=== PATIENT | female | born 1950 | race Caucasian/White ===

== ENCOUNTER → 2017-12-15 10:10 | Outpatient (CLI) | payer MEDICARE, SELFPAY ==
--- NOTE | 2017-12-15 | DI.CT.S_ITS ---
PROCEDURE: CT CHEST ABD PEL WO CON INDICATIONS: NONHODGKINS LYMPHOMA SURVEILLENCE TECHNIQUE: After the administration of oral contrast, 5 mm thick sections acquired from the lung apices to the symphysis pubis. 5 mm thick coronal and sagittal reformats acquired, with additional 7 mm coronal MIP reformats through the lungs. For radiation dose reduction, the following was used: automated exposure control, adjustment of mA and/or kV according to patient size. COMPARISON: [place], [place], PET/CT SKULL BASE TO MID THIGH, 01/23/2011, 8:29. [facility], CT, NECK CHEST ABD PEL W CONTRAST, 09/02/2011, 10:24. [facility], CT, CHEST/ABD/PEL WITH CONTRAST, 08/17/2012, 8:52. [facility], CT, CHEST/ABD/PEL WITH CONTRAST, 06/06/2013, 9:36. [facility], CT, CHEST/ABD/PEL WITHOUT CONTRAST, 05/31/2014, 13:25. [facility], CT, CHEST/ABD/PEL WITH CONTRAST, 11/20/2014, 8:44. [facility], CT, CHEST/ABD/PEL WITH CONTRAST, 12/23/2015, 12:47. [facility], CT, CHEST/ABD/PEL WITHOUT CONTRAST, 11/26/2016, 9:47. FINDINGS: Image quality: Excellent. CHEST: Lungs and pleura: No acute pulmonary opacities. The 2 mm nodule in the right upper lobe, series 4/image 21, is unchanged since 2015. The 2 mm nodule in the left anterior sulcus on image 34 is unchanged since 2010. No pleural effusions or pneumothorax. Central and peripheral airways are patent are normal in caliber. Mediastinum: Heart size is normal. Trace pericardial effusion. Recurrent mediastinal adenopathy is evident, a pretracheal node on series 3/image 19 measuring 1.4 cm in short diameter. A precarinal node on image 22 measures 1.2 cm. There appears to be recurrence of the subcarinal lymph node measuring 1.3 cm on image 26. There may be hilar adenopathy, indeterminate in the absence of IV contrast. Thoracic aorta and central pulmonary arteries are normal in size. Esophagus is normal in caliber. No hiatal hernia. Chest wall: No axillary or supraclavicular adenopathy by size criteria. Thyroid gland again shows coarse calcifications in the right lobe. ABDOMEN: Solid organs: Liver is normal in size. Multiple, varying sized hepatic cysts are reidentified. Gallbladder appears clear. Pancreas is normal in contours. Spleen is normal in size. No adrenal nodules. Both kidneys are normal in size, without hydronephrosis or nephrolithiasis. Peritoneum and bowel: There is an apparent 3.6 x 7.0 cm soft tissue mass along the lesser curvature/cardia of the stomach, difficult to assess in absence of oral contrast. Small and large bowel loops are normal in caliber and wall thickness. No free fluid or air. Nodes and vessels: Considerable central mesenteric fat stranding is present. Innumerable mesenteric lymph nodes have increased in size and number. Bulky retroperitoneal adenopathy has recurred, such as a left para-aortic conglomerate just below the level of the renal hilum, image 66, measuring 2.7 x 3.6 cm. A right periaortic node, image 63, measures 1.5 cm. The adenopathy extends into the proximal iliac chains. Aorta and inferior vena cava are normal in size. Miscellaneous: No ventral hernias. PELVIS: Genitourinary: Bladder wall thickness is normal. Uterus is atrophic. Miscellaneous: No inguinal hernias or adenopathy. Bones: No suspicious bony lesions. Disc degeneration and lower thoracic spine and L5-S1. No vertebral body compression fractures. IMPRESSION: 1. Recurrent mediastinal and retroperitoneal lymphadenopathy consistent with recurrent lymphoma. 2. Mass effect along the lesser curvature aspect of the proximal stomach could represent lymphoma within the gastric wall and/or adjacent adenopathy. 3. Small bilateral pulmonary nodules remain unchanged and likely benign. No new pulmonary abnormalities. 4. Multiple hepatic hypodensities, larger lesions representing cysts, smaller lesions are indeterminate. 5. Mesenteric fat stranding associated with interval increase in size and number of multiple mesenteric lymph nodes. Dictated by: Brad Wilson M.D. on 12/15/2017 at 11:00 Approved by: Brad Wilson M.D. on 12/15/2017 at 11:32
[2017-12-15 10:55] LABS: Add Manual Diff / Slide Review NO; Basophils Percent Auto 0.8 % (0-2); Eosinophils Percent Auto 2.3 % (2-4); Hematocrit 38.8 % (36-46); Hemoglobin 13.3 g/dL (12.0-16.0); Lymphocytes Percent Auto 9.5 % (25-40); Mean Corpuscular HGB Conc 34.3 % (30-36); Mean Corpuscular Hemoglobin 29.4 PG (26-34); Mean Corpuscular Volume 85.7 fL (80-100); Neutrophils Absolute Auto 5200 /uL (3000-5900); Neutrophils Percent Auto 81.4 % (50-75); Platelet Count 201 X10^3/uL (150-400); Red Blood Cell Count 4.53 X10^6/uL (4.0-5.2); White Blood Cell Count 6.4 X10^3/uL (4.5-11.0)
[2017-12-15 11:06] LABS: Alanine Aminotransferase 24 IU/L (9-52); Albumin 4.1 g/dL (3.5-5.0); Albumin Globulin Ratio 1.7 (1.0-2.8); Alkaline Phosphatase 65 U/L (38-126); Aspartate Aminotransferase 21 IU/L (14-36); BUN Creatinine Ratio 24.4 (6-22); Bilirubin Total 0.5 mg/dL (0.2-1.3); Blood Urea Nitrogen 22 mg/dL (7-17); Calcium 9.7 mg/dL (8.4-10.2); Carbon Dioxide 28 mmol/L (22-32); Chloride 103 mmol/L (98-107); Estimated Glomerular Filt Rate > 60.0 mL/min (>60); Globulin 2.4 g/dL (1.7-4.1); Glucose 102 mg/dL (80-110); HEMOLYSIS < 15 (0-50); Potassium 4.5 mmol/L (3.4-5.1); Sodium 139 mmol/L (137-145); Total Protein 6.5 g/dL (6.3-8.2)
== END ==
PROVIDERS: Nurse Practitioner Gerontology; Family Provider Internal Medicine; PCP Internal Medicine; Visit Provider Specialist
DX: C85.90 Non-Hodgkin lymphoma, unspecified, unspecified site (principal); R91.8 Other nonspecific abnormal finding of lung field; K76.89 Other specified diseases of liver
CPT/HCPCS: 36415; 71250; 74176; 80053; 85025

== ENCOUNTER → 2017-12-15 10:18 | Outpatient (CLI) | payer MEDICARE, SELFPAY | PROVIDERS: Family Provider Internal Medicine; PCP Internal Medicine; Visit Provider Nurse Practitioner Gerontology | DX: C82.90 Follicular lymphoma, unspecified, unspecified site (principal) ==

== ENCOUNTER 2018-01-13 06:27 | Day surgery (SDC) | payer MEDICARE, SELFPAY ==
[2018-01-05 12:45] VITALS: BMI 30.4
[2018-01-13] VITALS (7 sets, daily range): BP systolic 110–158; BP diastolic 56–88; PULSE 89–100; RESP 13–21; TEMP 35.9–37; O2SAT 92–100; BMI 30.4
--- NOTE | 2018-01-13 | PATH_ITS ---
Note [facility] Accession Number: [id number] TESTS RESULT FLAG UNITS REF RANGE LAB 01 GASTROHEPATIC LIGAMENT DIAGNOSIS: 02 GASTROHEPATIC LIGAME INCONCLUSIVE. ATYPIA OF UNDETERMINED SIGNIFICANCE. SOMEWHAT MONOTONOUS LYMPHOCYTE POPULATION PRESENT. Pathologist ICD10: 02 R89.6 Antonia Flores MD, Pathologist NPI- [id number] Bob Noble, Animal Ecologist ([facility]) 01 RECEIVED: 2 ALCOHOL FIXED AND 2 DRIED SLIDES. /VDU FLAG LEGEND: L-Low Normal,H-High Normal,LL-Alert Low,HH-Alert High <-Panic Low,>-Panic High,A-Abnormal,AA-Critical Abnormal Performed at: 01 =Z [facility] [address], [place] [address] Jose Stover MD, 02 [facility] [address] [place] [id number] Santana Camacho MD, Performed at: 01 [facility] [address], [place], [place] [id number] MD Jose Stover MD Phone: [phone]
[2018-01-13] MEDS: LACTATED RINGERS 1,000 ML 42 ML IV ×2 (07:15→08:37)
--- NOTE | 2018-01-13 07:54 | PM.PREOP ---
Pre-operative Note Interval Note Pre-op Check: Yes History & Physical Reviewed by Physician and Yes Exam Performed Changes: No
[2018-01-13] MEDS: CLINDAMYCIN 900 MG/50 ML PIGGYBACK 50 MG IV (08:00)
--- NOTE | 2018-01-13 08:29 | SUR.OPER ---
Supine on padded OR bed, head on pillow, arms secured on padded arm boards at <90 degrees abduction, legs uncrossed, safety belt at thigh, tape over blanket over lower legs.
[2018-01-13] MEDS: BUPIVACAINE 0.5% (PF) VIAL 30 ML INJ (09:14)
[2018-01-13] MEDS: OXYCODONE/ACETAMINOPHEN 5/325 TABLET 1 TAB PO (09:48)
--- NOTE | 2018-01-13 09:48 | P.OP_ITS ---
Operative Date/Time/Diagnoses Date of procedure: 01/13/18 Time of procedure: 09:34 Pre-op diagnosis: Probable lymphoma Post-op diagnosis: same Procedure & Clinicians Procedure: Laparoscopic excisional biopsy of node in the gastrohepatic ligament and Jose Martin-Cut biopsy of a para-aortic node Same procedure as scheduled: Yes Indications: Diagnostic to determine if recurrence of lymphoma is same cell type as original diagnosis Surgeon: Marlo Ernst Click Yes if Unassisted: Yes Anesthesia Type: General Operative Notes Closure Type: primary Specimen(s): other (Node and Jose Martin-Cut tissue) Implants & Drains: None Estimated Blood Loss (mL): 5 Procedure in detail: The patient is placed supine on the operating room table and underwent general endotracheal anesthesia. She was prepped and draped in the usual fashion. Local anesthetic was infiltrated and a curvilinear incision made in the infraumbilical fold. This carried down to level of fascia which was opened under direct vision. Two stay sutures of 0 Polysorb were placed in the fascia. An Rodrick cannula was inserted. The abdomen a quick examination 2 additional ports were placed in the right abdomen. The liver was elevated and a node not far from the edge of the distal lesser curve was readily identified. Using Harmonic scalpel it was dissected from the surrounding structures and removed. It was placed in formalin after placing some of the tissue in preservative for flow cytometry and after making touch prep slides. I identified the very large mass seen on PET-CT. It was not actually in the gastrohepatic omentum but just posterior to it. It appeared to represent a very large para-aortic node overlying what would have been the superior edge of the pancreas. I decided that given the node that I removed already , a diagnosis would probably be easily made from that. Removal of the larger node would probably we fraught with risks of significant injury to the head/body of the pancreas as well as bleeding and lymphatic lymph leak. I attempted a Jose Martin- cut biopsy and obtained a small amount of tissue but found that technique to be somewhat wanting as the length of the needle was not quite adequate to the location of the specimen. There was no significant bleeding through the case. The ports were all removed. The stay sutures at the umbilicus were tied and an additional 2 0 Maxon was placed between the stay sutures. The skin was closed in all areas with 4 Vicryl subcuticular stitch and Steri-Strips. Dressings were applied the patient was awakened and taken to recovery room good condition. Complications: none Condition: stable Disposition: PACU Plan for aftercare: In the office
--- NOTE | 2018-01-13 10:06 | SUR.PHASEII ---
Frequent dry cough noted, pt reported this was normal for her. Wheezes noted throughout her lungs. Dr. Ernst notified and MD evaluated patient. No new orders. Report given to Jaclyn
== END 2018-01-13 10:10 | disposition home or self-care (01) ==
PROVIDERS: Family Provider Internal Medicine; PCP Internal Medicine; Visit Provider Specialist
PROC: (CPT 49320; principal; 2018-01-13 07:45)
DX: R89.6 Abnormal cytological findings in specimens from other organs, systems and tissues (principal); R19.00 Intra-abdominal and pelvic swelling, mass and lump, unspecified site; I10 Essential (primary) hypertension
CPT/HCPCS: 38570; J1100; J2250; J2405; J2704; J3010

== ENCOUNTER 2018-03-03 06:31 | Day surgery (SDC) | payer MEDICARE, SELFPAY ==
[2018-02-25 08:32] VITALS: BMI 30.4
[2018-03-03] VITALS (8 sets, daily range): BP systolic 123–152; BP diastolic 69–85; PULSE 92–107; RESP 10–16; TEMP 36.5–36.9; O2SAT 97–100; BMI 30.4
[2018-03-03] MEDS: LACTATED RINGERS 1,000 ML 42 ML IV (07:51)
--- NOTE | 2018-03-03 07:52 | SUR.OPER ---
Supine on padded OR bed, head on gel donut, rolled towel between shoulder blades, arm padded and tucked at side, legs uncrossed, safety belt at thigh, tape over blanket over lower legs .
--- NOTE | 2018-03-03 08:05 | PM.HP.1 ---
History of Present Illness Date Patient Seen: 03/03/18 Time Patient Seen: 08:00 Chief complaint: [id number] PORTACATH PLACEMENT Narrative: Patient is a woman for Portal cleft placement she has a recurrent lymphoma. She is right-hand dominant I plan to place on the left side. Patient History Medical History Anxiety (Acute) Diffuse lymphadenopathy (Acute) HTN (hypertension) (Acute) History of non-Hodgkin's lymphoma (Acute) Low back pain (Acute) Panic disorder (Acute) Rheumatoid arthritis (Acute) Surgical History H/O breast biopsy (Acute ~1985) History of appendectomy (Acute ~1966) History of thoracentesis (Acute) Family & Social History Family History: Reviewed 03/03/18 by Marlo Ernst MD Social History: household members spouse Tobacco & Substance use: Smoking Status Never smoker alcohol intake never Substance Use Type does not use Meds Home Medications Medication Instructions Recorded Confirmed Type acetaminophen 650 mg PO Q8H PRN #0 12/01/12 01/13/18 History cholecalciferol (vitamin D3) 4,000 iu PO QDAY #0 12/01/12 01/13/18 History [Vitamin D3] imipramine HCl [Tofranil] 50 mg PO Q DAY #0 12/01/12 01/13/18 History lorazepam 0.5 mg PO HSP #0 12/01/12 01/13/18 History sertraline 50 mg PO QDAY #0 12/01/12 01/13/18 History losartan 50 mg PO QDAY #0 12/03/16 01/13/18 History hydrocodone-acetaminophen [[place]] 1 tab PO Q4H PRN #10 tab 01/13/18 Rx Benadryl 1 tab PO 1-2XD PRN 02/21/18 02/21/18 History ibuprofen 2 cap Q4-6H PRN 02/21/18 02/21/18 History ondansetron HCl [Zofran] 4 mg PO Q6-8H PRN #30 tab 02/22/18 Rx Allergies Allergy/AdvReac Type Severity Reaction Status Date / Time amoxicillin Allergy Intermediate Rash Verified 02/25/18 08:29 Sulfa (Sulfonamide Allergy Intermediate Hives Verified 02/25/18 08:29 Antibiotics) Iodinated Contrast- Oral and Allergy Unknown Verified 02/25/18 08:29 IV Dye Review of Systems Review of Systems All systems reviewed & are unremarkable except as noted in HPI and below Exam Vital Signs (past 8 hours): - 03/03/18 07:23 Temperature 97.8 F Pulse Rate 107 H Respiratory Rate 16 Blood Pressure 152/85 H Pulse Oximetry 98 Oxygen Delivery Method Room Air Narrative Exam Narrative: Operative in no apparent distress. Lungs are clear to auscultation no rales or rhonchi. Heart regular rate and rhythm without murmur gallop. Abdomen is soft nontender without mass. Alert and oriented x3. Skin over chest without rash. Assessment & Plan Plan: Assessment/Plan Narrative: Patient for chemotherapy who I have request for Port-A-Cath. I have discussed the procedure and rationale. Risks of bleeding, infection, lung collapse DVT pulmonary embolism all discussed. She appears to understand and wishes to proceed
[2018-03-03] MEDS: CLINDAMYCIN 900 MG/50 ML PIGGYBACK 50 MG IV (08:10)
[2018-03-03] MEDS: HEPARIN 5,000 UNIT, SODIUM CHLORIDE 0.9% 50 ML IV (08:48)
[2018-03-03] MEDS: LIDOCAINE 1% 30 ML INJ INJ (08:48)
--- NOTE | 2018-03-03 08:53 | DI.RAD.S_ITS ---
PROCEDURE: XR CHEST 1V INDICATIONS: PORT A CATH TECHNIQUE: One view of the chest was acquired. COMPARISON: [facility], , CHEST 2 VIEW, 10/27/2010, 11:15. FINDINGS: Surgical changes and devices: Left chest port with tip projecting in the lower SVC Lungs and pleura: No pleural effusions or pneumothorax. Lung volumes are decreased. No acute consolidation. There is scattered subsegmental atelectasis and/or scarring Mediastinum: Mediastinal contours appear normal. Heart size is normal. Bones and chest wall: No suspicious bony lesions. Overlying soft tissues appear unremarkable. IMPRESSION: Low lung volumes and scattered atelectasis. Left chest port with the tip projecting in the lower SVC Dictated by: Carl Herr M.D. on 03/03/2018 at 10:17 Approved by: Carl Herr M.D. on 03/03/2018 at 10:18
--- NOTE | 2018-03-03 09:09 | PM.PREOP ---
Pre-operative Note Interval Note Pre-op Check: Yes History & Physical exam performed today by Physician Changes: No H&P completed within 30 days and has changed as indicated here:: performed prior to procedure.
--- NOTE | 2018-03-03 09:29 | PM.OP.1 ---
Operative Date/Time/Diagnoses Date of procedure: 03/03/18 Time of procedure: 09:29 Pre-op diagnosis: Lymphoma non-Hodgkin's B-cell Post-op diagnosis: same Procedure & Clinicians Procedure: Placement of left subclavian Port-A-Cath Same procedure as scheduled: Yes Indications: IV access for chemo Surgeon: Marlo Ernst Click Yes if Unassisted: Yes Anesthesia Type: General Operative Notes Findings: Tip in the distal SVC near the atrium. No evidence of pneumothorax Closure Type: primary Specimen(s): none sent Implants & Drains: Slim Port-A-Cath Estimated Blood Loss (mL): 5 Blood products transfused: none Procedure in detail: The patient is placed supine on the operating room table with a ship roll between her shoulders. She underwent general LMA anesthesia. She was prepped and draped in the usual fashion. Local anesthetic was infiltrated in field block fashion beneath the left clavicle. Transverse incision was made and carried into the subcu. Needle was inserted on 1st attempt into the subclavian vein. Guidewire was passed the needle removed. Pocket was created once fluoroscopy revealed the wire going into the correct location. The catheter was put together and tapered to appropriate length after putting it in the pocket. Dilator and introducer were passed over the guidewire under fluoroscopic visualization. The guidewire and dilator were removed leaving the introducer in place. The catheter was passed through the introducer and peeled away. This left the tip in the atrium. I backed it out in lower added on the chest wall. It was tacked into place with interrupted silk sutures. The tip appeared to be in the distal SVC. The port was aspirated and flushed with heparinized saline. The subcu was closed with interrupted 3 0 Polysorb. The skin was closed running for Polysorb subcuticular stitch and Steri-Strips. Dressing was applied the patient was awakened and taken to the recovery area in good condition. Chest x-ray was performed there. The above-mentioned findings are noted. Complications: none Condition: stable Disposition: PACU Plan for aftercare: Follow-up in the office
--- NOTE | 2018-03-03 09:35 | P.OP_ITS ---
Operative Date/Time/Diagnoses Date of procedure: 03/03/18 Time of procedure: 09:29 Pre-op diagnosis: Lymphoma non-Hodgkin's B-cell Post-op diagnosis: same Procedure & Clinicians Procedure: Placement of left subclavian Port-A-Cath Same procedure as scheduled: Yes Indications: IV access for chemo Surgeon: Marlo Ernst Click Yes if Unassisted: Yes Anesthesia Type: General Operative Notes Findings: Tip in the distal SVC near the atrium. No evidence of pneumothorax Closure Type: primary Specimen(s): none sent Implants & Drains: Slim Port-A-Cath Estimated Blood Loss (mL): 5 Blood products transfused: none Procedure in detail: The patient is placed supine on the operating room table with a ship roll between her shoulders. She underwent general LMA anesthesia. She was prepped and draped in the usual fashion. Local anesthetic was infiltrated in field block fashion beneath the left clavicle. Transverse incision was made and carried into the subcu. Needle was inserted on 1st attempt into the subclavian vein. Guidewire was passed the needle removed. Pocket was created once fluoroscopy revealed the wire going into the correct location. The catheter was put together and tapered to appropriate length after putting it in the pocket. Dilator and introducer were passed over the guidewire under fluoroscopic visualization. The guidewire and dilator were removed leaving the introducer in place. The catheter was passed through the introducer and peeled away. This left the tip in the atrium. I backed it out in lower added on the chest wall. It was tacked into place with interrupted silk sutures. The tip appeared to be in the distal SVC. The port was aspirated and flushed with heparinized saline. The subcu was closed with interrupted 3 0 Polysorb. The skin was closed running for Polysorb subcuticular stitch and Steri -Strips. Dressing was applied the patient was awakened and taken to the recovery area in good condition. Chest x-ray was performed there. The above- mentioned findings are noted. Complications: none Condition: stable Disposition: PACU Plan for aftercare: Follow-up in the office
== END 2018-03-03 10:02 | disposition home or self-care (01) ==
PROVIDERS: Family Provider Internal Medicine; PCP Internal Medicine; Visit Provider Specialist
PROC: (CPT 36561; principal; 2018-03-03 07:45)
DX: Z45.2 Encounter for adjustment and management of vascular access device (principal); F41.9 Anxiety disorder, unspecified; I10 Essential (primary) hypertension; M06.9 Rheumatoid arthritis, unspecified; M54.9 Dorsalgia, unspecified; F41.0 Panic disorder [episodic paroxysmal anxiety]
CPT/HCPCS: 36561; 71045; 76000; C1788; J0171; J1100; J1644; J2405; J2704; J3010

== ENCOUNTER 2018-06-09 17:23 | Emergency (ER) | payer MEDICARE, SELFPAY ==
[2018-06-09 17:25] VITALS: BP 181/93; PULSE 116; RESP 16; TEMP 38.6; O2SAT 99; BMI 31.2
--- NOTE | 2018-06-09 18:03 | DI.RAD.S_ITS ---
PROCEDURE: XR CHEST 1V INDICATIONS: suspected sepsis TECHNIQUE: One view of the chest was acquired. COMPARISON: [facility], [place], XR CHEST 1V, 03/03/2018, 9:14. FINDINGS: Surgical changes and devices: Left chest port with the tip projecting in the mid SVC. Lungs and pleura: No pleural effusions or pneumothorax. Patchy retrocardiac opacities which appear unchanged probably scarring/atelectasis. Mediastinum: Mediastinal contours appear normal. Heart size is normal. Bones and chest wall: No suspicious bony lesions. Overlying soft tissues appear unremarkable. IMPRESSION: No acute disease or interval change. Dictated by: Carl Herr M.D. on 06/09/2018 at 19:13 Approved by: Carl Herr M.D. on 06/09/2018 at 19:15
[2018-06-09 18:34] LABS: Hematocrit 31.2 % (36-46); Mean Corpuscular HGB Conc 35.3 % (30-36); Mean Corpuscular Hemoglobin 30.3 PG (26-34); Mean Corpuscular Volume 85.9 fL (80-100); Platelet Count 188 X10^3/uL (150-400); Red Blood Cell Count 3.63 X10^6/uL (4.0-5.2); Red Cell Distribution Width 14.9 % (11.6-14.8)
[2018-06-09 18:36] LABS: Prothrombin Time 11.9 SECONDS (10.1-12.7)
[2018-06-09 18:37] LABS: White Blood Cell Count 1.8 X10^3/uL (4.5-11.0)
[2018-06-09 18:38] LABS: Add Manual Diff / Slide Review YES
[2018-06-09 18:39] LABS: PTT Partial Thromboplastin Tim 33 SECONDS (26.4-36.2)
[2018-06-09 18:43] LABS: Alanine Aminotransferase 28 IU/L (9-52); Albumin Globulin Ratio 1.4 (1.0-2.8); Alkaline Phosphatase 83 U/L (38-126); Aspartate Aminotransferase 27 IU/L (14-36); BUN Creatinine Ratio 17.5 (6-22); Bilirubin Total 0.6 mg/dL (0.2-1.3); Blood Urea Nitrogen 14 mg/dL (7-17); Calcium 9.3 mg/dL (8.4-10.2); Carbon Dioxide 24 mmol/L (22-32); Chloride 97 mmol/L (98-107); Estimated Glomerular Filt Rate > 60.0 mL/min (>60); Globulin 2.8 g/dL (1.7-4.1); Glucose 100 mg/dL (80-110); HEMOLYSIS < 15 (0-50); Lactate (Lactic Acid) 1.2 mmol/L (0.7-2.1); Lipase 107 U/L (23-300); Potassium 4.2 mmol/L (3.4-5.1); Sodium 130 mmol/L (137-145); Total Protein 6.8 g/dL (6.3-8.2)
[2018-06-09 18:56] LABS: Procalcitonin 0.13 ng/mL (<0.5)
[2018-06-09] MEDS: SODIUM CHLORIDE 0.9% 1,000 ML 1000 ML IV (19:31)
[2018-06-09 19:32] LABS: Band Neutrophils Percent 3.3 % (3-7); Eosinophils Percent Manual 12.2 % (2-4); Lymphocytes Percent Manual 3.3 % (25-45); Neutrophils Absolute Manual 1159 /uL (3000-5900); RBC Morphology Normal Morphology; Segmented Neutrophils Percent 61.1 % (38-70); Total Cells Counted 90
[2018-06-09 19:40] VITALS: BP 161/76; PULSE 88; RESP 18; O2SAT 98
[2018-06-09 20:00] LABS: Influenza A and B by PCR Rapid Negative (Negative)
[2018-06-09 20:31] LABS: Bacteria Urine None Seen; RBC Urine None Seen (0-5/HPF); WBC Urine None Seen (0-5/HPF)
[2018-06-09 20:32] LABS: Appearance Urine UA CLEAR; Bilirubin Urine UA NEGATIVE (NEGATIVE); Color Urine UA YELLOW; Glucose Urine UA NEGATIVE (Negative); Ketones Urine UA NEGATIVE (NEGATIVE); Leukocyte Esterase Urine UA NEGATIVE (NEGATIVE); Nitrite Urine UA NEGATIVE (Negative); Occult Blood Urine UA NEGATIVE (Negative); Protein Urine UA NEGATIVE (Negative); Specific Gravity Urine UA <=1.005 (1.000-1.035); Urobilinogen Urine UA 0.2 E.U./dL (0.2)
[2018-06-09 20:38] LABS: Culture Indicated Urine Cult Not Indicated; Urine Comments Microscopic Normal
[2018-06-09 21:27] VITALS: BP 154/69; PULSE 97; RESP 16; O2SAT 100
--- NOTE | 2018-06-09 21:49 | PC.NURSE ---
discontinued port access with saline flush followed by 500u heparin, covered with bandaid.
--- NOTE | 2018-06-10 15:40 | ED.FEVER ---
HPI - Fever General Chief Complaint: Fever Stated Complaint: ONCOLOGY PATIENT HAS FEVER Time Seen by Provider: 06/09/18 18:42 Source: patient and family Mode of arrival: ambulatory Limitations: no limitations History of Present Illness HPI Narrative: Patient comes to the emergency department complaining of fever and body aches that started today. Her T-max was 101?. She denies any other symptoms. No cough, rhinorrhea, sore throat, ear pain, chest pain, shortness of breath, abdominal pain, nausea, or new diarrhea. Patient has not been exposed to anybody who has been known to be sick. She states she has been around her 8 in 10-year-old grandchildren, but they have been well, as far she knows. Patient is currently receiving chemotherapy for non-Hodgkin's lymphoma. She states her last round was on June 02. Patient has a longstanding history of this disease, which was diagnosed 20 years ago. She states she was in remission for 5 years, and then several months ago, was found to have new masses, so was started on chemo again. She has had for cycle so far and states she is getting it every 28 days. She has been seen Dr. Kearns for this. The patient states that she took Tylenol prior to coming to the emergency department, and actually is feeling quite well now. She states that her white blood cell counts have been normal throughout her courses of chemotherapy. She states that as far as she knows, the lymphoma is responding well to the chemo. Related Data Home Medications Medication Instructions Recorded Confirmed acetaminophen 650 mg PO Q8H PRN #0 12/01/12 05/30/18 cholecalciferol (vitamin D3) 4,000 iu PO QDAY #0 12/01/12 05/30/18 [Vitamin D3] imipramine HCl [Tofranil] 50 mg PO Q DAY #0 12/01/12 05/30/18 lorazepam 0.5 mg PO HSP #0 12/01/12 05/30/18 sertraline 50 mg PO QDAY #0 12/01/12 05/30/18 losartan 50 mg PO QDAY #0 12/03/16 05/30/18 Benadryl 1 tab PO 1-2XD PRN 02/21/18 05/30/18 ibuprofen 2 cap Q4-6H PRN 02/21/18 05/30/18 Previous Rx's Medication Instructions Recorded ondansetron HCl [Zofran] 4 mg PO Q6-8H PRN #30 tab 02/22/18 lorazepam 0.5 mg PO BEDTIME PRN #30 tab 05/30/18 Allergies Allergy/AdvReac Type Severity Reaction Status Date / Time amoxicillin Allergy Intermediate Rash Verified 06/09/18 17:25 Sulfa (Sulfonamide Allergy Intermediate Hives Verified 06/09/18 17:25 Antibiotics) Iodinated Contrast- Oral and Allergy Unknown Verified 06/09/18 17:25 IV Dye Review of Systems Constitutional Reports body ache(s), Denies chills, Reports fever(s), Denies lethargy and Denies weakness Eyes Denies change in vision, Denies eye discharge, Denies irritation and Denies loss of vision ENT Ears, Nose, Mouth, and Throat: Denies change in voice, Denies neck pain and Denies sore throat Cardiovascular Denies chest pain, Denies irregular heart rhythm, Denies lightheadedness, Denies palpitations, Denies dyspnea, Denies dyspnea on exertion and Denies orthopnea Respiratory Denies cough, Denies dyspnea, Denies dyspnea on exertion and Denies wheezing Gastrointestinal Gastrointestinal: Denies abdominal pain, Denies change in bowel habits, Denies diarrhea, Denies nausea and Denies vomiting Genitourinary Denies hematuria, Denies flank pain, Denies urinary incontinence and Denies urinary urgency Musculoskeletal Denies neck pain Integumentary/Breasts Denies pruritus, Denies erythema, Denies rash and Denies wounds Neurologic Denies confusion, Denies loss of vision and Denies weakness Psychiatric Denies anxiety, Denies confusion, Denies depression, Denies homicidal ideation and Denies suicidal ideation Endocrine Denies palpitations Hematologic/Lymphatic Denies easy bruising Allergic/Immunologic Denies wheezing [facility] Medical History Anxiety (Acute) Diffuse lymphadenopathy (Acute) HTN (hypertension) (Acute) History of non-Hodgkin's lymphoma (Acute) Low back pain (Acute) Panic disorder (Acute) Rheumatoid arthritis (Acute) Surgical History H/O breast biopsy (Acute ~1985) History of appendectomy (Acute ~1966) History of thoracentesis (Acute) Family History Mother Hypertension Stroke Brother Hodgkins lymphoma Grandmother Stroke Social History marital status: household members: spouse Smoking Status: Never smoker alcohol intake: never Exam Initial Vital Signs Initial Vital Signs: Vital Signs Temperature 101.4 F H 06/09/18 17:25 Pulse Rate 116 H 06/09/18 17:25 Respiratory Rate 16 06/09/18 17:25 Blood Pressure 181/93 H 06/09/18 17:25 Pulse Oximetry 99 06/09/18 17:25 Const General: cooperative and well developed Nutritional Appearance: well nourished Orientation: alert, awake, oriented x3 and not confused HENMT Head: normocephalic and atraumatic Ears: external ears normal Nose: external nose normal and No nasal discharge Face and sinus: face symmetric and No dry mucous membranes Mouth: oral mucosae normal and moist mucous membranes Teeth and gingiva: dentition normal Throat: tonsils normal and uvula midline Eyes General: appearance normal, both eyes and all related structures Eyelids: eyelids normal Conjunctivae: conjunctivae normal Sclera: sclerae normal Pupils: PERRL EOM: EOM intact bilaterally Neck Neck: normal visual inspection, trachea midline, No lymphadenopathy, No midline deformity and No JVD Lymphatic: No lymphedema Chest Chest: normal inspection of the chest Resp Effort & Inspection: normal respiratory effort, able to speak in complete sentences, no respiratory distress and no use of accessory muscles Auscultation: clear to auscultation bilaterally, no rales, no rhonchi and no wheezes Cardio Rate: regular rate Rhythm: regular rhythm Heart Sounds: no click, no gallops, no murmurs and no rubs Pulses: normal peripheral pulses GI Inspection: non-distended Palpation: soft, no hepatosplenomegaly, No guarding, No pulsatile mass and No tender Back/Spine/Pelvis Back: No CVA tenderness Cervical Spine: cervical ROM normal and No pain with cervical ROM Thoracic/Lumbar Spine: thoracic and lumbar spine normal to inspection Skin General: no rashes or lesions noted, No jaundice and No petechiae Neuro General: alert, oriented x3, gait normal and no focal motor deficits Speech: speech normal Extrem General: full ROM, no clubbing, cyanosis or edema, no pedal edema and no calf tenderness Psych Appearance: well kempt Mental Status: mental status grossly normal Attitude: cooperative Thought Content: normal and suicidality Judgment: judgment good Course Course Narrative: In follow-up for her scheduled appointment tomorrow. Patient was given a L fluid and worked up in the emergency department for her fever. Chest x-ray, urinalysis and blood cultures were all performed, as well as influenza testing. CBC and CMP were also done. Patient's white blood cell count was found to be significantly less than her previously normal levels, a 1.8. Her absolute neutrophil count was 1159. The patient was extremely well-appearing, and did not have any other complaints. I spoke with Dr. Bojorquez, who is on-call for the patient's oncology group. We reviewed the patient's labs on the symptoms, and Dr. Bojorquez felt the patient could go home, and follow up for her scheduled oncology appointment tomorrow. I discussed the plan with patient and family, who were agreeable. We have discussed the usual indications for return, as well. Orders Ordered: Discontinued Medications Sodium Chloride (Normal Saline 0.9%) 1,000 mls @ 1,000 mls/hr IV BOLUS ONE Stop: 06/09/18 19:02 Last Infusion: 06/09/18 20:40 Dose: 0 mls/hr Admin: 06/09/18 19:31 Dose: 1,000 mls/hr Sodium Chloride (Normal Saline 0.9%) 1,000 mls @ 1,000 mls/hr IV BOLUS ONE Stop: 06/09/18 19:59 Last Admin: 06/09/18 21:46 Dose: Not Given MDM - Fever Medical Records Attestation: I reviewed the patient's medical records. Lab Data Attestation: I reviewed the patient's lab results. Result diagrams: 06/09/18 18:15 06/09/18 18:15 Lab Results 06/09/18 06/09/18 06/09/18 Range/Units 18:15 18:15 18:15 WBC 1.8 L* (4.5-11.0) X10^3/uL RBC 3.63 L (4.0-5.2) X10^6/uL Hgb 11.0 L (12.0-16.0) g/dL Hct 31.2 L (36-46) % MCV 85.9 (80-100) fL MCH 30.3 (26-34) PG MCHC 35.3 (30-36) % RDW 14.9 H (11.6-14.8) % Plt Count 188 (150-400) X10^3/uL Neut % (Auto) Not Reportable Lymph % (Auto) Not Reportable [place] % (Auto) Not Reportable Eos % (Auto) Not Reportable Baso % (Auto) Not Reportable Lymph # (Auto) Not Reportable [place] # (Auto) Not Reportable Baso # (Auto) Not Reportable Total Counted 90 Seg Neutrophils % 61.1 (38-70) % Band Neutrophils % 3.3 (3-7) % Lymphocytes % (Manual) 3.3 L (25-45) % Monocytes % (Manual) 20.0 H (2-11) % Eosinophils % (Manual) 12.2 H (2-4) % Neutrophils # (Manual) 1159 L (3510-7399) /uL RBC Morphology Normal morphology PT 11.9 (10.1-12.7) SECONDS INR 1.0 (0.9-1.3) APTT 33 (26.4-36.2) SECONDS Sodium (137-145) mmol/L Potassium (3.4-5.1) mmol/L Chloride (98-107) mmol/L Carbon Dioxide (22-32) mmol/L BUN (7-17) mg/dL Creatinine (0.52-1.04) mg/dL Estimated GFR (>60) mL/min BUN/Creatinine Ratio (6-22) Glucose (80-110) mg/dL Lactate (0.7-2.1) mmol/L Calcium (8.4-10.2) mg/dL Total Bilirubin (0.2-1.3) mg/dL AST (14-36) IU/L ALT (9-52) IU/L Alkaline Phosphatase (38-126) U/L Total Protein (6.3-8.2) g/dL Albumin (3.5-5.0) g/dL Globulin (1.7-4.1) g/dL Albumin/Globulin Ratio (1.0-2.8) Lipase (23-300) U/L Procalcitonin 0.13 (<0.5) ng/mL Urine Color Urine Appearance Urine pH (4.5-8.0) Ur Specific [place] (1.000-1.035) Urine Protein (Negative) Urine Glucose (UA) (Negative) g/dL Urine Ketones (NEGATIVE) Urine Occult Blood (Negative) Urine Nitrate (Negative) Urine Bilirubin (NEGATIVE) Urine Urobilinogen (0.2) E.U./dL Ur Leukocyte Esterase (NEGATIVE) Urine RBC (0-5/HPF) Urine WBC (0-5/HPF) Urine Bacteria (None) Ur Culture Indicated? Micro UA Comment Influenza A & B (PCR) (Negative) 06/09/18 06/09/18 06/09/18 Range/Units 18:15 18:15 19:40 WBC (4.5-11.0) X10^3/uL RBC (4.0-5.2) X10^6/uL Hgb (12.0-16.0) g/dL Hct (36-46) % MCV (80-100) fL MCH (26-34) PG MCHC (30-36) % RDW (11.6-14.8) % Plt Count (150-400) X10^3/uL Neut % (Auto) Lymph % (Auto) [place] % (Auto) Eos % (Auto) Baso % (Auto) Lymph # (Auto) [place] # (Auto) Baso # (Auto) Total Counted Seg Neutrophils % (38-70) % Band Neutrophils % (3-7) % Lymphocytes % (Manual) (25-45) % Monocytes % (Manual) (2-11) % Eosinophils % (Manual) (2-4) % Neutrophils # (Manual) (7430-6065) /uL RBC Morphology PT (10.1-12.7) SECONDS INR (0.9-1.3) APTT (26.4-36.2) SECONDS Sodium 130 L (137-145) mmol/L Potassium 4.2 (3.4-5.1) mmol/L Chloride 97 L (98-107) mmol/L Carbon Dioxide 24 (22-32) mmol/L BUN 14 (7-17) mg/dL Creatinine 0.80 (0.52-1.04) mg/dL Estimated GFR > 60.0 (>60) mL/min BUN/Creatinine Ratio 17.5 (6-22) Glucose 100 (80-110) mg/dL Lactate 1.2 (0.7-2.1) mmol/L Calcium 9.3 (8.4-10.2) mg/dL Total Bilirubin 0.6 (0.2-1.3) mg/dL AST 27 (14-36) IU/L ALT 28 (9-52) IU/L Alkaline Phosphatase 83 (38-126) U/L Total Protein 6.8 (6.3-8.2) g/dL Albumin 4.0 (3.5-5.0) g/dL Globulin 2.8 (1.7-4.1) g/dL Albumin/Globulin Ratio 1.4 (1.0-2.8) Lipase 107 (23-300) U/L Procalcitonin (<0.5) ng/mL Urine Color Urine Appearance Urine pH (4.5-8.0) Ur Specific [place] (1.000-1.035) Urine Protein (Negative) Urine Glucose (UA) (Negative) g/dL Urine Ketones (NEGATIVE) Urine Occult Blood (Negative) Urine Nitrate (Negative) Urine Bilirubin (NEGATIVE) Urine Urobilinogen (0.2) E.U./dL Ur Leukocyte Esterase (NEGATIVE) Urine RBC (0-5/HPF) Urine WBC (0-5/HPF) Urine Bacteria (None) Ur Culture Indicated? Micro UA Comment Influenza A & B (PCR) Negative (Negative) 06/09/18 Range/Units 20:20 WBC (4.5-11.0) X10^3/uL RBC (4.0-5.2) X10^6/uL Hgb (12.0-16.0) g/dL Hct (36-46) % MCV (80-100) fL MCH (26-34) PG MCHC (30-36) % RDW (11.6-14.8) % Plt Count (150-400) X10^3/uL Neut % (Auto) Lymph % (Auto) [place] % (Auto) Eos % (Auto) Baso % (Auto) Lymph # (Auto) [place] # (Auto) Baso # (Auto) Total Counted Seg Neutrophils % (38-70) % Band Neutrophils % (3-7) % Lymphocytes % (Manual) (25-45) % Monocytes % (Manual) (2-11) % Eosinophils % (Manual) (2-4) % Neutrophils # (Manual) (1879-2072) /uL RBC Morphology PT (10.1-12.7) SECONDS INR (0.9-1.3) APTT (26.4-36.2) SECONDS Sodium (137-145) mmol/L Potassium (3.4-5.1) mmol/L Chloride (98-107) mmol/L Carbon Dioxide (22-32) mmol/L BUN (7-17) mg/dL Creatinine (0.52-1.04) mg/dL Estimated GFR (>60) mL/min BUN/Creatinine Ratio (6-22) Glucose (80-110) mg/dL Lactate (0.7-2.1) mmol/L Calcium (8.4-10.2) mg/dL Total Bilirubin (0.2-1.3) mg/dL AST (14-36) IU/L ALT (9-52) IU/L Alkaline Phosphatase (38-126) U/L Total Protein (6.3-8.2) g/dL Albumin (3.5-5.0) g/dL Globulin (1.7-4.1) g/dL Albumin/Globulin Ratio (1.0-2.8) Lipase (23-300) U/L Procalcitonin (<0.5) ng/mL Urine Color Yellow Urine Appearance Clear Urine pH 6.0 (4.5-8.0) Ur Specific [place] <=1.005 (1.000-1.035) Urine Protein Negative (Negative) Urine Glucose (UA) Negative (Negative) g/dL Urine Ketones Negative (NEGATIVE) Urine Occult Blood Negative (Negative) Urine Nitrate Negative (Negative) Urine Bilirubin Negative (NEGATIVE) Urine Urobilinogen 0.2 (0.2) E.U./dL Ur Leukocyte Esterase Negative (NEGATIVE) Urine RBC None seen (0-5/HPF) Urine WBC None seen (0-5/HPF) Urine Bacteria None seen (None) Ur Culture Indicated? Cult not indicated Micro UA Comment Microscopic normal Influenza A & B (PCR) (Negative) Imaging Data Chest x-ray: Attestation: I personally reviewed and interpreted this imaging study as follows: (Negative) Radiologist's impression: PROCEDURE: XR CHEST 1V INDICATIONS: suspected sepsis TECHNIQUE: One view of the chest was acquired. COMPARISON: [facility], CR, XR CHEST 1V, 03/03/2018, 9:14. FINDINGS: Surgical changes and devices: Left chest port with the tip projecting in the mid SVC. Lungs and pleura: No pleural effusions or pneumothorax. Patchy retrocardiac opacities which appear unchanged probably scarring/atelectasis. Mediastinum: Mediastinal contours appear normal. Heart size is normal. Bones and chest wall: No suspicious bony lesions. Overlying soft tissues appear unremarkable. IMPRESSION: No acute disease or interval change. Dictated by: Carl Herr M.D. on 06/09/2018 at 19:13 Approved by: Carl Herr M.D. on 06/09/2018 at 19:15 Discharge Plan Departure Patient Disposition: Home Clinical Impression: Fever of unknown origin, Non-Hodgkin lymphoma Discharge Date/Time: 06/09/18 21:54 Interventions: ED Discharge Assessment Last Done: 06/09/18 21:53 Instructions: DI for Fever (Symptom) -- Adult Activity Restrictions/Additional Instructions: Your labs all look good, other than your white blood cell count, which was low. This was the first time your white blood cell count was low. Your case has been discussed with Dr. Isaac, who feels that you can go home and follow up for your appointment tomorrow. Prescriptions: No Action imipramine HCl [Tofranil] 50 MG tablet 50 mg PO Q DAY Qty: 0 RF: 0 acetaminophen 650 mg Tablet Extended Release 650 mg PO Q8H PRN (Reason: pain) Qty: 0 RF: 0 lorazepam 0.5 MG tablet 0.5 mg PO HSP Qty: 0 RF: 0 sertraline 50 MG tablet 50 mg PO QDAY Qty: 0 RF: 0 cholecalciferol (vitamin D3) [Vitamin D3] 2,000 UNIT capsule 4,000 iu PO QDAY Qty: 0 RF: 0 losartan 50 MG tablet 50 mg PO QDAY Qty: 0 RF: 0 ibuprofen 200 mg capsule 2 cap Q4-6H PRN (Reason: Pain (Scale Score 1-3)) RF: 0 Benadryl 25 mg tablet 1 tab PO 1-2XD PRN (Reason: Congestion) RF: 0 ondansetron HCl [Zofran] 4 mg Tablet 4 mg PO Q6-8H PRN (Reason: Nausea) Qty: 30 RF: 2 lorazepam 0.5 mg Tablet 0.5 mg PO BEDTIME PRN (Reason: Sleep) Qty: 30 RF: 0 Referrals: Marlene Kearns MD [Physician] -
== END 2018-06-09 21:54 | disposition home or self-care (01) ==
PROVIDERS: Emergency Medicine; Emergency Provider Emergency Medicine; Family Provider Internal Medicine; PCP Internal Medicine
DX: R50.9 Fever, unspecified (principal); C85.90 Non-Hodgkin lymphoma, unspecified, unspecified site
CPT/HCPCS: 36415; 36591; 71045; 80053; 81001; 83605; 83690; 84145; 85025; 85610; 85730; 87040; 87400; 96360; 99283; 99284

== ENCOUNTER → 2018-06-14 10:54 | Outpatient (CLI) | payer MEDICARE, SELFPAY ==
--- NOTE | 2018-06-14 12:34 | DI.CT.S_ITS ---
PROCEDURE: CT SOFT TISSUE NECK W CON INDICATIONS: Restaging non hodgkins lymphoma TECHNIQUE: After the administration of intravenous contrast, 3.0 mm axial sections acquired from the sella to the aortic arch. Additional oblique axial 3.0 mm sections acquired through the pharynx. 3 mm thick coronal and sagittal reformats were generated. For radiation dose reduction, the following was used: automated exposure control. COMPARISON: [facility], CT, CT CHEST ABD PEL WO CON, 12/15/2017, 10:22. [facility], CT, CT CHEST ABD PEL W CON, 06/14/2018, 12:19. [facility], [place], PET NECK TO MID THIGH, 12/24/2017, 13:31. FINDINGS: Image quality: Excellent. Lymph nodes: No enlarged lymph nodes seen throughout the neck. There is a 5 mm superiorly within the lymph node in the right high paratracheal region, which measured 1.9 cm on 12/24/2017. Vessels: Visualized vasculature appears patent. Neck spaces: The oropharynx, nasopharynx, and pharynx demonstrate no mucosal lesions. The vocal cords, false vocal cords, pyriform sinuses, epiglottis, vallecula, and tongue base all appear normal. Extramucosal spaces appear unremarkable. Glands: The parotid and submandibular glands appear normal. Thyroid gland is enlarged and contains multiple nodules. Miscellaneous: Visualized brain and orbits appear normal. Lung apices appear clear. There is mild/moderate emphysema. Superficial soft tissues appear normal. Bones: No suspicious bony lesions. Visualized sinuses and mastoids appear unremarkable. IMPRESSION: 1. No cervical lymphadenopathy by size criteria. 2. Decreased in size of superior mediastinum lymph nodes. 3. Enlarged thyroid gland with multiple nodules. Recommend thyroid ultrasound followup. Dictated by: Maurice Deleon M.D. on 06/14/2018 at 16:54 Approved by: Maurice Deleon M.D. on 06/15/2018 at 8:06
--- NOTE | 2018-06-14 12:34 | DI.CT.S_ITS ---
PROCEDURE: CT CHEST ABD PEL W CON INDICATIONS: Restaging non hodgkins lymphoma TECHNIQUE: After the administration of oral and intravenous contrast, 5 mm thick sections acquired from the lung apices to the symphysis. 5 mm coronal and sagittal reformats were performed, with additional 7 mm coronal MIP reformats through the lungs. For radiation dose reduction, the following was used: automated exposure control, adjustment of mA and/or kV according to patient size. COMPARISON: [facility], CT, CT CHEST ABD PEL WO CON, 12/15/2017, 10:22. [facility], CT, CHEST/ABD/PEL WITHOUT CONTRAST, 11/26/2016, 9:47. [facility], CT, CHEST/ABD/PEL WITH CONTRAST, 11/20/2014, 8:44. [facility], CT, CHEST/ABD/PEL WITHOUT CONTRAST, 05/31/2014, 13:25. [facility], CT, CHEST/ABD/PEL WITH CONTRAST, 12/23/2015, 12:47. FINDINGS: Image quality: Excellent. CHEST: Lungs and pleura: No acute consolidation pleural effusion or pneumothorax. There is scattered atelectasis and scarring. 2 mm nodule in the left anterior sulcus is unchanged. No suspicious pulmonary nodule identified. Mediastinum: Heart size is mildly enlarged. No pericardial effusion. Shoddy paratracheal lymph nodes presumably treated disease. No pathologic enlargement by size criteria Thoracic aorta and central pulmonary arteries are normal in size. Scattered atherosclerotic calcifications. Esophagus is normal in caliber. No hiatal hernia. Chest wall: No axillary or supraclavicular adenopathy by size criteria. Thyroid gland demonstrates heterogeneous appearance with indeterminate nodule in the right lobe, and nonspecific calcification overall unchanged. ABDOMEN: Solid organs: Numerous hypodense lesions throughout the liver, the larger lesions compatible with cysts although some of these are technically too small to characterize. Overall, these appear stable Gallbladder negative. Biliary system is non dilated. Pancreas enhances normally. Spleen is normal in size and enhancement. No adrenal nodules. Kidneys demonstrate normal size and enhancement. There is mild prominence of the renal collecting system bilaterally in addition in the proximal ureters however findings appear grossly unchanged as the prior study. No urolithiasis seen. Peritoneum and bowel: Residual contrast material is present within the distal esophagus raising possibility of reflux or dysmotility. Bowel loops demonstrate normal wall thickness and caliber. No free fluid or air. Stomach decompressed and grossly unremarkable Nodes and vessels: Previous large retroperitoneal and mesenteric lymphadenopathy has markedly decreased/resolved. There is residual stranding seen in the retroperitoneum was presumably treated disease. Mildly enlarged lymphadenopathy in the (region on image 67 series 2 measuring 18 x 12 mm also represent treated disease or recurrence continued observation to document stable appearance or resolution. Aorta and inferior vena cava are normal in size. Miscellaneous: No ventral hernias. PELVIS: Genitourinary: Bladder grossly unremarkable Miscellaneous: No inguinal hernias or adenopathy. Bones: No suspicious bony lesions. No vertebral body compression fractures. IMPRESSION: Overall, marked interval improvement/resolution of retroperitoneal and mediastinal lymphadenopathy since 12/15/17. Residual stranding and lymphoid tissue in the retroperitoneum probably represents treated disease. There is one left para-aortic prominent lymph node measuring up to 18 mm is also probably treated disease although recommend close attention on subsequent followup examinations to ensure stability or resolution. Elsewhere, no other pathologically enlarged lymph node. Cardiomegaly. Hepatic cysts. Some of these are technically too small to characterize however demonstrate stable appearance. Dictated by: Carl Herr M.D. on 06/14/2018 at 12:57 Approved by: Carl Herr M.D. on 06/14/2018 at 13:10
== END ==
PROVIDERS: Visit Provider Internal Medicine Hematology & Oncology
DX: C85.90 Non-Hodgkin lymphoma, unspecified, unspecified site (principal); I51.7 Cardiomegaly; K76.89 Other specified diseases of liver; E04.2 Nontoxic multinodular goiter
CPT/HCPCS: 70491; 71260; 74177; Q9967

== ENCOUNTER → 2019-11-22 11:06 | Outpatient (CLI) | payer MEDICARE, OTHER, SELFPAY ==
[2019-11-22 12:47] LABS: Add Manual Diff / Slide Review NO; Basophils Absolute Auto 0 /uL (0-100); Basophils Percent Auto 0.2 % (0-2); Eosinophils Absolute Auto 100 /uL (0-450); Eosinophils Percent Auto 2.6 % (2-4); Hematocrit 36.2 % (36-46); Hemoglobin 12.6 g/dL (12.0-16.0); Lymphocytes Absolute Auto 300 /uL (1100-4500); Lymphocytes Percent Auto 6.2 % (25-40); Mean Corpuscular HGB Conc 34.9 % (30-36); Mean Corpuscular Hemoglobin 31.2 PG (26-34); Mean Corpuscular Volume 89.4 fL (80-100); Monocytes Absolute Auto 400 /uL (0-900); Monocytes Percent Auto 8.6 % (3-14); Neutrophils Absolute Auto 3900 /uL (1500-7000); Neutrophils Percent Auto 82.4 % (50-75); Platelet Count 214 X10^3/uL (150-400); Red Blood Cell Count 4.05 X10^6/uL (4.0-5.2); Red Cell Distribution Width 14.2 % (11.6-14.8); White Blood Cell Count 4.8 X10^3/uL (4.5-11.0)
[2019-11-22 13:02] LABS: Alanine Aminotransferase 27 IU/L (<35); Albumin 4.3 g/dL (3.5-5.0); Albumin Globulin Ratio 1.9 (1.0-2.8); Alkaline Phosphatase 75 U/L (38-126); Aspartate Aminotransferase 30 IU/L (14-36); BUN Creatinine Ratio 22.9 (6-22); Bilirubin Total 0.6 mg/dL (0.2-1.3); Blood Urea Nitrogen 24 mg/dL (7-17); Calcium 9.9 mg/dL (8.4-10.2); Carbon Dioxide 31 mmol/L (22-32); Chloride 104 mmol/L (98-107); Cholesterol 287 mg/dL (140-199); Estimated Glomerular Filt Rate 51.8 mL/min (>60); Globulin 2.3 g/dL (1.7-4.1); Glucose 111 mg/dL (80-110); HDL Cholesterol 29 mg/dL (40-60); HEMOLYSIS < 15 (0-50); LDL Cholesterol Calculated 195 mg/dL (<100); Magnesium 2.4 mg/dL (1.6-2.3); Potassium 4.4 mmol/L (3.4-5.1); Sodium 138 mmol/L (137-145); Total Protein 6.6 g/dL (6.3-8.2); Triglycerides 315 mg/dL (35-150)
[2019-11-22 13:08] LABS: Hemoglobin A1C% w Est Avg Glu 5.3 % (4.0-6.0)
[2019-11-22 13:35] LABS: TSH w/ Reflex to FT4 1.64 uIU/mL (0.47-4.68)
[2019-11-22 13:51] LABS: Vitamin B12 944 pg/mL (239-931)
[2019-11-22 18:10] LABS: Vitamin D 25 Hydroxy (D3) 52.3 ng/mL (30.0-100.0)
[2019-11-23 08:43] LABS: Parathyroid Hormone Int 51 pg/mL (15-65)
[2019-11-26 12:36] LABS: Metanephrine,Plasma 24.4 pg/mL (0.0-88.0)
== END ==
PROVIDERS: Family Provider Internal Medicine; PCP Physician Assistant; Referring Provider Physician Assistant; Visit Provider Physician Assistant
DX: F32.9 Major depressive disorder, single episode, unspecified (principal); I10 Essential (primary) hypertension; C85.90 Non-Hodgkin lymphoma, unspecified, unspecified site; E04.1 Nontoxic single thyroid nodule; E78.2 Mixed hyperlipidemia; E55.9 Vitamin D deficiency, unspecified; M89.9 Disorder of bone, unspecified; E53.8 Deficiency of other specified B group vitamins; R25.2 Cramp and spasm; G60.9 Hereditary and idiopathic neuropathy, unspecified; R61 Generalized hyperhidrosis
CPT/HCPCS: 36415; 80053; 80061; 82306; 82607; 83036; 83735; 83835; 83970; 84443; 85025

== ENCOUNTER → 2020-09-17 09:26 | Outpatient (CLI) | payer MEDICARE, OTHER, SELFPAY ==
[2020-09-17 10:28] LABS: COVID19 -Nasal RAPID Negative (Negative)
== END ==
PROVIDERS: Family Provider Internal Medicine; PCP Physician Assistant; Visit Provider Specialist
DX: Z20.822 Contact with and (suspected) exposure to COVID-19 (principal)
CPT/HCPCS: 87635; C9803

== ENCOUNTER 2020-09-18 08:35 | Day surgery (SDC) | payer MEDICARE, OTHER, SELFPAY ==
[2020-09-17 08:30] VITALS: BMI 33.2
[2020-09-18 08:56] VITALS: BP 173/80; PULSE 105; RESP 16; TEMP 36.8; O2SAT 98; BMI 32.1
[2020-09-18] MEDS: LACTATED RINGERS 1,000 ML 42 ML IV (09:09)
--- NOTE | 2020-09-18 09:17 | PM.HP.1 ---
History of Present Illness History of Present Illness Date Patient Seen: 09/18/20 Time Patient Seen: 09:17 Chief complaint: PORT REMOVAL Narrative: Patient is a woman who has completed chemotherapy and is here for removal of her Port-A-Cath. Patient History Medical History Anxiety Arthritis Diffuse lymphadenopathy Headache, migraine History of non-Hodgkin's lymphoma HLD (hyperlipidemia) HTN (hypertension) Low back pain Neuropathy Panic disorder Rheumatoid arthritis Surgical History H/O breast biopsy (~1985) History of appendectomy (~1966) History of surgery (03/03/18) History of thoracentesis Hx of lymph node biopsy (2017) Family & Social History Family History Mother Hypertension Stroke Brother Hodgkins lymphoma Grandmother Stroke Social History: household members spouse Tobacco & Substance use: Smoking Status Never smoker alcohol intake former Substance Use Type does not use Meds Home Medications and Allergies Home Medications Medication Instructions Recorded Confirmed Type acetaminophen 650 mg PO Q8H PRN #0 12/01/12 09/18/20 History cholecalciferol (vitamin D3) 2,000 iu PO BID #0 12/01/12 09/18/20 History [Vitamin D3] imipramine HCl [Tofranil] 50 mg PO Q DAY #0 12/01/12 09/17/20 History sertraline 100 mg PO QDAY #0 12/01/12 09/18/20 History losartan 50 mg PO BID #0 12/03/16 09/18/20 History lorazepam 0.5 mg PO BEDTIME PRN 09/17/20 09/17/20 History imipramine HCl 50 mg PO QPM 09/18/20 09/18/20 History Allergies Allergy/AdvReac Type Severity Reaction Status Date / Time amoxicillin Allergy Intermediate Rash Verified 06/09/18 17:25 Sulfa (Sulfonamide Allergy Intermediate Hives Verified 06/09/18 17:25 Antibiotics) Iodinated Contrast Media Allergy Unknown Verified 06/09/18 17:25 [Iodinated Contrast- Oral and IV Dye] Review of Systems Review of Systems Narrative: Denies any breathing issues. No heart problems. She does suffer from hypertension. No seizures or blackouts. She does have panic attacks and takes medication for it. Exam Vital Signs (past 8 hours): - 09/18/20 08:56 Temperature 98.3 F Pulse Rate 105 H Respiratory Rate 16 Blood Pressure 173/80 H Pulse Oximetry 98 Oxygen Delivery Method Room Air Narrative Exam Narrative: Lungs are clear to auscultation. No rales or rhonchi. Heart regular rate and rhythm no murmur gallop. No nodes in the neck or supraclavicular areas. Her port is on the left. No rashes of the skin. She is alert and oriented. Assessment & Plan Assessment & Plan narrative: Patient post chemotherapy for removal of port. I have discussed the procedure and rationale. Risks of bleeding and infection discussed. She may have a divot where remove the port. All questions were answered.
[2020-09-18] MEDS: CEFAZOLIN 2 GM/100 ML FROZ.PIGGY IV (09:35)
--- NOTE | 2020-09-18 09:45 | PM.PREOP ---
Pre-operative Note COVID-19 COVID-19 status: Negative Result date/Date tested (Pos, Neg/Pending): 09/17/20 Interval Note History & Physical reviewed/Exam performed by Physician: Yes Changes to H&P: No
--- NOTE | 2020-09-18 09:46 | SUR.OPER ---
Supine on padded OR bed, head on pillow, arms secured on padded arm boards at <90 degrees abduction, legs uncrossed, safety belt at thigh, tape over blanket over lower legs.
--- NOTE | 2020-09-18 10:00 | PM.OP.1 ---
Operative Date/Time/Diagnoses Date of procedure: 09/18/20 Time of procedure: 09:30 Pre-op diagnosis: Completed chemotherapy Post-op diagnosis: same Procedure & Clinicians Procedure: Removal of left infraclavicular Port-A-Cath Same procedure as scheduled: Yes Indications: No longer in need of Port-A-Cath Surgeon: Marlo Ernst Click Yes if Unassisted: Yes Anesthesia Type: General Operative Notes Findings: Port removed intact Closure Type: primary Estimated Blood Loss (mL): 5 Blood products transfused: none Procedure in detail: Patient was placed supine underwent general LMA anesthesia. She was prepped and draped in the usual fashion. Incision was made through the old scar and carried down to the level of the port. The port was excised in its entirety. A pursestring had been placed around the catheter had entrance into the subQ. Once the catheter was removed this was cinched down to prevent any back bleeding. The subQ was closed with interrupted 3-0 Vicryl and skin was closed with 4-0 Vicryl subcuticular stitches. Dressing was applied the patient was awakened extubated and taken the recovery area in good condition. Complications: none Post-operative Condition: stable Disposition: PACU
[2020-09-18] MEDS: BUPIVACAINE 0.5% (PF) VIAL 30 ML INJ (10:09)
[2020-09-18 10:36] VITALS: BP 158/80; PULSE 92; RESP 18; TEMP 36.2; O2SAT 99
[2020-09-18 10:41] VITALS: BP 144/62; PULSE 91; RESP 14; O2SAT 98
[2020-09-18 10:46] VITALS: BP 109/86; PULSE 88; RESP 12; O2SAT 98
[2020-09-18 10:51] VITALS: BP 126/92; PULSE 87; RESP 12; TEMP 36.4; O2SAT 99
[2020-09-18 10:54] VITALS: BP 157/83; PULSE 92; RESP 16; TEMP 36.3; O2SAT 98
--- NOTE | 2020-09-18 15:29 | SUR.PHASEII ---
Late entry: 1114: pt ready to go, dressing c/d/i, po fluids tolerated. Left when ready and in stable condition.
== END 2020-09-18 11:14 | disposition home or self-care (01) ==
PROVIDERS: Family Provider Internal Medicine; PCP Physician Assistant; Referring Provider Specialist; Visit Provider Specialist
PROC: (CPT 36590; principal; 2020-09-18 09:45)
DX: Z45.2 Encounter for adjustment and management of vascular access device (principal); C82.90 Follicular lymphoma, unspecified, unspecified site; I10 Essential (primary) hypertension; E78.5 Hyperlipidemia, unspecified; F41.0 Panic disorder [episodic paroxysmal anxiety]
CPT/HCPCS: 36590; 82962; J0690; J2250; J2704; J3010

== ENCOUNTER → 2021-01-29 15:05 | Outpatient (CLI) | payer MEDICARE, OTHER, SELFPAY ==
--- NOTE | 2021-01-29 | DI.MG.S_ITS ---
BILATERAL DIGITAL SCREENING MAMMOGRAM 3D/2D WITH CAD: 01/29/2021 CLINICAL: Routine screening. Comparison is made to exams dated: 07/12/2017 mammogram, 07/13/2007 mammogram, and 12/22/2005 mammogram - [facility]. There are scattered fibroglandular elements in both breasts. Current study was also evaluated with a Computer Aided Detection (CAD) system. There is a 1.4 cm round asymmetry in the left breast at 6 o'clock anterior depth. This is increased in size. No other significant masses, calcifications, or other findings are seen in either breast. IMPRESSION: INCOMPLETE: NEEDS ADDITIONAL IMAGING EVALUATION The 1.4 cm round asymmetry in the left breast is larger compared to the prior mammogram in 2018 and resembles a cyst but is indeterminate. Additional views with ultrasound are recommended. Follow-up with ACR/ACS guidelines. This exam was interpreted at Station ID: [id number]. NOTE: For mammograms, a report in lay terms will be sent to the patient. Approximately 15% of breast malignancies will not be visualized mammographically. In the management of a palpable breast mass, a negative mammogram must not discourage biopsy of a clinically suspicious lesion. Electronically Signed By: Renaldo Wolf acr/:01/29/2021 16:43:37 letter sent: Additional Imaging Needed ACR BI-RADS Category 0: Incomplete 3340F
--- NOTE | 2021-01-29 | DI.RAD.S_ITS ---
PROCEDURE: XR DEXA AXIAL SKELETON INDICATIONS: ROUTINE SCREENING COMPARISON: None. FINDINGS: This blank DEXA report has been sent in error by the PACS system. The correct and complete report will be forthcoming in 1-2 days. Thank you for your patience and understanding. Dictated by: Jesusita Dominique MD, PhD on 01/30/2021 at 8:37 Approved by: Jesusita Dominique MD, PhD on 01/30/2021 at 8:37
== END ==
PROVIDERS: Family Provider Internal Medicine; PCP Physician Assistant; Referring Provider Physician Assistant; Visit Provider Physician Assistant
DX: Z13.820 Encounter for screening for osteoporosis (principal); Z12.31 Encounter for screening mammogram for malignant neoplasm of breast; Z78.0 Asymptomatic menopausal state; M06.09 Rheumatoid arthritis without rheumatoid factor, multiple sites
CPT/HCPCS: 77063; 77067; 77080

== ENCOUNTER → 2021-02-21 12:17 | Outpatient (CLI) | payer MEDICARE, OTHER, SELFPAY ==
--- NOTE | 2021-02-21 | DI.US.S_ITS ---
ULTRASOUND OF LEFT BREAST: 02/21/2021 CLINICAL: Patient returns today to evaluate a focal asymmetry in the left breast. Comparison is made to exams dated: 02/21/2021 mammogram, 07/12/2017 mammogram, 01/29/2021 mammogram, 07/13/2007 mammogram, and 12/22/2005 mammogram - [facility]. Color flow and real-time ultrasound of the left breast were performed. Alamo scale images of the real-time examination were reviewed. There is a 1.3 cm x 0.9 cm x 1.3 cm oval complicated cyst with thin smooth internal rivera in the left breast at 4 o'clock anterior depth 3 cm from the nipple. This oval complicated cyst is hypoechoic with a well-defined boundary, internal echoes, and posterior acoustic enhancement. This correlates with mammography findings. Color flow imaging demonstrates that there is no vascularity present. A smaller complicated cyst with internal echoes and no vascularity is noted immediately adjacent to this cyst measuring 0.4 x 0.3 x 0.4 cm at the 4 o'clock 3cm from the nipple. IMPRESSION: PROBABLY BENIGN The 1.3 cm x 0.9 cm x 1.3 cm oval complicated cyst in the left breast most likely is a complicated cyst and is probably benign. A follow-up left ultrasound in 6 months is recommended to demonstrate stability. Findings and recommendations were conveyed to the patient during today's evaluation. This exam was interpreted at Station ID: [id number]. Electronically Signed By: Gabe Baeza M.D. aty/:02/21/2021 15:10:22 letter sent: Followup Recommended Ultrasound BI-RADS: 3 Probably benign
--- NOTE | 2021-02-21 | DI.MG.S_ITS ---
UNILATERAL LEFT DIGITAL DIAGNOSTIC MAMMOGRAM 3D/2D WITH ADDITIONAL VIEWS: 02/21/2021 CLINICAL: Additional evaluation requested from prior study. Comparison is made to exams dated: 01/29/2021 mammogram and 07/12/2017 mammogram - [facility]. There are scattered fibroglandular elements in left breast. There is a 1.3 cm oval equal density mass in the left breast at 5 o'clock anterior depth. This is confirmed in today's additional views. No other significant masses or calcifications are seen in the breast. IMPRESSION: INCOMPLETE: NEEDS ADDITIONAL IMAGING EVALUATION The 1.3 cm oval equal density mass in the left breast resembles a cyst and is indeterminate. An ultrasound is recommended for further evaluation and is scheduled to immediately follow this examination. This exam was interpreted at Station ID: [id number]. NOTE: For mammograms, a report in lay terms will be sent to the patient. Approximately 15% of breast malignancies will not be visualized mammographically. In the management of a palpable breast mass, a negative mammogram must not discourage biopsy of a clinically suspicious lesion. Electronically Signed By: Gabe Baeza M.D. aty/:02/21/2021 13:28:37 ACR BI-RADS Category 0: Incomplete 3340F
== END ==
PROVIDERS: Family Provider Internal Medicine; PCP Physician Assistant; Referring Provider Physician Assistant; Visit Provider Physician Assistant
DX: R92.8 Other abnormal and inconclusive findings on diagnostic imaging of breast (principal); N60.02 Solitary cyst of left breast
CPT/HCPCS: 76642; 77065; G0279

== ENCOUNTER → 2021-04-01 09:53 | Outpatient (CLI) | payer MEDICARE, OTHER, SELFPAY ==
--- NOTE | 2021-04-01 09:54 | DI.CT.S_ITS ---
PROCEDURE: CT CHEST ABD PEL WO CON INDICATIONS: follicular lymphoma TECHNIQUE: After the administration of oral contrast, 5 mm thick sections acquired from the lung apices to the symphysis pubis. 5 mm thick coronal and sagittal reformats acquired, with additional 7 mm coronal MIP reformats through the lungs. For radiation dose reduction, the following was used: automated exposure control, adjustment of mA and/or kV according to patient size. COMPARISON: [facility], CT, CT SOFT TISSUE NECK WO CON, 04/01/2021, 10:56. [facility], [place], PET NECK TO MID THIGH, 08/17/2018, 14:05. CT, CT SOFT TISSUE NECK W CON, 06/14/2018, 12:19. CT, CT CHEST ABD PEL W CON, 06/14/2018, 12:19. [facility], CT, CT CHEST ABD PEL WO CON, 12/15/2017, 10:22. FINDINGS: Image quality: Excellent. CHEST: Lungs and pleura: No acute pulmonary opacities. No pleural effusions or pneumothorax. Central and peripheral airways are patent are normal in caliber. 2 mm nodule in the left anterior upper lobe series 3, image 194 is unchanged. Mediastinum: Heart size is normal. No pericardial effusion. No mediastinal adenopathy by CT size criteria. Thoracic aorta and central pulmonary arteries are normal in size. Esophagus is normal in caliber. No hiatal hernia. Chest wall: No axillary or supraclavicular adenopathy by size criteria. Thyroid gland demonstrates areas of low attenuation calcification, unchanged. ABDOMEN: Solid organs: Liver is enlarged with steatosis. Numerous hepatic hypointensities are unchanged in size and number. Gallbladder is unremarkable. Pancreas is normal in contours. Spleen is normal in size. No adrenal nodules. Both kidneys are normal in size, without hydronephrosis or nephrolithiasis. Peritoneum and bowel: Small and large bowel loops are normal in caliber and wall thickness. No free fluid or air. Nodes and vessels: Previously identified left periaortic lymph node on series 2, image 71 measures 2.8 x 2.8 cm, increased from PET scan on 08/17/2018 at which time it measured 2.0 x 2.1 cm. Inferior to this focus are strandy areas of nodular soft tissue density, ill-defined and somewhat less prominent when compared to 2019. No new areas of adenopathy are identified. Aorta and inferior vena cava are normal in size. Miscellaneous: No ventral hernias. PELVIS: Genitourinary: Bladder wall thickness is normal. Miscellaneous: No inguinal hernias or adenopathy. Bones: No suspicious bony lesions. No vertebral body compression fractures. IMPRESSION: 1. Left periaortic lymph node has increased in size compared to 2019, which is the most recent prior exam. This is concerning for disease progression. No new areas of adenopathy are identified. 2. Strandy area of nodularity inferior to the enlarged periaortic lymph node as above is slightly less prominent when compared to 2019. 3. Unchanged 2 mm left upper lobe nodule. Dictated by: Leticia Gastelum M.D. on 04/01/2021 at 14:28 Approved by: Leticia Gastelum M.D. on 04/01/2021 at 15:34
--- NOTE | 2021-04-01 10:37 | DI.CT.S_ITS ---
PROCEDURE: CT SOFT TISSUE NECK WO CON INDICATIONS: Follicular lymphoma TECHNIQUE: Non-contrast 3.0 mm axial sections acquired from the sella to the aortic arch. Additional oblique axial 3.0 mm sections acquired through the pharynx. 3 mm thick coronal and sagittal reformats were generated. For radiation dose reduction, the following was used: automated exposure control. COMPARISON: [facility], [place], PET NECK TO MID THIGH, 08/17/2018, 14:05. [facility], CT, CT CHEST ABD PEL WO CON, 04/01/2021, 10:56. [facility], CT, CT SOFT TISSUE NECK W CON, 06/14/2018, 12:19. FINDINGS: Image quality: Excellent. Lymph nodes: No enlarged lymph nodes seen throughout the neck. Neck spaces: The oropharynx, nasopharynx, and pharynx demonstrate no mucosal lesions. The vocal cords, false vocal cords, pyriform sinuses, epiglottis, vallecula, and tongue base all appear normal. Extramucosal spaces appear unremarkable. Glands: No unenhanced evidence of parotid or submandibular gland mass. Thyroid gland is enlarged and multinodular as seen on the prior study. IMPRESSION: No evidence of lymphadenopathy. Dictated by: Moises Elder M.D. on 04/01/2021 at 15:09 Approved by: Moises Elder M.D. on 04/01/2021 at 15:15
== END ==
PROVIDERS: Family Provider Internal Medicine; PCP Physician Assistant; Referring Provider Internal Medicine Hematology & Oncology; Visit Provider Internal Medicine Hematology & Oncology
DX: C85.90 Non-Hodgkin lymphoma, unspecified, unspecified site (principal); R59.0 Localized enlarged lymph nodes
CPT/HCPCS: 70490; 71250; 74176

== ENCOUNTER → 2021-05-31 10:01 | Outpatient (CLI) | payer MEDICARE, OTHER, SELFPAY ==
[2021-05-31 11:41] LABS: Appearance Urine UA CLEAR; Bilirubin Urine UA NEGATIVE (NEGATIVE); Color Urine UA YELLOW; Glucose Urine UA NEGATIVE (Negative); Ketones Urine UA NEGATIVE (NEGATIVE); Leukocyte Esterase Urine UA NEGATIVE (NEGATIVE); Nitrite Urine UA NEGATIVE (Negative); Occult Blood Urine UA NEGATIVE (Negative); Protein Urine UA NEGATIVE (Negative); Specific Gravity Urine UA <=1.005 (1.000-1.035); Urobilinogen Urine UA 0.2 E.U./dL (0.2)
[2021-05-31 11:42] LABS: Hematocrit 34.2 % (36-46); Hemoglobin 11.7 g/dL (12.0-16.0)
[2021-05-31 11:51] LABS: Bacteria Urine Occasional (0-1); Culture Indicated Urine Cult Not Indicated; RBC Urine 0-1/HPF (0-5/HPF); Squamous Epithelial Cell Urine 0-1 /HPF (0-5/HPF); Transitional Epi Cells Urine 1-5/HPF (0-5/HPF); WBC Urine 1-5/HPF (0-5/HPF)
[2021-05-31 12:04] LABS: BUN Creatinine Ratio 17.5 (6-22); Blood Urea Nitrogen 21 mg/dL (7-17); Calcium 9.9 mg/dL (8.4-10.2); Carbon Dioxide 32 mmol/L (22-32); Chloride 102 mmol/L (98-107); Estimated Glomerular Filt Rate 44.2 mL/min (>60); Glucose 91 mg/dL (80-110); HEMOLYSIS < 15 (0-50); Magnesium 2.4 mg/dL (1.6-2.3); Phosphorous 3.1 mg/dL (2.8-4.1); Potassium 5.1 mmol/L (3.4-5.1); Sodium 137 mmol/L (137-145)
[2021-05-31 12:05] LABS: Creatinine Urine Random 17.7 mg/dL; Protein (Total) Urine Random 12 mg/dL (0-12); Protein Creatinine Ratio Urine 0.67 GRAM/24H
[2021-05-31 12:18] LABS: Vitamin D 25 Hydroxy (D3) 53.3 ng/mL (30.0-100.0)
[2021-06-01 10:00] LABS: Parathyroid Hormone Int 70 pg/mL (15-65)
[2021-06-03 13:59] LABS: Albumin 3.9 g/dL (2.9-4.4); Alpha-1-Globulin 0.2 g/dL (0.0-0.4); Alpha-2-Globulin 0.7 g/dL (0.4-1.0); Gamma Globulin 0.4 g/dL (0.4-1.8); Globulin Total 2.2 g/dL (2.2-3.9); M-Spike % Not Observed % (Not Observed); Protein, Total 6.1 g/dL (6.0-8.5)
== END ==
PROVIDERS: Family Provider Internal Medicine; PCP Physician Assistant; Referring Provider Student in an Organized Health Care Education/Training Program; Visit Provider Student in an Organized Health Care Education/Training Program
DX: N25.81 Secondary hyperparathyroidism of renal origin (principal); N05.9 Unspecified nephritic syndrome with unspecified morphologic changes; D64.9 Anemia, unspecified; E83.40 Disorders of magnesium metabolism, unspecified; E83.30 Disorder of phosphorus metabolism, unspecified; D47.2 Monoclonal gammopathy; N30.00 Acute cystitis without hematuria; R80.9 Proteinuria, unspecified
CPT/HCPCS: 36415; 80048; 81001; 82306; 82570; 83735; 83970; 84100; 84155; 84156; 84165; 84166; 85014; 85018

== ENCOUNTER → 2021-10-22 10:17 | Outpatient (CLI) | payer MEDICARE, OTHER, SELFPAY ==
[2021-10-22 12:34] LABS: Hematocrit 34.5 % (36-46); Hemoglobin 12.1 g/dL (12.0-16.0)
[2021-10-22 12:55] LABS: Blood Urea Nitrogen 37 mg/dL (7-17); Calcium 9.9 mg/dL (8.4-10.2); Carbon Dioxide 29 mmol/L (22-32); Chloride 102 mmol/L (98-107); Estimated Glomerular Filt Rate 25 mL/min (>60); Glucose 81 mg/dL (80-110); HEMOLYSIS < 15 (0-50); Potassium 4.8 mmol/L (3.4-5.1); Sodium 138 mmol/L (137-145)
[2021-10-22 16:54] LABS: Creatinine Urine Random 48.9 mg/dL; Protein (Total) Urine Random 8 mg/dL (0-12); Protein Creatinine Ratio Urine 0.16 GRAM/24H
[2021-10-23 06:18] LABS: Parathyroid Hormone Int 63 pg/mL (15-65)
== END ==
PROVIDERS: Family Provider Internal Medicine; PCP Physician Assistant; Referring Provider Student in an Organized Health Care Education/Training Program; Visit Provider Student in an Organized Health Care Education/Training Program
DX: N05.9 Unspecified nephritic syndrome with unspecified morphologic changes (principal); D64.9 Anemia, unspecified; N25.81 Secondary hyperparathyroidism of renal origin; R80.9 Proteinuria, unspecified
CPT/HCPCS: 36415; 80048; 82570; 83970; 84156; 85014; 85018

== ENCOUNTER → 2021-10-28 12:28 | Outpatient (CLI) | payer MEDICARE, OTHER, SELFPAY ==
[2021-10-28 14:36] LABS: BUN Creatinine Ratio 17.6 (6-22); Blood Urea Nitrogen 35 mg/dL (7-17); Calcium 9.5 mg/dL (8.4-10.2); Carbon Dioxide 27 mmol/L (22-32); Chloride 103 mmol/L (98-107); Estimated Glomerular Filt Rate 26 mL/min (>60); Glucose 92 mg/dL (80-110); HEMOLYSIS < 15 (0-50); Potassium 4.2 mmol/L (3.4-5.1); Sodium 139 mmol/L (137-145)
== END ==
PROVIDERS: Family Provider Internal Medicine; PCP Physician Assistant; Referring Provider Student in an Organized Health Care Education/Training Program; Visit Provider Student in an Organized Health Care Education/Training Program
DX: N05.9 Unspecified nephritic syndrome with unspecified morphologic changes (principal)
CPT/HCPCS: 36415; 80048

== ENCOUNTER → 2021-10-30 07:59 | Outpatient (CLI) | payer MEDICARE, OTHER, SELFPAY ==
[2021-10-30 09:05] LABS: Appearance Urine UA CLEAR; Bilirubin Urine UA NEGATIVE (NEGATIVE); Color Urine UA YELLOW; Glucose Urine UA NEGATIVE (Negative); Ketones Urine UA NEGATIVE (NEGATIVE); Leukocyte Esterase Urine UA NEGATIVE (NEGATIVE); Nitrite Urine UA NEGATIVE (Negative); Occult Blood Urine UA NEGATIVE (Negative); Protein Urine UA NEGATIVE (Negative); Urobilinogen Urine UA 0.2 E.U./dL (0.2)
[2021-10-30 09:21] LABS: Amorphous Sediment Urine 1+; Bacteria Urine None Seen; Culture Indicated Urine Cult Not Indicated; RBC Urine None Seen (0-5/HPF); WBC Urine None Seen (0-5/HPF)
[2021-10-30 15:47] LABS: Hepatitis B Surface Antigen NEGATIVE s/c (NEGATIVE)
[2021-10-30 15:57] LABS: Hep C Virus Ab w/Reflex Quant NEGATIVE s/c (NEGATIVE)
[2021-10-30 23:49] LABS: Hepatitis B Core Antibody Negative (Negative)
[2021-10-31 05:22] LABS: Complement C3 128 mg/dL (82-167)
[2021-10-31 08:28] LABS: Hepatitis B Surf Ab Qualitativ Non Reactive (.)
[2021-10-31 13:04] LABS: Free Kappa Lt Chains, Serum 13.7 mg/L (3.3-19.4); Free Lambda Lt Chains,Serum 8.2 mg/L (5.7-26.3)
[2021-10-31 16:03] LABS: DNA (DS) Antibody <1 IU/mL (0-9)
[2021-10-31 16:07] LABS: Albumin 3.8 g/dL (2.9-4.4); Alpha-1-Globulin 0.2 g/dL (0.0-0.4); Alpha-2-Globulin 0.8 g/dL (0.4-1.0); Gamma Globulin 0.3 g/dL (0.4-1.8); Globulin Total 2.2 g/dL (2.2-3.9)
[2021-11-01 17:54] LABS: ANA Screen, IFA Negative (.)
[2021-11-04 13:09] LABS: Cytoplasmic C-ANCA <1:20 titer (Neg:<1:20); Perinuclear P-ANCA <1:20 titer (Neg:<1:20)
[2021-11-07 11:10] LABS: Alpha-1 Globulin, Ur 8.3 % (.); Beta Globulin, Ur 28.4 % (.); Gamma Globulin, Ur 17.4 % (.); M-Spike % Not Observed % (Not Observed); Urine Total Protein 7.2 mg/dL (Not Estab.)
== END ==
PROVIDERS: Family Provider Internal Medicine; PCP Physician Assistant; Referring Provider Student in an Organized Health Care Education/Training Program; Visit Provider Student in an Organized Health Care Education/Training Program
DX: L93.2 Other local lupus erythematosus (principal); M31.30 Wegener's granulomatosis without renal involvement; M32.10 Systemic lupus erythematosus, organ or system involvement unspecified; N00.9 Acute nephritic syndrome with unspecified morphologic changes; D89.89 Other specified disorders involving the immune mechanism, not elsewhere classified; B19.10 Unspecified viral hepatitis B without hepatic coma; B17.10 Acute hepatitis C without hepatic coma; R80.9 Proteinuria, unspecified; D47.2 Monoclonal gammopathy; N30.00 Acute cystitis without hematuria
CPT/HCPCS: 36415; 81001; 83516; 83883; 84155; 84156; 84165; 84166; 86038; 86160; 86225; 86256; 86335; 86704; 86706; 86803; 87340

== ENCOUNTER → 2021-11-10 10:37 | Outpatient (CLI) | payer MEDICARE, OTHER, SELFPAY ==
[2021-11-10 11:59] LABS: Creatinine Urine Random 75.2 mg/dL; Protein (Total) Urine Random 9 mg/dL (0-12); Protein Creatinine Ratio Urine 0.11 GRAM/24H
[2021-11-10 12:31] LABS: Hematocrit 31.4 % (36-46)
[2021-11-10 12:43] LABS: BUN Creatinine Ratio 21.6 (6-22); Blood Urea Nitrogen 43 mg/dL (7-17); Calcium 9.8 mg/dL (8.4-10.2); Carbon Dioxide 26 mmol/L (22-32); Chloride 96 mmol/L (98-107); Estimated Glomerular Filt Rate 26 mL/min (>60); Glucose 86 mg/dL (80-110); HEMOLYSIS < 15 (0-50); Potassium 5.1 mmol/L (3.4-5.1); Sodium 132 mmol/L (137-145)
[2021-11-11 07:38] LABS: Parathyroid Hormone Int 47 pg/mL (15-65)
== END ==
PROVIDERS: Family Provider Internal Medicine; PCP Physician Assistant; Referring Provider Student in an Organized Health Care Education/Training Program; Visit Provider Student in an Organized Health Care Education/Training Program
DX: N05.9 Unspecified nephritic syndrome with unspecified morphologic changes (principal); R80.9 Proteinuria, unspecified; D64.9 Anemia, unspecified; N25.81 Secondary hyperparathyroidism of renal origin
CPT/HCPCS: 36415; 80048; 82570; 83970; 84156; 85014; 85018

== ENCOUNTER → 2021-11-20 17:04 | Outpatient (CLI) | payer MEDICARE, OTHER, SELFPAY ==
--- NOTE | 2021-11-20 17:08 | DI.MRI.S_ITS ---
PROCEDURE: MR ABDOMEN WO/W CON INDICATIONS: Renal Mass TECHNIQUE: Coronal HASTE through abdomen and pelvis; axial 2D FLASH in- and [id number] (with and without fat saturation), and breath-hold T2 FSE from the hepatic dome to the bottom of the kidneys. Coronal HASTE MR urogram of kidneys and bladder. Dynamic coronal VIBE during IV gadolinium administration; postgadolinium axial VIBE or 2D FLASH with fat saturation from the hepatic dome through the kidneys. COMPARISON: [facility] Ul[facility]ound, US, US RENAL COMPLETE, 11/03/2021, 15:09. [facility], CT, CT CHEST ABD PEL WO CON, 04/01/2021, 10:56. FINDINGS: Image quality: Excellent. Genitourinary system: Severe left hydronephrosis similar to possibly worse compared to the prior ultrasound. Proximal ureter is nondilated, but compressed by retroperitoneal mass. There is a delayed left nephrogram. No suspicious enhancing renal masses. Other solid organs: The liver contains several cysts as seen on prior CT, but also demonstrates new minimally increased signal masses on T2 imaging in both lobes of the liver. Largest is in segment II anteriorly measuring 6.1 cm. The largest in the right hepatic lobe is exophytic along the inferior margin and measures 4.7 cm. Other masses are located in segment IV B adjacent to the gallbladder, and in segment VII near the liver dome. Gallbladder, biliary tree, and pancreas appear normal. The spleen is normal size. There is a hypoenhancing 5 mm cystic structure centrally. There are two new left adrenal masses, one in the body measuring 1.9 cm, and one in the lateral limb measuring 1.9 cm. The right adrenal gland is normal. Nodes and vessels: There has been significant progression of bulky retroperitoneal adenopathy since the prior CT scan in March 2021. There is a lymph node at the GE junction, and confluent adenopathy in the periaortic region anteriorly displacing and compressing the inferior vena cava. More caudally, the mass compresses the left ureter. The abdominal aorta remains normal caliber. The left renal vein is quite attenuated, not definitely seen in its entirety. The splenic vein appears probably patent. Several mildly enlarged mesenteric lymph nodes. Bowel and peritoneum: The visible portions of stomach and bowel appear within normal limits. There is trace fluid in both pericolic gutters. Lung bases: No basal effusions. No hiatal hernia. Heart size is normal. Incidental note of small cyst in the lower left breast. Bones and soft tissues: Normal marrow signal. No suspicious enhancement. No visible soft tissue abnormalities. IMPRESSION: 1. Bulky retroperitoneal adenopathy causing left ureteral obstruction, severe left hydronephrosis, and slight delay of left renal function. 2. Significant progression of disease compared to the prior CT scan from March 2021, now including multiple liver lesions and left adrenal masses. 3. Report alert called to the office of Dr. Galdamez. Dictated by: Alicia Campos M.D. on 11/21/2021 at 10:14 Approved by: Alicia Campos M.D. on 11/21/2021 at 10:40
== END ==
PROVIDERS: Family Provider Internal Medicine; PCP Physician Assistant; Referring Provider Specialist; Visit Provider Specialist
DX: N17.9 Acute kidney failure, unspecified (principal); N18.9 Chronic kidney disease, unspecified; N28.89 Other specified disorders of kidney and ureter; N13.1 Hydronephrosis with ureteral stricture, not elsewhere classified; E27.9 Disorder of adrenal gland, unspecified; K76.89 Other specified diseases of liver; R59.0 Localized enlarged lymph nodes; Z95.828 Presence of other vascular implants and grafts
CPT/HCPCS: 74183; A9579

== ENCOUNTER → 2021-11-25 09:10 | Outpatient (CLI) | payer MEDICARE, OTHER, SELFPAY ==
--- NOTE | 2021-11-25 09:11 | DI.NM.S_ITS ---
PROCEDURE: NM RENAL FUNCTION W LASIX RADIOPHARMACEUTICAL: 10.7 mCi Tc-99m MAG3 IV and 40 mg furosemide IV. INDICATIONS: hydronephrosis and renal mass TECHNIQUE: The patient was hydrated orally before the examination was begun. After intravenous administration of Tc-99m MAG3, posterior abdominal radionuclide angiogram and sequential (1 minute each frame) renal images were obtained. A time-activity curve for each kidney was generated and analyzed. To evaluate for obstruction, the patient was given 40 mg furosemide via slow intravenous injection after the start of the examination. Sequential images were obtained for up to an additional 20 minutes. COMPARISON: [facility], CT, CT CHEST ABD PEL WO CON, 12/15/2017, 10:22. [facility], [place], PET NECK TO MID THIGH, 08/17/2018, 14:05. [facility], CT, CT CHEST ABD PEL WO CON, 04/01/2021, 10:56. [facility]ound, US, US RENAL COMPLETE, 11/03/2021, 15:09. FINDINGS: Perfusion: There is normal vascular flow to both kidneys. Morphology: Both kidneys are normal in size and shape. There is photopenia in the left renal pelvis consistent with dilated left collecting system. No dilated right renal collecting system. The right ureter and bladder fill with tracer, and appear normal. The left ureter is not visualized. Function: Right kidney demonstrates normal cortical tracer uptake, with [id number] activity ranging from 3 to 5 minutes. Left kidney demonstrates delayed cortical uptake and creation. The right kidney contributes 73.2% of total renal function. The left kidney contributes 26.8% of total renal function. Lasix stimulation: After diuretic administration, there is normal clearance of tracer activity from the renal collecting system in right kidney. The half-time of emptying of tracer activity from the right pelvicaliceal system is 12.9 minutes. The half-time of emptying from the left pelvicaliceal system is >20 minutes. There is tracer accumulation in the left renal collecting system to assess left inner clearance from the left renal pelvis. Normal emptying half-times are less than 10 minutes; borderline ranges are from 10 to 20 minutes. IMPRESSION: 1. Obstructed left kidney with significantly decreased left renal function. Because of lack of excreted activity in the left renal pelvis, the T1/2 of left kidney cannot be calculated. 2. Normal right renal function. 3. Right kidney contributes 73.2% of total renal function. Left kidney contributes 26.8% of total renal function. Dictated by: Maurice Deleon M.D. on 11/25/2021 at 12:40 Approved by: Maurice Deleon M.D. on 11/25/2021 at 12:55
== END ==
PROVIDERS: Family Provider Internal Medicine; PCP Physician Assistant; Referring Provider Specialist; Visit Provider Specialist
DX: N17.9 Acute kidney failure, unspecified (principal); N18.30 Chronic kidney disease, stage 3 unspecified; N13.30 Unspecified hydronephrosis; N28.89 Other specified disorders of kidney and ureter
CPT/HCPCS: 78708; 81002; 99215; A9562

== ENCOUNTER 2021-11-27 15:21 | Day surgery (SDC) | payer MEDICARE, OTHER, SELFPAY ==
--- NOTE | 2021-11-27 | DI.RAD.S_ITS ---
PROCEDURE: XR ABDOMEN 1V INDICATIONS: LEFT STENT PLACEMENT TECHNIQUE: 1 fluoroscopic view of the abdomen acquired. COMPARISON: [facility], MR, MR ABDOMEN WO/W CON, 11/20/2021, 17:50. FINDINGS: Left ureteral stent projects in the region of the left renal pelvis. Contrast in the renal pelvis. IMPRESSION: Intraoperative guidance provided. Dictated by: Nicanor Hendricks M.D. on 11/27/2021 at 20:58 Approved by: Nicanor Hendricks M.D. on 11/27/2021 at 20:58
[2021-11-27 16:05] LABS: COVID19 -Nasal RAPID Negative (Negative)
[2021-11-27 17:02] VITALS: BP 180/92; PULSE 86; RESP 16; TEMP 36.4; O2SAT 96
[2021-11-27 17:05] VITALS: BP 180/92; PULSE 86; RESP 12; TEMP 36.3; O2SAT 96; BMI 30.8
[2021-11-27] MEDS: LACTATED RINGERS 1,000 ML 42 ML IV (17:19)
[2021-11-27] MEDS: CIPROFLOXACIN 400 MG/200 ML PIGGYBACK 200 MG IV (18:00)
--- NOTE | 2021-11-27 18:03 | PM.PREOP ---
Pre-operative Note COVID-19 Criteria for continued procedure: Expected advancement of disease process, Possibility delay results in more complex future surgery or treatment, Increased loss of function, Continuing or worsening of significant or severe pain, Deterioration of the patient's condition or overall health, Delay expected to result in less-positive ultimate med/surg outcome and Non-surgical alternatives not available or appropriate per current SOC Interval Note History & Physical reviewed/Exam performed by Physician: Yes Changes to H&P: Yes H&P completed within 30 days and has changed as indicated here:: Interval MAG 3 lasix renogram demonstrating high grade left renal obstruction. Interval consult to Medical oncology for opinion and treatment of probable recurrent lymphoma.
--- NOTE | 2021-11-27 18:34 | SUR.OPER ---
Lithotomy on padded OR bed, head on pillow, arms secured on padded arm boards at <90 degrees abduction. Legs secured in padded yellow fins stirrups.
[2021-11-27] MEDS: BELLADONNA/OPIUM SUPPOSITORIES 1 EACH PR (18:40)
[2021-11-27] MEDS: IOPAMIDOL 50 ML VIAL INJ (18:40)
--- NOTE | 2021-11-27 18:43 | P.OP_ITS ---
Operative Date/Time/Diagnoses Date of procedure: 11/27/21 Time of procedure: 18:43 Pre-op diagnosis: Left ureteral obstruction Post-op diagnosis: same Procedure & Clinicians Procedure: 1. Cystoscopy/left retrograde pyelogram. 2. Cystoscopy/placement left ureteral stent (8 [place] Islander by 22-32 cm multi-length). Same procedure as scheduled: Yes Indications: 1. High-grade, extrinsic left ureteral obstruction. 2. Acute kidney injury. 3. CKD. Surgeon: Moira Galdamez Click Yes if Unassisted: Yes Anesthesia Type: General Operative Notes Findings: 1. Urethral-moderate size caruncle without thrombosis or active bleeding. Urethral meatus otherwise has normal caliber and course. 2. Bladder-normal urothelium throughout. Normal ureteral orifices bilaterally. Clear efflux seen from the right. 3. Left collecting system-moderately severe dilation of the left renal pelvis. Once the length of the ureter was transit ended with the Conrad catheter, and then subsequently the [place] Islander ureteral catheter a brisk, clear obstructive diuresis was observed. Closure Type: not applicable Specimen(s): none sent Applied: other (Eight [place] Islander by 22-32 cm multi-length stent) Estimated Blood Loss (mL): 0 Blood products transfused: none Procedure in detail: Patient was positioned supine was administered general anesthesia. She was then repositioned semi lithotomy and the lower abdomen, genitalia, and groin were then prepped and draped in sterile fashion. The 22 [place]er panendoscope was then passed the lower urinary tract with the findings as described above. A 5 [place]er pollock catheter was then passed through the working channel of the panendoscope. Now, through the Conrad catheter was then advanced under direct and fluoroscopic guidance into the left collecting system. The Conrad catheter was then advanced over the hybrid guidewire under fluoroscopic guidance the level of the renal collecting system. The hybrid guidewire was temporarily backloaded off the Conrad catheter. A retrograde pyelogram was then performed with the findings as described above. The hybrid guidewire was then advanced again through the lumen of the Conrad catheter advanced proximally under fluoroscopic guidance. Conrad catheter was then backloaded off the hybrid guidewire. Now an 8 [place]er by 22-32 cm multi- length stent was selected and this was advanced over hybrid guidewire under direct and fluoroscopic guidance. It was positioned satisfactorily in the left collecting system with the findings as described above. NO RETRIEVAL LINE WAS LEFT ATTACHED. The bladder is then drained completely and all instrumentation was removed. The patient was then repositioned in supine, was awakened, [facility] then transported to PACU in stable condition. Complications: none Post-operative Condition: stable Disposition: PACU Plan for aftercare: Discharge home.
[2021-11-27 18:49] VITALS: BP 171/77; PULSE 889; RESP 14; TEMP 37.4; O2SAT 99
[2021-11-27 18:54] VITALS: BP 155/68; PULSE 85; RESP 10; O2SAT 98
[2021-11-27 18:59] VITALS: BP 175/79; PULSE 84; RESP 26; TEMP 36.5; O2SAT 97
== END 2021-11-27 19:08 | disposition home or self-care (01) ==
PROVIDERS: Family Provider Internal Medicine; PCP Physician Assistant; Referring Provider Specialist; Visit Provider Specialist
PROC: (CPT 52332; principal; 2021-11-27 17:00)
DX: N13.5 Crossing vessel and stricture of ureter without hydronephrosis (principal); C85.90 Non-Hodgkin lymphoma, unspecified, unspecified site; N17.9 Acute kidney failure, unspecified; N18.30 Chronic kidney disease, stage 3 unspecified; I12.9 Hypertensive chronic kidney disease with stage 1 through stage 4 chronic kidney disease, or unspecified chronic kidney disease
CPT/HCPCS: 52332; 74018; 76000; 82962; 87635; 99215; C9803; J0744; J1100; J1885; J2250; J2405; J2704; J3010

== ENCOUNTER 2022-01-06 10:07 | Emergency (ER) | payer MEDICARE, OTHER, SELFPAY ==
[2022-01-06] VITALS (36 sets, daily range): BP systolic 119–165; BP diastolic 55–80; PULSE 69–86; RESP 11–21; TEMP 37.3; O2SAT 94–99; BMI 32.2
--- NOTE | 2022-01-06 10:32 | DI.CT.S_ITS ---
PROCEDURE: CT HEAD/BRAIN WO CON INDICATIONS: confusion. TECHNIQUE: Noncontrast 4.5 mm thick angled axial sections acquired from the foramen magnum to the vertex, with coronal and sagittal reformats. For radiation dose reduction, the following was used: automated exposure control, adjustment of mA and/or kV according to patient size. COMPARISON: None. FINDINGS: Image quality: Excellent. CSF spaces: Basal cisterns are patent. No extra-axial fluid collections. The ventricles are symmetric in size and shape. Brain: No intracranial bleeds or masses. There is cerebral volume loss for age, with resultant ventricular and sulcal prominence. There are periventricular and deep white matter chronic small vessel ischemic changes. There is intracranial internal carotid artery atherosclerosis. Skull and face: Calvarium and visualized facial bones appear intact, without suspicious lesions. Sinuses: Visualized sinuses and mastoids are clear. IMPRESSION: 1. No CT evidence of acute intracranial abnormality. 2. Age-appropriate atrophy and moderate white matter chronic small vessel ischemic changes. Dictated by: Gerson Terry M.D. on 01/06/2022 at 11:18 Approved by: Gerson Terry M.D. on 01/06/2022 at 11:19
--- NOTE | 2022-01-06 10:32 | DI.RAD.S_ITS ---
PROCEDURE: XR CHEST 1V INDICATIONS: suspected sepsis TECHNIQUE: One view of the chest was acquired. COMPARISON: [facility], [place], XR CHEST 1V, 06/09/2018, 18:10. FINDINGS: Surgical changes and devices: None. Lungs and pleura: Atelectasis at right lower lung field is seen. No pleural effusions or pneumothorax. Mediastinum: Mediastinal contours appear normal. Heart size is enlarged. Bones and chest wall: No suspicious bony lesions. Overlying soft tissues appear unremarkable. IMPRESSION: Right basilar atelectasis. No definite focal infiltrate. No pleural effusion or pneumothorax. Dictated by: Gerson Terry M.D. on 01/06/2022 at 11:18 Approved by: Gerson Terry M.D. on 01/06/2022 at 11:18
[2022-01-06 10:49] LABS: Add Manual Diff / Slide Review NO; Basophils Absolute Auto 100 /uL (0-100); Basophils Percent Auto 0.4 % (0-2); Eosinophils Absolute Auto 100 /uL (0-450); Eosinophils Percent Auto 0.9 % (2-4); Hemoglobin 8.3 g/dL (12.0-16.0); Lymphocytes Absolute Auto 100 /uL (1100-4500); Mean Corpuscular HGB Conc 34.6 % (30-36); Mean Corpuscular Hemoglobin 28.8 PG (26-34); Mean Corpuscular Volume 83.2 fL (80-100); Monocytes Absolute Auto 500 /uL (0-900); Monocytes Percent Auto 3.9 % (3-14); Neutrophils Absolute Auto 12200 /uL (1500-7000); Neutrophils Percent Auto 93.8 % (50-75); Platelet Count 343 X10^3/uL (150-400); Red Blood Cell Count 2.89 X10^6/uL (4.0-5.2); Red Cell Distribution Width 15.1 % (11.6-14.8)
[2022-01-06 10:58] LABS: COVID19 -Nasal RAPID Negative (Negative)
[2022-01-06 10:59] LABS: Alanine Aminotransferase 40 IU/L (<35); Albumin 3.3 g/dL (3.5-5.0); Albumin Globulin Ratio 1.3 (1.0-2.8); Alkaline Phosphatase 143 U/L (38-126); Aspartate Aminotransferase 54 IU/L (14-36); BUN Creatinine Ratio 15.6 (6-22); Bilirubin Total 0.6 mg/dL (0.2-1.3); Blood Urea Nitrogen 64 mg/dL (7-17); Calcium 10.8 mg/dL (8.4-10.2); Carbon Dioxide 18 mmol/L (22-32); Chloride 96 mmol/L (98-107); Estimated Glomerular Filt Rate 11 mL/min (>60); Globulin 2.6 g/dL (1.7-4.1); Glucose 93 mg/dL (80-110); HEMOLYSIS < 15 (0-50); Lactate (Lactic Acid) 1.2 mmol/L (0.7-2.1); Lipase 61 U/L (23-300); Potassium 4.3 mmol/L (3.4-5.1); Sodium 127 mmol/L (137-145); Total Protein 5.9 g/dL (6.3-8.2)
[2022-01-06] MEDS: SODIUM CHLORIDE 0.9% 1,000 ML 1000 ML IV (11:06)
--- NOTE | 2022-01-06 11:09 | DI.CT.S_ITS ---
PROCEDURE: CT CHEST ABD PEL WO CON INDICATIONS: compare hx lymphoma TECHNIQUE: After the administration of oral contrast, 5 mm thick sections acquired from the lung apices to the symphysis pubis. 5 mm thick coronal and sagittal reformats acquired, with additional 7 mm coronal MIP reformats through the lungs. For radiation dose reduction, the following was used: automated exposure control, adjustment of mA and/or kV according to patient size. COMPARISON: [facility], RG, CT PET SKULL BASE TO MID THIGH, 12/01/2021, 14:39. [facility], CT, CT CHEST ABD PEL WO CON, 04/01/2021, 10:56. FINDINGS: Image quality: Excellent. CHEST: Lungs and pleura: Compared to prior studies, there is interval development of multiple ill-defined ground-glass densities scattered in bilateral lung albarado measures up to 6 mm in size in posterior lateral right upper lobe series 13, image 123, 6.5 mm in size in right middle lobe series 13, image 135, 6 mm in size in right lower lobe series 13, image 135, 6 mm in size in lateral left upper lobe series 13, image 81 . Scattered scarring/atelectasis in periphery of bilateral lung albarado are also seen more prominent at left lung base. No pleural effusions or pneumothorax. Central and peripheral airways are patent are normal in caliber. Nodular pleural thickening in lateral right hemithorax between 7th and 8th rib is again seen now measures 2 cm in size. Series 12, image 31. Hypermetabolic activity in this area was noted on previous PET scan. Mediastinum: Heart size is mildly enlarged. No pericardial effusion. Mildly prominent mediastinal lymph nodes and bilateral hilar lymph nodes are seen measures up to 9 mm in size in left paratracheal space series 12, image 20 and 1.1 cm in size in subcarinal space series 12, image 25. Thoracic aorta and central pulmonary arteries are normal in size. Mild atherosclerotic calcifications are seen in coronary vessels and thoracic aorta. Esophagus is normal in caliber. No hiatal hernia. Chest wall: No axillary or supraclavicular adenopathy by size criteria. Thyroid gland is diffusely enlarged with area of hypodensity and coarse calcifications suggestive of nodular goiter. ABDOMEN: Solid organs: There is hepatomegaly and hepatic steatosis unchanged from prior study. Numerous well-circumscribed hypodense areas are again seen scattered in liver parenchyma. Some of these areas show increased metabolic activity suggestive of liver metastatic disease particularly in anterior periphery of left hepatic lobe. Gallbladder is within normal limits. Pancreas is normal in contours. Spleen is normal in size. No adrenal nodules. Bilateral kidneys are normal in size. Left-sided ureteral stent is seen in place. No hydronephrosis or hydroureter. Previous PET-CT finding of hypermetabolic and slightly exophytic mass involving posterior lateral cortex of upper pole left kidney is not significantly changed series 12, image 59 and measures approximately 1.4 x 1.8 cm in size. Peritoneum and bowel: There is no bowel obstruction. No abnormal bowel wall thickening or mesenteric fat stranding. No abscess collection. No free fluid or free air. Nodes and vessels: There is massive retroperitoneal lymphadenopathy centered at the level of kidney measures up to 10 x 9.9 cm in largest AP and transverse dimension compared to 8.6 cm in largest AP diameter an mora on recent PET-CT scan series 12, image 64 . The retroperitoneal lymphadenopathy now measures 13 cm in craniocaudal dimension compared to 11 cm on PET-CT scan series 14 image 30. The tumor mass is seen encasing abdominal aorta and IVC with heterogeneous density. Soft tissue densities are noted scattered in mid to right lower quadrant mesentery measures up to 1.7 x 1.3 cm in size series 12, image 67 concerning for mesenteric lymph nodes lymphadenopathy. 1.3 x 1.8 cm soft tissue density nodule is seen in right lower quadrant inferior to right hepatic lobe series 12, image 72. There is encasement of the left ureter from above-mentioned retroperitoneal mass. Abdominal aorta and IVC are normal in size. Miscellaneous: No ventral hernias. PELVIS: Genitourinary: Bladder wall thickness is normal. Miscellaneous: No inguinal hernias or adenopathy. Bones: No suspicious bony lesions. No vertebral body compression fractures. IMPRESSION: 1. Interval further increase in size of patient's known hypermetabolic retroperitoneal mass consistent with lymphoma. There is encasement of left ureter and abdominal aorta. 2. Interval development of mesenteric soft tissue density nodules suggestive of mesenteric lymphadenopathy secondary to lymphoma. 3. Hypodensities scattered in liver parenchyma mostly stable in size compared to previous studies. Hypermetabolic areas are noted in some of these lesions consistent with liver metastatic disease. 4. Mild mediastinal lymphadenopathy concerning for lymphoma involvement. 5. Interval development of extensive ground-glass opacities scattered in bilateral lung albarado concerning for infiltrates from atypical pneumonia new since recent PET-CT scan. Previously described pleural base nodule in lateral right hemithorax appears slightly more prominent in size and show hypermetabolic activity on previous PET-CT scan. No significant pleural effusion. No pneumothorax. 6. Left-sided ureteral stent in place. No hydronephrosis. Patient's known hypermetabolic lesion involving upper pole of left kidney is again seen and appears unchanged from recent PET-CT scan. Dictated by: Gerson Terry M.D. on 01/06/2022 at 11:20 Approved by: Gerson Terry M.D. on 01/06/2022 at 12:06
--- NOTE | 2022-01-06 11:09 | DI.CT.S_ITS ---
PROCEDURE: CT SOFT TISSUE NECK WO CON INDICATIONS: compare lymphoma TECHNIQUE: Non-contrast 3.0 mm axial sections acquired from the sella to the aortic arch. Additional oblique axial 3.0 mm sections acquired through the pharynx. 3 mm thick coronal and sagittal reformats were generated. For radiation dose reduction, the following was used: automated exposure control. COMPARISON: [facility], RG, CT PET SKULL BASE TO MID THIGH, 12/01/2021, 14:39. [facility], CT, CT SOFT TISSUE NECK WO CON, 04/01/2021, 10:56. [facility], CT, CT CHEST ABD PEL WO CON, 01/06/2022, 10:36. FINDINGS: Image quality: Excellent. Lymph nodes: Borderline prominent lymph nodes are seen within the neck, including a right level 2A lymph that measures 11 x 8 mm. Within the mediastinum, there are partially visualized enlarged lymph nodes can be including a prevascular lymph node that measures 16 x 10 mm. Vessels: Non-opacified vessels appear normal in caliber. Neck spaces: The oropharynx, nasopharynx, and pharynx demonstrate no mucosal lesions. The vocal cords, false vocal cords, pyriform sinuses, epiglottis, vallecula, and tongue base all appear normal. Extramucosal spaces appear unremarkable. Glands: The parotid and submandibular glands appear normal, without stones. Thyroid gland demonstrates several nodules, including a right-sided 2.8 cm nodule. Miscellaneous: Visualized brain and orbits appear normal. Poorly defined nodules can be seen at the lung apices, with the largest on the right on series 8, image 64 measuring 1 cm. Superficial soft tissues appear normal. IMPRESSION: There borderline prominent neck lymph nodes and mildly enlarged mediastinal lymph nodes. Poorly defined lung nodules are seen at the lung apices. Please see the accompanying report of the chest abdomen pelvis CT. Several thyroid nodules are seen. Dictated by: Trey Gil M.D. on 01/06/2022 at 10:39 Approved by: Trey Gil M.D. on 01/06/2022 at 10:47
--- NOTE | 2022-01-06 11:09 | ED_ITS ---
HPI - General Adult <Tisha Arroyo MD - Last Filed: 01/11/22 17:59> General Chief complaint: Weakness Stated complaint: 2 Falls, no muscle tone Time Seen by Provider: 01/06/22 10:21 Source: patient and family Mode of arrival: Family Vehicle History of Present Illness HPI narrative: 71-year-old woman with a history of progressive, recurrent follicular lymphoma, with her 3rd exacerbation currently. She has a history of renal dysfunction and has been seen by Nephrology, Dr Camacho, in October her losartan was discontinued and coreg was added. On November 20 she had an MR of the abdomen that showed bulky retroperitoneal adenopathy causing left ureteral obstruction and severe left hydronephrosis. On November 27, a left ureteral stent was placed by Dr. Galdamez. She currently is on rituximab weekly and was to have a CT of the chest abdomen pelvis in follow-up, this was scheduled for tomorrow and was performed today. She presents with increasing weakness, confusion and falling. Her reports that she fell twice yesterday. She states that her legs were simply too weak to hold her up and she slumped to the floor. Does not feel that she injured herself aside from a minor bruise to her left knee. After the 1st fall she was on the floor for about an hour until her came home and they report that it took an extended period of time to help her back up to a seated position. Her notes that she has been increasingly confused for the last 2 weeks. She has not had significant weight loss, describes no chest pain or palpitations. Has intermittent right-sided abdominal pain that is felt to be due to her lymphoma Related Data Home Medications Medication Instructions Recorded Confirmed imipramine HCl 50 mg tablet 50 mg PO Q DAY ##0 12/01/12 01/06/22 (Tofranil) carvedilol 12.5 mg tablet 12.5 mg PO BID 04/24/21 01/06/22 amlodipine 2.5 mg tablet (Norvasc) 2.5 mg PO DAILY 07/24/21 01/06/22 sertraline 100 mg tablet 100 mg PO DAILY 07/24/21 01/06/22 gabapentin 100 mg capsule 100 mg PO BEDTIME 11/21/21 01/06/22 Previous Rx's Medication Instructions Recorded lorazepam 0.5 mg tablet 0.5 mg PO BEDTIME PRN Sleep, 12/25/21 anxiety #30 tabs oxycodone 10 mg tablet 10 mg PO Q6H PRN cancer pain #60 01/01/22 tabs Allergies Allergy/AdvReac Type Severity Reaction Status Date / Time Iodinated Contrast Media Allergy Severe Hives Verified 11/27/21 16:56 [Iodinated Contrast- Oral and IV Dye] amoxicillin Allergy Intermediate Rash Verified 11/25/21 08:05 atorvastatin Allergy Intermediate Muscle Pain Verified 11/27/21 16:56 Sulfa (Sulfonamide Allergy Intermediate Hives Verified 11/25/21 08:05 Antibiotics) Review of Systems <Tisha Arroyo MD - Last Filed: 01/11/22 17:59> Review of Systems Narrative: Remainder of complete review of systems is otherwise unremarkable except for that included in the HPI. Patient History <Tisha Arroyo MD - Last Filed: 01/11/22 17:59> Medical History Acute kidney injury Anxiety Arthritis CKD (chronic kidney disease) Diffuse lymphadenopathy Headache, migraine History of depression History of non-Hodgkin's lymphoma HLD (hyperlipidemia) HTN (hypertension) Hx of thyroid nodule Hydronephrosis, left Left renal mass Low back pain Neuropathy Panic disorder Renal mass Rheumatoid arthritis Surgical History H/O breast biopsy (~1985) History of appendectomy (~1966) History of surgery (03/03/18) History of thoracentesis Hx of lymph node biopsy (2017) Family History Mother Hypertension Stroke IBS (irritable bowel syndrome) Thyroid disease Brother Hodgkins lymphoma Grandmother Stroke Social History marital status: number of children: 2 household members: spouse Smoking Status: Never smoker alcohol intake: former Type(s) of exercise: other frequency: 5-6 times per week Smoking Status: Never smoker Substance Use Type: does not use Exam <Tisha Arroyo MD - Last Filed: 01/11/22 17:59> Initial Vital Signs Initial Vital Signs: Vital Signs Pulse Rate 80 01/06/22 10:18 Pulse Oximetry 97 01/06/22 10:18 General: Healthy appearing, confused but cooperative Well-nourished well- developed HEENT: Moist mucous membranes, normal sclera with reactive pupils, Neck: No JVD, supple Respiratory: Lungs are clear to auscultation, no wheezing no rales no rhonchi. Full and symmetrical air movement Cardiac: Regular rate and rhythm no murmurs no bruits Abdomen: Soft, nontender, good bowel tones, no flank pain Skin: Warm and dry, she has minor bruises bilaterally over greater trochanters that both appear to be old Neurologic: Globally weak, Grossly neurologically intact with no obvious asymmetries or abnormalities Extremities: No trauma, well perfused Psych: Cooperative, confused with difficulty tracking and continuing sentences <Gerardo Hurtado MD - Last Filed: 01/07/22 23:55> Initial Vital Signs Initial Vital Signs: Vital Signs Pulse Rate 80 01/06/22 10:18 Pulse Oximetry 97 01/06/22 10:18 <Bettye Power DO - Last Filed: 01/07/22 18:56> Initial Vital Signs Initial Vital Signs: Vital Signs Pulse Rate 80 01/06/22 10:18 Pulse Oximetry 97 01/06/22 10:18 Course <Tisha Arroyo MD - Last Filed: 01/11/22 17:59> Orders Ordered: Discontinued Medications Carvedilol (Carvedilol 12.5 Mg Tablet) 12.5 mg PO NOW ONE Stop: 01/07/22 10:31 Last Admin: 01/07/22 10:38 Dose: 12.5 mg Documented By: MAICO Fluconazole (Fluconazole 100 Mg Tablet) 100 mg PO NOW ONE Stop: 01/07/22 10:30 Last Admin: 01/07/22 10:38 Dose: 100 mg Documented By: MAICO Gabapentin (Gabapentin 100 Mg Capsule) 100 mg PO BEDTIME [facility] Last Admin: 01/06/22 21:04 Dose: 100 mg Documented By: KULWANT Sodium Chloride (Normal Saline 0.9%) 1,000 mls @ 1,000 mls/hr IV BOLUS ONE Stop: 01/06/22 11:31 Last Infusion: 01/06/22 13:31 Dose: 0 mls/hr Documented By: Admin: 01/06/22 11:06 Dose: 1,000 mls/hr Documented By: KULWANT Ceftriaxone Sodium 2,000 mg/ (Sodium Chloride) 100 mls @ 200 mls/hr IV NOW ONE Stop: 01/07/22 07:40 Last Infusion: 01/07/22 09:32 Dose: 0 mls/hr Documented By: Admin: 01/07/22 08:57 Dose: 200 mls/hr Documented By: KF Sodium Chloride (Normal Saline 0.9%) 1,000 mls @ 150 mls/hr IV CONT [facility] Last Infusion: 01/07/22 16:17 Dose: 0 mls/hr Documented By: Admin: 01/07/22 08:57 Dose: 150 mls/hr Documented By: KF Imipramine HCl (Imipramine Hcl 25 Mg Tablet) 50 mg PO BEDTIME [facility] Last Admin: 01/06/22 21:04 Dose: 50 mg Documented By: SB Ketorolac Tromethamine (Ketorolac 30 Mg/Ml Vial) 15 mg IV NOW ONE Stop: 01/06/22 15:00 Last Admin: 01/06/22 15:33 Dose: Not Given Documented By: KULWANT Methylprednisolone (Methylprednisolone 125 Mg/2 Ml Vial) 125 mg IV NOW ONE Stop: 01/06/22 14:43 Last Admin: 01/06/22 15:27 Dose: 125 mg Documented By: KULWANT Oxycodone HCl (Oxycodone Ir 5 Mg Tablet) 10 mg PO Q6HR PRN PRN Reason: Pain, Moderate (4-6) Oxycodone/Acetaminophen (Oxycodone/Acetaminophen 5/325 Tablet) 1 tab PO NOW ONE Stop: 01/06/22 15:00 Last Admin: 01/06/22 15:33 Dose: Not Given Documented By: KULWANT Sertraline HCl (Sertraline 50 Mg Tablet) 100 mg PO DAILY [facility] Last Admin: 01/07/22 10:27 Dose: 100 mg Documented By: KF Vital Signs Vital signs: Vital Signs - 8 hr 01/07/22 16:00 01/07/22 16:01 01/07/22 16:01 Pulse Rate 80 81 Respiratory Rate 16 22 Blood Pressure 165/70 H Pulse Oximetry 95 95 <Gerardo Hurtado MD - Last Filed: 01/07/22 23:55> Course Course Narrative: 7:00 p.m.. Sign-out from Dr. Funes. Patient has follicular lymphoma on chemotherapy. Followed by Dr. Kearns with [facility] oncology. He has been contacted. Patient is on waiting list to transfer to [facility] for continuity care. Patient does have acute renal failure with no hydronephrosis does have ureteral stents. Will need home medications for tonight 7:15 p.m.. Spoke with patient and understands need for transfer. She is in no distress. Just needs her nighttime medications. I spoke with nurse and they are scheduled to be given tonight January 07, 2022 at 7:00 a.m.. Sign-out to Dr. Power, patient is on waiting list or [facility]. For continuity care with Dr. Carmen, oncology. Patient with follicular lymphoma. Has long abdominal mass with ureteral stents but no hydronephrosis. Patient with acute renal failure. Morning labs to be drawn. Will need morning medications as well Brennick Orders Ordered: Discontinued Medications Carvedilol (Carvedilol 12.5 Mg Tablet) 12.5 mg PO NOW ONE Stop: 01/07/22 10:31 Last Admin: 01/07/22 10:38 Dose: 12.5 mg Documented By: MAICO Fluconazole (Fluconazole 100 Mg Tablet) 100 mg PO NOW ONE Stop: 01/07/22 10:30 Last Admin: 01/07/22 10:38 Dose: 100 mg Documented By: MAICO Gabapentin (Gabapentin 100 Mg Capsule) 100 mg PO BEDTIME [facility] Last Admin: 01/06/22 21:04 Dose: 100 mg Documented By: KULWANT Sodium Chloride (Normal Saline 0.9%) 1,000 mls @ 1,000 mls/hr IV BOLUS ONE Stop: 01/06/22 11:31 Last Infusion: 01/06/22 13:31 Dose: 0 mls/hr Documented By: Admin: 01/06/22 11:06 Dose: 1,000 mls/hr Documented By: KULWANT Ceftriaxone Sodium 2,000 mg/ (Sodium Chloride) 100 mls @ 200 mls/hr IV NOW ONE Stop: 01/07/22 07:40 Last Infusion: 01/07/22 09:32 Dose: 0 mls/hr Documented By: Admin: 01/07/22 08:57 Dose: 200 mls/hr Documented By: MAICO Sodium Chloride (Normal Saline 0.9%) 1,000 mls @ 150 mls/hr IV CONT [facility] Last Infusion: 01/07/22 16:17 Dose: 0 mls/hr Documented By: Admin: 01/07/22 08:57 Dose: 150 mls/hr Documented By: MAICO Imipramine HCl (Imipramine Hcl 25 Mg Tablet) 50 mg PO BEDTIME [facility] Last Admin: 01/06/22 21:04 Dose: 50 mg Documented By: KULWANT Ketorolac Tromethamine (Ketorolac 30 Mg/Ml Vial) 15 mg IV NOW ONE Stop: 01/06/22 15:00 Last Admin: 01/06/22 15:33 Dose: Not Given Documented By: KULWANT Methylprednisolone (Methylprednisolone 125 Mg/2 Ml Vial) 125 mg IV NOW ONE Stop: 01/06/22 14:43 Last Admin: 01/06/22 15:27 Dose: 125 mg Documented By: KULWANT Oxycodone HCl (Oxycodone Ir 5 Mg Tablet) 10 mg PO Q6HR PRN PRN Reason: Pain, Moderate (4-6) Oxycodone/Acetaminophen (Oxycodone/Acetaminophen 5/325 Tablet) 1 tab PO NOW ONE Stop: 01/06/22 15:00 Last Admin: 01/06/22 15:33 Dose: Not Given Documented By: KULWANT Sertraline HCl (Sertraline 50 Mg Tablet) 100 mg PO DAILY [facility] Last Admin: 01/07/22 10:27 Dose: 100 mg Documented By: MAICO Vital Signs Vital signs: Vital Signs - 8 hr 01/07/22 16:00 01/07/22 16:01 01/07/22 16:01 Pulse Rate 80 81 Respiratory Rate 16 22 Blood Pressure 165/70 H Pulse Oximetry 95 95 <Bettye Power, - Last Filed: 01/07/22 18:56> Orders Ordered: Discontinued Medications Carvedilol (Carvedilol 12.5 Mg Tablet) 12.5 mg PO NOW ONE Stop: 01/07/22 10:31 Last Admin: 01/07/22 10:38 Dose: 12.5 mg Documented By: MAICO Fluconazole (Fluconazole 100 Mg Tablet) 100 mg PO NOW ONE Stop: 01/07/22 10:30 Last Admin: 01/07/22 10:38 Dose: 100 mg Documented By: MAICO Gabapentin (Gabapentin 100 Mg Capsule) 100 mg PO BEDTIME [facility] Last Admin: 01/06/22 21:04 Dose: 100 mg Documented By: KULWANT Sodium Chloride (Normal Saline 0.9%) 1,000 mls @ 1,000 mls/hr IV BOLUS ONE Stop: 01/06/22 11:31 Last Infusion: 01/06/22 13:31 Dose: 0 mls/hr Documented By: Admin: 01/06/22 11:06 Dose: 1,000 mls/hr Documented By: KULWANT Ceftriaxone Sodium 2,000 mg/ (Sodium Chloride) 100 mls @ 200 mls/hr IV NOW ONE Stop: 01/07/22 07:40 Last Infusion: 01/07/22 09:32 Dose: 0 mls/hr Documented By: Admin: 01/07/22 08:57 Dose: 200 mls/hr Documented By: MAICO Sodium Chloride (Normal Saline 0.9%) 1,000 mls @ 150 mls/hr IV CONT [facility] Last Infusion: 01/07/22 16:17 Dose: 0 mls/hr Documented By: Admin: 01/07/22 08:57 Dose: 150 mls/hr Documented By: MAICO Imipramine HCl (Imipramine Hcl 25 Mg Tablet) 50 mg PO BEDTIME [facility] Last Admin: 01/06/22 21:04 Dose: 50 mg Documented By: KULWANT Ketorolac Tromethamine (Ketorolac 30 Mg/Ml Vial) 15 mg IV NOW ONE Stop: 01/06/22 15:00 Last Admin: 01/06/22 15:33 Dose: Not Given Documented By: KULWANT Methylprednisolone (Methylprednisolone 125 Mg/2 Ml Vial) 125 mg IV NOW ONE Stop: 01/06/22 14:43 Last Admin: 01/06/22 15:27 Dose: 125 mg Documented By: KULWANT Oxycodone HCl (Oxycodone Ir 5 Mg Tablet) 10 mg PO Q6HR PRN PRN Reason: Pain, Moderate (4-6) Oxycodone/Acetaminophen (Oxycodone/Acetaminophen 5/325 Tablet) 1 tab PO NOW ONE Stop: 01/06/22 15:00 Last Admin: 01/06/22 15:33 Dose: Not Given Documented By: KULWANT Sertraline HCl (Sertraline 50 Mg Tablet) 100 mg PO DAILY [facility] Last Admin: 01/07/22 10:27 Dose: 100 mg Documented By: MAICO Vital Signs Vital signs: Vital Signs - 8 hr 01/07/22 16:00 01/07/22 16:01 01/07/22 16:01 Pulse Rate 80 81 Respiratory Rate 16 22 Blood Pressure 165/70 H Pulse Oximetry 95 95 Medical Decision Making <Tisha Arroyo MD - Last Filed: 01/11/22 17:59> Lab Data Result diagrams: 01/07/22 08:20 01/07/22 08:20 Labs: Lab Results 01/06/22 01/06/22 01/06/22 Range/Units 10:35 10:35 10:35 WBC 13.0 H (4.5-11.0) X10^3/uL RBC 2.89 L (4.0-5.2) X10^6/uL Hgb 8.3 L (12.0-16.0) g/dL Hct 24.0 L (36-46) % MCV 83.2 (80-100) fL MCH 28.8 (26-34) PG MCHC 34.6 (30-36) % RDW 15.1 H (11.6-14.8) % Plt Count 343 (150-400) X10^3/uL Neut % (Auto) 93.8 H (50-75) % Lymph % (Auto) 1.0 L (25-40) % [place] % (Auto) 3.9 (3-14) % Eos % (Auto) 0.9 L (2-4) % Baso % (Auto) 0.4 (0-2) % Neut # (Auto) 40179 H (7232-5868) /uL Lymph # (Auto) 100 L (6668-6592) /uL [place] # (Auto) 500 (0-900) /uL Eos # (Auto) 100 (0-450) /uL Baso # (Auto) 100 (0-100) /uL Sodium 127 L (137-145) mmol/L Potassium 4.3 (3.4-5.1) mmol/L Chloride 96 L (98-107) mmol/L Carbon Dioxide 18 L (22-32) mmol/L BUN 64 H (7-17) mg/dL Creatinine 4.11 H (0.52-1.04) mg/dL Estimated GFR 11 L (>60) mL/min BUN/Creatinine Ratio 15.6 (6-22) Glucose 93 (80-110) mg/dL Lactate 1.2 (0.7-2.1) mmol/L Calcium 10.8 H (8.4-10.2) mg/dL Total Bilirubin 0.6 (0.2-1.3) mg/dL AST 54 H (14-36) IU/L ALT 40 H (<35) IU/L Alkaline Phosphatase 143 H (38-126) U/L Total Creatine Kinase (30-135) U/L CK-MB (CK-2) (<2.37) ng/mL CK-MB (CK-2) Rel Index (1.5-5.0) % Troponin I (0.01-0.034) ng/mL Total Protein 5.9 L (6.3-8.2) g/dL Albumin 3.3 L (3.5-5.0) g/dL Globulin 2.6 (1.7-4.1) g/dL Albumin/Globulin Ratio 1.3 (1.0-2.8) Lipase 61 (23-300) U/L Procalcitonin 0.81 H (<0.5) ng/mL SARS-CoV-2 (PCR) (Negative) 01/06/22 01/06/22 01/07/22 Range/Units 10:41 11:29 08:20 WBC 9.1 (4.5-11.0) X10^3/uL RBC 2.92 L (4.0-5.2) X10^6/uL Hgb 8.5 L (12.0-16.0) g/dL Hct 24.6 L (36-46) % MCV 84.4 (80-100) fL MCH 29.2 (26-34) PG MCHC 34.6 (30-36) % RDW 15.3 H (11.6-14.8) % Plt Count 368 (150-400) X10^3/uL Neut % (Auto) 96.6 H (50-75) % Lymph % (Auto) 1.5 L (25-40) % [place] % (Auto) 1.8 L (3-14) % Eos % (Auto) 0.0 L (2-4) % Baso % (Auto) 0.1 (0-2) % Neut # (Auto) 8800 H (2570-8201) /uL Lymph # (Auto) 100 L (3347-0340) /uL [place] # (Auto) 200 (0-900) /uL Eos # (Auto) 0 (0-450) /uL Baso # (Auto) 0 (0-100) /uL Sodium (137-145) mmol/L Potassium (3.4-5.1) mmol/L Chloride (98-107) mmol/L Carbon Dioxide (22-32) mmol/L BUN (7-17) mg/dL Creatinine (0.52-1.04) mg/dL Estimated GFR (>60) mL/min BUN/Creatinine Ratio (6-22) Glucose (80-110) mg/dL Lactate (0.7-2.1) mmol/L Calcium (8.4-10.2) mg/dL Total Bilirubin (0.2-1.3) mg/dL AST (14-36) IU/L ALT (<35) IU/L Alkaline Phosphatase (38-126) U/L Total Creatine Kinase 241 H (30-135) U/L CK-MB (CK-2) 5.10 H (<2.37) ng/mL CK-MB (CK-2) Rel Index 2.1 (1.5-5.0) % Troponin I 0.015 (0.01-0.034) ng/mL Total Protein (6.3-8.2) g/dL Albumin (3.5-5.0) g/dL Globulin (1.7-4.1) g/dL Albumin/Globulin Ratio (1.0-2.8) Lipase (23-300) U/L Procalcitonin (<0.5) ng/mL SARS-CoV-2 (PCR) Negative (Negative) 01/07/22 01/07/22 Range/Units 08:20 08:20 WBC (4.5-11.0) X10^3/uL RBC (4.0-5.2) X10^6/uL Hgb (12.0-16.0) g/dL Hct (36-46) % MCV (80-100) fL MCH (26-34) PG MCHC (30-36) % RDW (11.6-14.8) % Plt Count (150-400) X10^3/uL Neut % (Auto) (50-75) % Lymph % (Auto) (25-40) % [place] % (Auto) (3-14) % Eos % (Auto) (2-4) % Baso % (Auto) (0-2) % Neut # (Auto) (5424-2429) /uL Lymph # (Auto) (6929-9624) /uL [place] # (Auto) (0-900) /uL Eos # (Auto) (0-450) /uL Baso # (Auto) (0-100) /uL Sodium 129 L (137-145) mmol/L Potassium 4.6 (3.4-5.1) mmol/L Chloride 98 (98-107) mmol/L Carbon Dioxide 16 L (22-32) mmol/L BUN 69 H (7-17) mg/dL Creatinine 3.45 H (0.52-1.04) mg/dL Estimated GFR 14 L (>60) mL/min BUN/Creatinine Ratio 20.0 (6-22) Glucose 143 H (80-110) mg/dL Lactate 1.0 (0.7-2.1) mmol/L Calcium 10.3 H (8.4-10.2) mg/dL Total Bilirubin 0.5 (0.2-1.3) mg/dL AST 41 H (14-36) IU/L ALT 40 H (<35) IU/L Alkaline Phosphatase 131 H (38-126) U/L Total Creatine Kinase (30-135) U/L CK-MB (CK-2) (<2.37) ng/mL CK-MB (CK-2) Rel Index (1.5-5.0) % Troponin I (0.01-0.034) ng/mL Total Protein 5.9 L (6.3-8.2) g/dL Albumin 3.3 L (3.5-5.0) g/dL Globulin 2.6 (1.7-4.1) g/dL Albumin/Globulin Ratio 1.3 (1.0-2.8) Lipase (23-300) U/L Procalcitonin 0.61 H (<0.5) ng/mL SARS-CoV-2 (PCR) (Negative) Urine Dip Bedside Urine Glucose Negative Bedside Urine Bilirubin - Negative Bedside Urine Ketone - Negative Urine Specific Mack 1.015 Bedside Urine Occult Blood +++ Bedside Urine pH 6.0 Bedside Urine Protein +/- 15 Bedside Urine Urobilinogen - Negative Bedside Urine Nitrite - Negative Bedside Urine Leukocytes - Negative Esterase Point of care testing: Urine Dip Bedside Urine Glucose Negative Bedside Urine Bilirubin - Negative Bedside Urine Ketone - Negative Urine Specific Mack 1.015 Bedside Urine Occult Blood +++ Bedside Urine pH 6.0 Bedside Urine Protein +/- 15 Bedside Urine Urobilinogen - Negative Bedside Urine Nitrite - Negative Bedside Urine Leukocytes - Negative Esterase Imaging Data Chest x-ray: Radiologist's Impression: FINDINGS:? ? Surgical changes and devices:? None.? ? Lungs and pleura:? Atelectasis at right lower lung field is seen.? No pleural effusions or pneumothorax.? ? Mediastinum:? Mediastinal contours appear normal.? Heart size is enlarged.? ? Bones and chest wall:? No suspicious bony lesions.? Overlying soft tissues appear unremarkable.? ? IMPRESSION:? Right basilar atelectasis.? No definite focal infiltrate.? No pleural effusion or pneumothorax.? ? ? Dictated by: Gerson Terry M.D. on 01/06/2022 at 11:18 ? ? CT scan - head: Radiologist's Impression: FINDINGS:? Image quality:? Excellent.? ? CSF spaces:? Basal cisterns are patent.? No extra-axial fluid collections.? The ventricles are symmetric in size and shape.? ? Brain:? No intracranial bleeds or masses.? There is cerebral volume loss for age, with resultant ventricular and sulcal prominence.? There are periventricular and deep white matter chronic small vessel ischemic changes.? There is intracranial internal carotid artery atherosclerosis.? ? Skull and face:? Calvarium and visualized facial bones appear intact, without suspicious lesions.? ? Sinuses:? Visualized sinuses and mastoids are clear.? ? IMPRESSION:? 1. No CT evidence of acute intracranial abnormality. 2.? Age-appropriate atrophy and moderate white matter chronic small vessel ischemic changes. ? ? Dictated by: Gerson Terry M.D. on 01/06/2022 at 11:18 ? ? CT chest abd and pelvis: Radiologist's Impression: INDINGS:? Image quality:? Excellent.? ? CHEST:? Lungs and pleura:? Compared to prior studies, there is interval development of multiple ill-defined ground-glass densities scattered in bilateral lung albarado measures up to 6 mm in size in posterior lateral right upper lobe series 13, image 123, 6.5 mm in size in right middle lobe series 13, image 135, 6 mm in size in right lower lobe series 13, image 135, 6 mm in size in lateral left upper lobe series 13, image 81 .? Scattered scarring/atelectasis in periphery of bilateral lung albarado are also seen more prominent at left lung base.? No pleural effusions or pneumothorax.? Central and peripheral airways are patent are normal in caliber.? Nodular pleural thickening in lateral right hemithorax between 7th and 8th rib is again seen now measures 2 cm in size.? Series 12, image 31.? Hypermetabolic activity in this area was noted on previous PET scan. ? Mediastinum:? Heart size is mildly enlarged.? No pericardial effusion.? Mildly prominent mediastinal lymph nodes and bilateral hilar lymph nodes are seen measures up to 9 mm in size in left paratracheal space series 12, image 20 and 1.1 cm in size in subcarinal space series 12, image 25.? Thoracic aorta and central pulmonary arteries are normal in size.? Mild atherosclerotic calcifications are seen in coronary vessels and thoracic aorta.? Esophagus is normal in caliber.? No hiatal hernia.? ? Chest wall:? No axillary or supraclavicular adenopathy by size criteria.? Thyroid gland is diffusely enlarged with area of hypodensity and coarse calcifications suggestive of nodular goiter. ? ? ABDOMEN:? Solid organs:? There is hepatomegaly and hepatic steatosis unchanged from prior study.? Numerous well-circumscribed hypodense areas are again seen scattered in liver parenchyma. ?Some of these areas show increased metabolic activity suggestive of liver metastatic disease particularly in anterior periphery of left hepatic lobe.? Gallbladder is within normal limits.? Pancreas is normal in contours.? Spleen is normal in size.? No adrenal nodules.? Bilateral kidneys are normal in size.? Left-sided ureteral stent is seen in place.? No hydronephrosis or hydroureter.? Previous PET-CT finding of hypermetabolic and slightly exophytic mass involving posterior lateral cortex of upper pole left kidney is not significantly changed series 12, image 59 and measures approximately 1.4 x 1.8 cm in size. ? Peritoneum and bowel:? There is no bowel obstruction.? No abnormal bowel wall thickening or mesenteric fat stranding.? No abscess collection.? No free fluid or free air. ? Nodes and vessels:? There is massive retroperitoneal lymphadenopathy centered at the level of kidney measures up to 10 x 9.9 cm in largest AP and transverse dimension compared to 8.6 cm in largest AP diameter an mora on recent PET-CT scan series 12, image 64 .? The retroperitoneal lymphadenopathy now measures 13 cm in craniocaudal dimension compared to 11 cm on PET-CT scan series 14 image 30. The tumor mass is seen encasing abdominal aorta and IVC with heterogeneous density.? Soft tissue densities are noted scattered in mid to right lower quadrant mesentery measures up to 1.7 x 1.3 cm in size series 12, image 67 concerning for mesenteric lymph nodes lymphadenopathy.? 1.3 x 1.8 cm soft tissue density nodule is seen in right lower quadrant inferior to right hepatic lobe series 12, image 72. There is encasement of the left ureter from above-mentioned retroperitoneal mass.? Abdominal aorta and IVC are normal in size. ? Miscellaneous:? No ventral hernias.? ? ? PELVIS:? Genitourinary:? Bladder wall thickness is normal.? ? Miscellaneous:? No inguinal hernias or adenopathy.? ? Bones:? No suspicious bony lesions.? No vertebral body compression fractures.? ? IMPRESSION:? 1. Interval further increase in size of patient's known hypermetabolic retroperitoneal mass consistent with lymphoma.? There is encasement of left ureter and abdominal aorta.? 2. Interval development of mesenteric soft tissue density nodules suggestive of mesenteric lymphadenopathy secondary to lymphoma. 3.? Hypodensities scattered in liver parenchyma mostly stable in size compared to previous studies.? Hypermetabolic areas are noted in some of these lesions consistent with liver metastatic disease. 4. Mild mediastinal lymphadenopathy concerning for lymphoma involvement. 5. Interval development of extensive ground-glass opacities scattered in bilateral lung albarado concerning for infiltrates from atypical pneumonia new since recent PET- CT scan.? Previously described pleural base nodule in lateral right hemithorax appears slightly more prominent in size and show hypermetabolic activity on previous PET-CT scan.? No significant pleural effusion.? No pneumothorax. 6. Left-sided ureteral stent in place.? No hydronephrosis.? Patient's known hypermetabolic lesion involving upper pole of left kidney is again seen and appears unchanged from recent PET-CT scan.? ? Dictated by: Gerson Terry M.D. on 01/06/2022 at 11:20? ECG Data Interpretation: Sinus rhythm at a rate of 81 No acute ischemic changes Incomplete right bundle branch block MDM Narrative Medical decision making narrative: 71-year-old woman with 3rd episode of recurrent lymphoma presents with increasing weakness confusion recent ureteral stent. Mild leukocytosis, worsening chronic anemia, mild hyponatremia and worsening chronic renal failure. Creatinine typically runs in the 1.5-1.7 range and today is 4.1. Procalcitonin is slightly elevated but she does not have a fever or other clinical complaints to suggest infectious etiology. CT scan of the brain does not suggest obvious metastatic disease. CT of the chest abdomen and pelvis shows significant progression of her lymphoma with progression in amount and density of lung nodules as well as increase in size of the known hypermetabolic retroperitoneal mass all in 1 month, comparison PET scan December 04. [address] Kearns. He recommends transfer to [facility]. High-dose steroids, consideration of palliative radiation and palliative chemotherapy will need urology and nephrology consultation. He will be available for inpatient consultation at [facility] as well. Findings reviewed with patient and her . She is amenable to this. They have not considered end of life issues and have never discussed hospice, they seem to be surprised with discussion regarding fairly rapid progression of her lymphoma. <Gerardo Hurtado MD - Last Filed: 01/07/22 23:55> Lab Data Labs: Lab Results 01/06/22 01/06/22 01/06/22 Range/Units 10:35 10:35 10:35 WBC 13.0 H (4.5-11.0) X10^3/uL RBC 2.89 L (4.0-5.2) X10^6/uL Hgb 8.3 L (12.0-16.0) g/dL Hct 24.0 L (36-46) % MCV 83.2 (80-100) fL MCH 28.8 (26-34) PG MCHC 34.6 (30-36) % RDW 15.1 H (11.6-14.8) % Plt Count 343 (150-400) X10^3/uL Neut % (Auto) 93.8 H (50-75) % Lymph % (Auto) 1.0 L (25-40) % [place] % (Auto) 3.9 (3-14) % Eos % (Auto) 0.9 L (2-4) % Baso % (Auto) 0.4 (0-2) % Neut # (Auto) 53949 H (9946-1682) /uL Lymph # (Auto) 100 L (5287-6255) /uL [place] # (Auto) 500 (0-900) /uL Eos # (Auto) 100 (0-450) /uL Baso # (Auto) 100 (0-100) /uL Sodium 127 L (137-145) mmol/L Potassium 4.3 (3.4-5.1) mmol/L Chloride 96 L (98-107) mmol/L Carbon Dioxide 18 L (22-32) mmol/L BUN 64 H (7-17) mg/dL Creatinine 4.11 H (0.52-1.04) mg/dL Estimated GFR 11 L (>60) mL/min BUN/Creatinine Ratio 15.6 (6-22) Glucose 93 (80-110) mg/dL Lactate 1.2 (0.7-2.1) mmol/L Calcium 10.8 H (8.4-10.2) mg/dL Total Bilirubin 0.6 (0.2-1.3) mg/dL AST 54 H (14-36) IU/L ALT 40 H (<35) IU/L Alkaline Phosphatase 143 H (38-126) U/L Total Creatine Kinase (30-135) U/L CK-MB (CK-2) (<2.37) ng/mL CK-MB (CK-2) Rel Index (1.5-5.0) % Troponin I (0.01-0.034) ng/mL Total Protein 5.9 L (6.3-8.2) g/dL Albumin 3.3 L (3.5-5.0) g/dL Globulin 2.6 (1.7-4.1) g/dL Albumin/Globulin Ratio 1.3 (1.0-2.8) Lipase 61 (23-300) U/L Procalcitonin 0.81 H (<0.5) ng/mL SARS-CoV-2 (PCR) (Negative) 01/06/22 01/06/22 01/07/22 Range/Units 10:41 11:29 08:20 WBC 9.1 (4.5-11.0) X10^3/uL RBC 2.92 L (4.0-5.2) X10^6/uL Hgb 8.5 L (12.0-16.0) g/dL Hct 24.6 L (36-46) % MCV 84.4 (80-100) fL MCH 29.2 (26-34) PG MCHC 34.6 (30-36) % RDW 15.3 H (11.6-14.8) % Plt Count 368 (150-400) X10^3/uL Neut % (Auto) 96.6 H (50-75) % Lymph % (Auto) 1.5 L (25-40) % [place] % (Auto) 1.8 L (3-14) % Eos % (Auto) 0.0 L (2-4) % Baso % (Auto) 0.1 (0-2) % Neut # (Auto) 8800 H (7973-7225) /uL Lymph # (Auto) 100 L (1861-3401) /uL [place] # (Auto) 200 (0-900) /uL Eos # (Auto) 0 (0-450) /uL Baso # (Auto) 0 (0-100) /uL Sodium (137-145) mmol/L Potassium (3.4-5.1) mmol/L Chloride (98-107) mmol/L Carbon Dioxide (22-32) mmol/L BUN (7-17) mg/dL Creatinine (0.52-1.04) mg/dL Estimated GFR (>60) mL/min BUN/Creatinine Ratio (6-22) Glucose (80-110) mg/dL Lactate (0.7-2.1) mmol/L Calcium (8.4-10.2) mg/dL Total Bilirubin (0.2-1.3) mg/dL AST (14-36) IU/L ALT (<35) IU/L Alkaline Phosphatase (38-126) U/L Total Creatine Kinase 241 H (30-135) U/L CK-MB (CK-2) 5.10 H (<2.37) ng/mL CK-MB (CK-2) Rel Index 2.1 (1.5-5.0) % Troponin I 0.015 (0.01-0.034) ng/mL Total Protein (6.3-8.2) g/dL Albumin (3.5-5.0) g/dL Globulin (1.7-4.1) g/dL Albumin/Globulin Ratio (1.0-2.8) Lipase (23-300) U/L Procalcitonin (<0.5) ng/mL SARS-CoV-2 (PCR) Negative (Negative) 01/07/22 01/07/22 Range/Units 08:20 08:20 WBC (4.5-11.0) X10^3/uL RBC (4.0-5.2) X10^6/uL Hgb (12.0-16.0) g/dL Hct (36-46) % MCV (80-100) fL MCH (26-34) PG MCHC (30-36) % RDW (11.6-14.8) % Plt Count (150-400) X10^3/uL Neut % (Auto) (50-75) % Lymph % (Auto) (25-40) % [place] % (Auto) (3-14) % Eos % (Auto) (2-4) % Baso % (Auto) (0-2) % Neut # (Auto) (5813-7241) /uL Lymph # (Auto) (5090-0628) /uL [place] # (Auto) (0-900) /uL Eos # (Auto) (0-450) /uL Baso # (Auto) (0-100) /uL Sodium 129 L (137-145) mmol/L Potassium 4.6 (3.4-5.1) mmol/L Chloride 98 (98-107) mmol/L Carbon Dioxide 16 L (22-32) mmol/L BUN 69 H (7-17) mg/dL Creatinine 3.45 H (0.52-1.04) mg/dL Estimated GFR 14 L (>60) mL/min BUN/Creatinine Ratio 20.0 (6-22) Glucose 143 H (80-110) mg/dL Lactate 1.0 (0.7-2.1) mmol/L Calcium 10.3 H (8.4-10.2) mg/dL Total Bilirubin 0.5 (0.2-1.3) mg/dL AST 41 H (14-36) IU/L ALT 40 H (<35) IU/L Alkaline Phosphatase 131 H (38-126) U/L Total Creatine Kinase (30-135) U/L CK-MB (CK-2) (<2.37) ng/mL CK-MB (CK-2) Rel Index (1.5-5.0) % Troponin I (0.01-0.034) ng/mL Total Protein 5.9 L (6.3-8.2) g/dL Albumin 3.3 L (3.5-5.0) g/dL Globulin 2.6 (1.7-4.1) g/dL Albumin/Globulin Ratio 1.3 (1.0-2.8) Lipase (23-300) U/L Procalcitonin 0.61 H (<0.5) ng/mL SARS-CoV-2 (PCR) (Negative) Urine Dip Bedside Urine Glucose Negative Bedside Urine Bilirubin - Negative Bedside Urine Ketone - Negative Urine Specific Mack 1.015 Bedside Urine Occult Blood +++ Bedside Urine pH 6.0 Bedside Urine Protein +/- 15 Bedside Urine Urobilinogen - Negative Bedside Urine Nitrite - Negative Bedside Urine Leukocytes - Negative Esterase Point of care testing: Urine Dip Bedside Urine Glucose Negative Bedside Urine Bilirubin - Negative Bedside Urine Ketone - Negative Urine Specific Mack 1.015 Bedside Urine Occult Blood +++ Bedside Urine pH 6.0 Bedside Urine Protein +/- 15 Bedside Urine Urobilinogen - Negative Bedside Urine Nitrite - Negative Bedside Urine Leukocytes - Negative Esterase <Bettye Power, DO - Last Filed: 01/07/22 18:56> Lab Data Labs: Lab Results 01/06/22 01/06/22 01/06/22 Range/Units 10:35 10:35 10:35 WBC 13.0 H (4.5-11.0) X10^3/uL RBC 2.89 L (4.0-5.2) X10^6/uL Hgb 8.3 L (12.0-16.0) g/dL Hct 24.0 L (36-46) % MCV 83.2 (80-100) fL MCH 28.8 (26-34) PG MCHC 34.6 (30-36) % RDW 15.1 H (11.6-14.8) % Plt Count 343 (150-400) X10^3/uL Neut % (Auto) 93.8 H (50-75) % Lymph % (Auto) 1.0 L (25-40) % [place] % (Auto) 3.9 (3-14) % Eos % (Auto) 0.9 L (2-4) % Baso % (Auto) 0.4 (0-2) % Neut # (Auto) 20505 H (0000-4279) /uL Lymph # (Auto) 100 L (7971-9685) /uL [place] # (Auto) 500 (0-900) /uL Eos # (Auto) 100 (0-450) /uL Baso # (Auto) 100 (0-100) /uL Sodium 127 L (137-145) mmol/L Potassium 4.3 (3.4-5.1) mmol/L Chloride 96 L (98-107) mmol/L Carbon Dioxide 18 L (22-32) mmol/L BUN 64 H (7-17) mg/dL Creatinine 4.11 H (0.52-1.04) mg/dL Estimated GFR 11 L (>60) mL/min BUN/Creatinine Ratio 15.6 (6-22) Glucose 93 (80-110) mg/dL Lactate 1.2 (0.7-2.1) mmol/L Calcium 10.8 H (8.4-10.2) mg/dL Total Bilirubin 0.6 (0.2-1.3) mg/dL AST 54 H (14-36) IU/L ALT 40 H (<35) IU/L Alkaline Phosphatase 143 H (38-126) U/L Total Creatine Kinase (30-135) U/L CK-MB (CK-2) (<2.37) ng/mL CK-MB (CK-2) Rel Index (1.5-5.0) % Troponin I (0.01-0.034) ng/mL Total Protein 5.9 L (6.3-8.2) g/dL Albumin 3.3 L (3.5-5.0) g/dL Globulin 2.6 (1.7-4.1) g/dL Albumin/Globulin Ratio 1.3 (1.0-2.8) Lipase 61 (23-300) U/L Procalcitonin 0.81 H (<0.5) ng/mL SARS-CoV-2 (PCR) (Negative) 01/06/22 01/06/22 01/07/22 Range/Units 10:41 11:29 08:20 WBC 9.1 (4.5-11.0) X10^3/uL RBC 2.92 L (4.0-5.2) X10^6/uL Hgb 8.5 L (12.0-16.0) g/dL Hct 24.6 L (36-46) % MCV 84.4 (80-100) fL MCH 29.2 (26-34) PG MCHC 34.6 (30-36) % RDW 15.3 H (11.6-14.8) % Plt Count 368 (150-400) X10^3/uL Neut % (Auto) 96.6 H (50-75) % Lymph % (Auto) 1.5 L (25-40) % [place] % (Auto) 1.8 L (3-14) % Eos % (Auto) 0.0 L (2-4) % Baso % (Auto) 0.1 (0-2) % Neut # (Auto) 8800 H (8649-9515) /uL Lymph # (Auto) 100 L (5840-8174) /uL [place] # (Auto) 200 (0-900) /uL Eos # (Auto) 0 (0-450) /uL Baso # (Auto) 0 (0-100) /uL Sodium (137-145) mmol/L Potassium (3.4-5.1) mmol/L Chloride (98-107) mmol/L Carbon Dioxide (22-32) mmol/L BUN (7-17) mg/dL Creatinine (0.52-1.04) mg/dL Estimated GFR (>60) mL/min BUN/Creatinine Ratio (6-22) Glucose (80-110) mg/dL Lactate (0.7-2.1) mmol/L Calcium (8.4-10.2) mg/dL Total Bilirubin (0.2-1.3) mg/dL AST (14-36) IU/L ALT (<35) IU/L Alkaline Phosphatase (38-126) U/L Total Creatine Kinase 241 H (30-135) U/L CK-MB (CK-2) 5.10 H (<2.37) ng/mL CK-MB (CK-2) Rel Index 2.1 (1.5-5.0) % Troponin I 0.015 (0.01-0.034) ng/mL Total Protein (6.3-8.2) g/dL Albumin (3.5-5.0) g/dL Globulin (1.7-4.1) g/dL Albumin/Globulin Ratio (1.0-2.8) Lipase (23-300) U/L Procalcitonin (<0.5) ng/mL SARS-CoV-2 (PCR) Negative (Negative) 01/07/22 01/07/22 Range/Units 08:20 08:20 WBC (4.5-11.0) X10^3/uL RBC (4.0-5.2) X10^6/uL Hgb (12.0-16.0) g/dL Hct (36-46) % MCV (80-100) fL MCH (26-34) PG MCHC (30-36) % RDW (11.6-14.8) % Plt Count (150-400) X10^3/uL Neut % (Auto) (50-75) % Lymph % (Auto) (25-40) % [place] % (Auto) (3-14) % Eos % (Auto) (2-4) % Baso % (Auto) (0-2) % Neut # (Auto) (8371-9008) /uL Lymph # (Auto) (7959-1305) /uL [place] # (Auto) (0-900) /uL Eos # (Auto) (0-450) /uL Baso # (Auto) (0-100) /uL Sodium 129 L (137-145) mmol/L Potassium 4.6 (3.4-5.1) mmol/L Chloride 98 (98-107) mmol/L Carbon Dioxide 16 L (22-32) mmol/L BUN 69 H (7-17) mg/dL Creatinine 3.45 H (0.52-1.04) mg/dL Estimated GFR 14 L (>60) mL/min BUN/Creatinine Ratio 20.0 (6-22) Glucose 143 H (80-110) mg/dL Lactate 1.0 (0.7-2.1) mmol/L Calcium 10.3 H (8.4-10.2) mg/dL Total Bilirubin 0.5 (0.2-1.3) mg/dL AST 41 H (14-36) IU/L ALT 40 H (<35) IU/L Alkaline Phosphatase 131 H (38-126) U/L Total Creatine Kinase (30-135) U/L CK-MB (CK-2) (<2.37) ng/mL CK-MB (CK-2) Rel Index (1.5-5.0) % Troponin I (0.01-0.034) ng/mL Total Protein 5.9 L (6.3-8.2) g/dL Albumin 3.3 L (3.5-5.0) g/dL Globulin 2.6 (1.7-4.1) g/dL Albumin/Globulin Ratio 1.3 (1.0-2.8) Lipase (23-300) U/L Procalcitonin 0.61 H (<0.5) ng/mL SARS-CoV-2 (PCR) (Negative) Urine Dip Bedside Urine Glucose Negative Bedside Urine Bilirubin - Negative Bedside Urine Ketone - Negative Urine Specific Mack 1.015 Bedside Urine Occult Blood +++ Bedside Urine pH 6.0 Bedside Urine Protein +/- 15 Bedside Urine Urobilinogen - Negative Bedside Urine Nitrite - Negative Bedside Urine Leukocytes - Negative Esterase Point of care testing: Urine Dip Bedside Urine Glucose Negative Bedside Urine Bilirubin - Negative Bedside Urine Ketone - Negative Urine Specific Mack 1.015 Bedside Urine Occult Blood +++ Bedside Urine pH 6.0 Bedside Urine Protein +/- 15 Bedside Urine Urobilinogen - Negative Bedside Urine Nitrite - Negative Bedside Urine Leukocytes - Negative Esterase [facility] Narrative Medical decision making narrative: 71-year-old woman with 3rd episode of recurrent lymphoma presents with increasing weakness confusion recent ureteral stent. Mild leukocytosis, worsening chronic anemia, mild hyponatremia and worsening chronic renal failure. Creatinine typically runs in the 1.5-1.7 range and today is 4.1. Procalcitonin is slightly elevated but she does not have a fever or other clinical complaints to suggest infectious etiology. CT scan of the brain does not suggest obvious metastatic disease. CT of the chest abdomen and pelvis shows significant progression of her lymphoma with progression in amount and density of lung nodules as well as increase in size of the known hypermetabolic retroperitoneal mass all in 1 month, comparison PET scan December 04. [address] Kearns. He recommends transfer to [facility]. High-dose steroids, consideration of palliative radiation and palliative chemotherapy will need urology and nephrology consultation. He will be available for inpatient consultation at [facility] as well. Findings revie wed with patient and her . She is amenable to this. They have not considered end of life issues and have never discussed hospice, they seem to be surprised with discussion regarding fairly rapid progression of her lymphoma. 01/07/22- leif Patient signed out to me of seen and evaluated patient myself. She is having increasing weakness is, she has new acute renal failure with non-Hodgkin's lymphoma. Dr. Galdamez placed left ureteral stent on 11/27/2021. Today presenting with falls and weakness. New onset renal failure creatinine today is for 5 days ago she had a creatinine of 1.7 which is her baseline. Mild elevation in procalcitonin but unsure where infection is. GENERAL: Alert 71-year-old female mildly confused but able to provide history and follow commands CARDIOVASCULAR: peripheral pulses in tact, cap refill <2 sec RESPIRATORY: No respiratory distress, speaks in full sentences without difficulty EXTREMITIES: Normal range of motion, no clubbing or edema. Neurovascularly intact NEUROLOGICAL: Cranial nerves II through XII grossly intact. Lower extremities are extremely weak and shaky both of them drift quickly down. Arms are also shaky but slightly stronger. SKIN: Warm, dry, no petechiae, no rashes or lesions. A/P 1. Non-Hodgkin's lymphoma -increased size of retroperitoneal mass with encasement of the left ureter and abdominal aorta 2. JOSEP -possibly from mass effect on left urter Dr Smyth consult in regards to kidney failure and left ureteral stent. At this time might need a percutaneous drainage which is not done at this hospital need Interventional Radiology. Recommend continuing to pursue transfer to [facility] Dr. Vernon-hospitalist at [facility] recommends talk urology and interventional radiology before he accepts Dr George, radiology has been updated patient's symptoms test results at this time there is no left hydronephrosis no need for urgent or emergent percutaneous drainage. After further review of the chart Dr. Herr the oncologist recommended transfer for high-dose steroid and consideration for palliative chemotherapy and radiation. The patient's renal function is actually improving slightly. However she room remains extremely weak legs are shaking. Unable to walk. She has an unsafe discharge. We are unable to provide any of the services for her here and therefore requires transfer to another facility. Dr. Vernon accepts patient. <Bettye Power DO - Last Filed: 01/07/22 18:56> Critical Care Time Critical Care Time: Yes Total Critical Care Time: 32 Attestation: The high probability of a clinically significant, sudden or life threatening deterioration of the [cardiovascular] system(s) required my full and direct attention, intervention and personal management. The aggregate critical care time was 32 minutes. This time is in addition to time spent performing reported procedures but includes the following: [x] Data Review and interpretation [x] Patient assessment and monitoring of vital signs [x] Documentation [x] Medication orders and management Discharge Plan Departure Patient Disposition: [facility] Clinical Impression: Acute kidney injury, Weakness Non-Hodgkin lymphoma Qualifiers: Non-Hodgkin lymphoma type: follicular Follicular lymphoma type: unspecified follicular type Prescriptions: No Action imipramine HCl [Tofranil] 50 MG tablet 50 mg PO Q DAY Qty: 0 Rx Instructions: Takes at bedtime carvedilol 12.5 mg Tablet 12.5 mg PO BID Label Comments: states she missed her evening dose last night and am dose this morning Rx Instructions: must administer with a meal/food sertraline 100 mg Tablet 100 mg PO DAILY amlodipine [Norvasc] 2.5 mg Tablet 2.5 mg PO DAILY lorazepam 0.5 mg Tablet 0.5 mg PO BEDTIME PRN (Reason: Sleep, anxiety) Qty: 30 0RF oxycodone 10 mg Tablet 10 mg PO Q6H PRN (Reason: cancer pain) Qty: 60 0RF Rx Instructions: 1 pill by mouth every 6 hours on an as-needed basis gabapentin 100 mg capsule 100 mg PO BEDTIME Referrals: Ana Marie PA-C [Primary Care Provider] - ED Sign-out <Tisha Arroyo MD - Last Filed: 01/11/22 17:59> Cosign ED Attending Cosannetteature Attestation: I was immediately available in the department for consultation throughout this patient's visit. I agree with documentation as above. Tisha Arroyo MD
--- NOTE | 2022-01-06 11:12 | DI.RAD.S_ITS ---
PROCEDURE: XR KNEE LT 3V INDICATIONS: fall TECHNIQUE: 3 views of the knee were acquired. COMPARISON: None. FINDINGS: Bones: No fractures or dislocations. No suspicious bony lesions. Soft tissues: No joint effusion. No suspicious soft tissue calcifications. IMPRESSION: Unremarkable left knee radiographs Approved by: Denny Hughes M.D. on 01/06/2022 at 11:23
[2022-01-06 11:15] LABS: Procalcitonin 0.81 ng/mL (<0.5)
[2022-01-06 11:38] LABS: Creatine Kinase 241 U/L (30-135)
[2022-01-06 11:51] LABS: Troponin I 0.015 ng/mL (0.01-0.034)
[2022-01-06 11:54] LABS: CKMB % Relative Index 2.1 % (1.5-5.0)
[2022-01-06] MEDS: methylPREDNISolone 125 MG/2 ML VIAL IV (15:27)
--- NOTE | 2022-01-06 17:02 | PC.NURSE ---
We faxed doctor notes to [facility], they are full tonight but are expecting to admit patient tomorrow for continuity of care with Dr. Kearns
[2022-01-06] MEDS: IMIPRAMINE HCL 25 MG TABLET 50 MG PO (21:04)
[2022-01-06] MEDS: GABAPENTIN 100 MG CAPSULE PO (21:04)
[2022-01-07] VITALS (40 sets, daily range): BP systolic 124–165; BP diastolic 58–80; PULSE 68–101; RESP 11–25; O2SAT 92–97
[2022-01-07 08:41] LABS: Add Manual Diff / Slide Review NO; Basophils Absolute Auto 0 /uL (0-100); Basophils Percent Auto 0.1 % (0-2); Eosinophils Absolute Auto 0 /uL (0-450); Hematocrit 24.6 % (36-46); Hemoglobin 8.5 g/dL (12.0-16.0); Lymphocytes Absolute Auto 100 /uL (1100-4500); Lymphocytes Percent Auto 1.5 % (25-40); Mean Corpuscular HGB Conc 34.6 % (30-36); Mean Corpuscular Hemoglobin 29.2 PG (26-34); Mean Corpuscular Volume 84.4 fL (80-100); Monocytes Absolute Auto 200 /uL (0-900); Monocytes Percent Auto 1.8 % (3-14); Neutrophils Absolute Auto 8800 /uL (1500-7000); Neutrophils Percent Auto 96.6 % (50-75); Platelet Count 368 X10^3/uL (150-400); Red Blood Cell Count 2.92 X10^6/uL (4.0-5.2); Red Cell Distribution Width 15.3 % (11.6-14.8); White Blood Cell Count 9.1 X10^3/uL (4.5-11.0)
[2022-01-07 08:43] LABS: Alanine Aminotransferase 40 IU/L (<35); Albumin 3.3 g/dL (3.5-5.0); Albumin Globulin Ratio 1.3 (1.0-2.8); Alkaline Phosphatase 131 U/L (38-126); Aspartate Aminotransferase 41 IU/L (14-36); Bilirubin Total 0.5 mg/dL (0.2-1.3); Blood Urea Nitrogen 69 mg/dL (7-17); Calcium 10.3 mg/dL (8.4-10.2); Carbon Dioxide 16 mmol/L (22-32); Chloride 98 mmol/L (98-107); Estimated Glomerular Filt Rate 14 mL/min (>60); Globulin 2.6 g/dL (1.7-4.1); Glucose 143 mg/dL (80-110); HEMOLYSIS < 15 (0-50); Potassium 4.6 mmol/L (3.4-5.1); Sodium 129 mmol/L (137-145); Total Protein 5.9 g/dL (6.3-8.2)
[2022-01-07] MEDS: SODIUM CHLORIDE 0.9% 1,000 ML 150 ML IV (08:57)
[2022-01-07] MEDS: cefTRIAXone 2,000 MG in SODIUM CHLORIDE 0.9% 100 ML 200 MG IV (08:57)
[2022-01-07 08:59] LABS: Procalcitonin 0.61 ng/mL (<0.5)
[2022-01-07] MEDS: SERTRALINE 50 MG TABLET 100 MG PO (10:27)
[2022-01-07] MEDS: FLUCONAZOLE 100 MG TABLET PO (10:38)
[2022-01-07] MEDS: carvediloL 12.5 MG TABLET PO (10:38)
--- NOTE | 2022-01-07 16:18 | PC.NURSE ---
Pt left with NS infusing at 150 mls/hr with transfer RN crew. Provider aware.
== END 2022-01-07 16:22 | disposition short-term general hospital (02) ==
PROVIDERS: Emergency Medicine; Emergency Provider Emergency Medicine; Family Provider Internal Medicine; PCP Physician Assistant
DX: C85.90 Non-Hodgkin lymphoma, unspecified, unspecified site (principal); N17.9 Acute kidney failure, unspecified; R53.1 Weakness; R29.6 Repeated falls; Z20.822 Contact with and (suspected) exposure to COVID-19
CPT/HCPCS: 36415; 70450; 70490; 71045; 71250; 73562; 74176; 80053; 81003; 82550; 82553; 83605; 83690; 84145; 84484; 85025; 87040; 87635; 93005; 93010; 96361; 96365; 96375; 99285; 99291; C9803; J0696; J2930

== ENCOUNTER → 2022-01-13 15:52 | Outpatient (CLI) | payer MEDICARE, OTHER, SELFPAY ==
--- NOTE | 2022-01-13 15:54 | DI.ECHO.S_ITS ---
[place] [facility]---------[facility] +---------+ : : [address] : : : : [id number] : : : : Phone: [phone] Echocardiogram Report + + :Name: BLANCA DIAZ Study Date: 01/13/2022 Height: 60 in : [facility] Weight: 154 lb : : Gender: Female BSA: 1.7 m2 : :: 1950 Age: 71 yrs BP: 180/100 mmHg: :Reason For Study: CARDIOTOXIC CHEMOTHERAPY : :Ordering Physician: SHANA, : :LORIE Performed By: Ramona Mueller : :Referring: LORIE SALDANA : + + Interpretation Summary The ejection fraction is estimated to be 60-65%. Left ventricular global longitudinal strain average is -17.4%. Diastolic function is indeterminate. The right ventricle is normal in size and function. There is mild mitral regurgitation. There is trace aortic regurgitation. Pulmonary artery pressures cannot be estimated because of the lack of a measurable TR jet velocity. Procedure: A two-dimensional transthoracic echocardiogram with color flow and Doppler was performed. The study quality was technically adequate. There is no prior echocardiogram noted for this patient. The patient was in sinus rhythm with heart rates between 89-92 bpm during the exam. Left Ventricle: The left ventricle is normal in size and wall thickness. The ejection fraction is estimated to be 60-65%. Left ventricular global longitudinal strain average is -17.4%. Diastolic function is indeterminate. Right Ventricle: The right ventricle is normal in size and function. Atria: Both atria are normal in size. There is no Doppler evidence for an interatrial shunt. Mitral Valve: The mitral valve leaflets appear mildly thickened, but open well. There is mild mitral annular calcification. There is mild mitral regurgitation. Aortic Valve: The aortic valve is trileaflet. The aortic valve opens well. There is no aortic valve stenosis. There is trace aortic regurgitation. Tricuspid Valve: The tricuspid valve is normal in structure and function. There is trace tricuspid regurgitation. Pulmonary artery pressures cannot be estimated because of the lack of a measurable TR jet velocity. Pulmonic Valve: The pulmonic valve is not well visualized. There is no pulmonic valvular regurgitation. Great Vessels: The aortic root is normal size. The dimensions of the ascending aorta are normal. The IVC is of normal diameter and collapses greater than 50% with a sniff. This suggests a low right atrial pressure of 3 mm Hg. Pericardium/ Pleura There is no pericardial effusion. There is no pleural effusion. MMode/2D Measurements & Calculations LVIDd: 4.7 cm LVOT diam: 1.9 cm LVIDs: 3.1 cm Ao root diam: 2.7 cm FS: 34.4 % asc Aorta Diam: 3.0 cm EPSS: 0.76 cm Ao Arch Diam (Prox Trans): 2.7 cm IVSd: 0.85 cm LVPWd: 0.93 cm LV connell. diameter/BSA (cm/m^2): 2.8 LV sys. diameter/BSA (cm/m^2): 1.8 LA A2 area: 16.9 cm2 RA long axis: 4.1 cm LA A4 area: 12.9 cm2 RA area: 10.2 cm2 LA length (vol): 3.8 cm RA vol: 21.9 ml LA vol: 48.4 ml RA : 13.1 ml/m2 LA vol index: 29.0 ml/m2 IVC diam: 0.44 cm TAPSE: 2.3 cm Doppler Measurements & Calculations Ao V2 max: 172.1 cm/sec LVOT Max Rad: 110.2 cm/sec Ao V2 mean: 96.0 cm/sec LV V1 max P.9 mmHg Ao max P.9 mmHg LV V1 VTI: 21.4 cm Ao mean P.6 mmHg JESSICA(I,D): 2.2 cm2 Ao V2 VTI: 27.4 cm JESSICA(V,D): 1.8 cm2 sev ratio: 0.78 JESSICA indexed to BSA (cm^2/m^2): 1.3 MV E max rad: 92.9 cm/sec TR max rad: 270.6 cm/sec MV A max rad: 105.5 cm/sec TR max P.3 mmHg MV E/A: 0.88 PA V2 max: 107.5 cm/sec Med Peak E' Rad: 4.8 cm/sec PA V2 mean: 74.5 cm/sec E/E' med: 19.2 PA mean P.5 mmHg Lat Peak E' Rad: 8.1 cm/sec PA pr(Accel): 24.2 mmHg E/E' lat: 11.4 E/e' average: 15.3 MV dec time: 0.18 sec [facility] 61.2 ml Reading Physician:05:32 PM
== END ==
PROVIDERS: Family Provider Internal Medicine; PCP Physician Assistant; Referring Provider Internal Medicine Hematology & Oncology; Visit Provider Internal Medicine Hematology & Oncology
DX: C85.90 Non-Hodgkin lymphoma, unspecified, unspecified site (principal); I34.0 Nonrheumatic mitral (valve) insufficiency; Z51.81 Encounter for therapeutic drug level monitoring; Z92.21 Personal history of antineoplastic chemotherapy
CPT/HCPCS: 93306; 93356

== ENCOUNTER → 2022-01-15 08:59 | Outpatient (CLI) | payer MEDICARE, OTHER, SELFPAY ==
--- NOTE | 2022-01-15 09:05 | DI.RAD.S_ITS ---
PROCEDURE: FL GUIDED PICC PLACEMENT INDICATIONS: Non-Hodgkin lymphoma/placement for chemo infusion COMPARISON: None. FINDINGS: PICC was placed by the intravenous therap. y team from the left side. Fluoroscopic spot film demonstrates the tip of PICC projecting to the area of mid SVC. IMPRESSION: Tip of PICC projects to the area of mid SVC Dictated by: Gabe Baeza M.D. on 01/15/2022 at 10:15 Approved by: Gabe Baeza M.D. on 01/15/2022 at 10:15
== END ==
PROVIDERS: Family Provider Internal Medicine; PCP Physician Assistant; Referring Provider Internal Medicine Hematology & Oncology; Visit Provider Internal Medicine Hematology & Oncology
DX: C85.90 Non-Hodgkin lymphoma, unspecified, unspecified site (principal); Z45.2 Encounter for adjustment and management of vascular access device
CPT/HCPCS: 36573

== ENCOUNTER → 2022-01-20 12:42 | Outpatient (CLI) | payer MEDICARE, OTHER, SELFPAY ==
--- NOTE | 2022-01-20 12:44 | DI.US.S_ITS ---
LIMITED ULTRASOUND OF LEFT BREAST: 01/20/2022 CLINICAL: Patient returns for a 6 month follow up of the left breast. Comparison is made to exams dated: 02/21/2021 ultrasound, 02/21/2021 mammogram, 01/29/2021 mammogram, 07/12/2017 mammogram, 07/13/2007 mammogram, and 12/22/2005 mammogram - [facility]. Color flow and real-time ultrasound of the left breast 4 o'clock region were performed. [place]amo scale images of the real-time examination were reviewed. There is a 1.4 cm x 1.2 cm x 1.1 cm oval cyst with debris with a smooth internal wall in the left breast at 5 o'clock anterior depth 3 cm from the nipple. This oval cyst with debris is hypoechoic with a well-defined boundary, internal echoes, and posterior acoustic enhancement. This abnormality is not significantly changed and correlates with mammography findings. Color flow imaging demonstrates that there is no vascularity present. There is a decompressed adjacent 0.3 cm complicated cyst. There also is a 0.6 cm x 0.5 cm x 0.3 cm cluster of irregular micro cysts in the left breast central to the nipple anterior depth 2 cm from the nipple. This cluster of irregular micro cysts displays posterior acoustic enhancement. Color flow imaging demonstrates that there is no vascularity present. IMPRESSION: PROBABLY BENIGN The 1.4 cm oval cyst with debris in the left breast at 5 o'clock anterior depth most likely is a complicated cyst and is probably benign. The adjacent complicated cyst has decreased in size. The 0.6 cm x 0.5 cm x 0.3 cm cluster of irregular micro cysts in the left breast central to the nipple anterior depth most likely is fibrocystic tissue, apocrine metaplasia or a complicated cyst and is probably benign. A follow-up left ultrasound in 6 months is recommended to demonstrate stability. Findings and recommendations were conveyed to the patient at time of exam. This exam was interpreted at Station ID: [id number]. Electronically Signed By: Alicia plummer/:01/20/2022 13:25:31 letter sent: Followup Recommended Ultrasound BI-RADS: 3 Probably benign
== END ==
PROVIDERS: Family Provider Internal Medicine; PCP Physician Assistant; Referring Provider Internal Medicine Hematology & Oncology; Visit Provider Internal Medicine Hematology & Oncology
DX: R92.8 Other abnormal and inconclusive findings on diagnostic imaging of breast (principal); C85.90 Non-Hodgkin lymphoma, unspecified, unspecified site; N60.02 Solitary cyst of left breast; Z98.890 Other specified postprocedural states
CPT/HCPCS: 76642

== ENCOUNTER 2022-01-21 09:17 | Emergency (ER) | payer MEDICARE, OTHER, SELFPAY ==
[2022-01-21] VITALS (31 sets, daily range): BP systolic 110–209; BP diastolic 66–110; PULSE 86–104; RESP 13–24; TEMP 36.7; O2SAT 96–100; BMI 27.3
--- NOTE | 2022-01-21 09:33 | ED.WEAKNESS ---
HPI - Weakness <Bettye Power, DO - Last Filed: 01/22/22 09:19> General Chief complaint: Weakness Stated complaint: Cancer complications Time Seen by Provider: 01/21/22 09:24 History of Present Illness HPI Narrative: Patient is a 71 year old female who has diffuse large B-cell lymphoma received her 1st cycle of R-CHOP, none 01/19/2022. Her prednisone has been decreased from 100 mg test 60 mg. She has been having symptoms of tumor lysis syndrome including nausea, loss of appetite severe anxiety. Apparently they also cut down her Ativan. She actually denies any pain. She was seen evaluated in this emergency department on 01/06/2022 at that time she was found to have worsening renal failure increasing weakness. She was sent to [facility] for palliative continuity of care. They she is mildly confused generally weak and complains of thirst and hunger. Denies any chest pain shortness of breath abdominal pain or other symptoms. Both report no fever. Related Data Home Medications Medication Instructions Recorded Confirmed imipramine HCl 50 mg tablet 50 mg PO Q DAY ##0 12/01/12 01/21/22 (Tofranil) carvedilol 12.5 mg tablet 12.5 mg PO BID 04/24/21 01/21/22 amlodipine 2.5 mg tablet (Norvasc) 2.5 mg PO DAILY 07/24/21 01/21/22 sertraline 100 mg tablet 100 mg PO DAILY 07/24/21 01/21/22 gabapentin 100 mg capsule 100 mg PO BEDTIME 11/21/21 01/21/22 Previous Rx's Medication Instructions Recorded lorazepam 0.5 mg tablet 0.5 mg PO BEDTIME PRN Sleep, 12/25/21 anxiety #30 tabs oxycodone 10 mg tablet 10 mg PO Q6H PRN cancer pain #60 01/01/22 tabs prednisone 20 mg tablet 60 mg PO DIRECTED #30 tabs 01/12/22 prednisone 20 mg tablet 60 mg PO DIRECTED #30 tabs 01/15/22 prednisone 50 mg tablet 100 mg PO DIRECTED #60 tabs 01/15/22 prednisone 20 mg tablet See Rx Instructions .Route 01/19/22 .COMPLEX DLBCL #100 tabs Allergies Allergy/AdvReac Type Severity Reaction Status Date / Time Iodinated Contrast Media Allergy Severe Hives Verified 11/27/21 16:56 [Iodinated Contrast- Oral and IV Dye] amoxicillin Allergy Intermediate Rash Verified 11/25/21 08:05 atorvastatin Allergy Intermediate Muscle Pain Verified 11/27/21 16:56 Sulfa (Sulfonamide Allergy Intermediate Hives Verified 11/25/21 08:05 Antibiotics) Review of Systems <Bettye Power DO - Last Filed: 01/22/22 09:19> Review of Systems ROS Unobtainable: All systems reviewed & are unremarkable except as noted in HPI and below Constitutional Constitutional: Reports fatigue, Denies fever(s), Denies increased appetite, Reports lethargy and Reports weakness Eyes Eyes: Denies blurry vision Cardiovascular Cardiovascular: Denies chest pain and Denies dyspnea on exertion Respiratory Respiratory: Denies dyspnea on exertion Gastrointestinal Gastrointestinal: Reports as per HPI, Denies abdominal pain, Denies cramping and Reports nausea Genitourinary Genitourinary: Denies urinary hesitancy and Denies urinary urgency Musculoskeletal Musculoskeletal: Reports muscle weakness Integumentary/Breasts Skin/Breast: Denies rash Neurologic Neurologic: Reports weakness Endocrine Endocrine: Reports fatigue Patient History <Bettye Power DO - Last Filed: 01/22/22 09:19> Medical History Acute kidney injury Anxiety Arthritis CKD (chronic kidney disease) Diffuse lymphadenopathy Headache, migraine History of depression History of non-Hodgkin's lymphoma HLD (hyperlipidemia) HTN (hypertension) Hx of thyroid nodule Hydronephrosis, left Left renal mass Low back pain Neuropathy Panic disorder Renal mass Rheumatoid arthritis Surgical History H/O breast biopsy (~1985) History of appendectomy (~1966) History of surgery (03/03/18) History of thoracentesis Hx of lymph node biopsy (2017) Family History Mother Hypertension Stroke IBS (irritable bowel syndrome) Thyroid disease Brother Hodgkins lymphoma Grandmother Stroke Social History marital status: number of children: 2 household members: spouse Smoking Status: Never smoker alcohol intake: former Type(s) of exercise: other frequency: 5-6 times per week Smoking Status: Never smoker Substance Use Type: does not use Exam <Bettye Power DO - Last Filed: 01/22/22 09:19> Initial Vital Signs Initial Vital Signs: Vital Signs Pulse Rate 98 H 01/21/22 09:29 Blood Pressure 181/80 H 01/21/22 09:29 Pulse Oximetry 96 01/21/22 09:29 GENERAL: Alert week 71-year-old female HEENT: Head atraumatic,EOMI, pupils reactive, face symmetric, mildly dry mucous membranes CARDIOVASCULAR: Regular rate and rhythm without murmurs, rubs or gallops. RESPIRATORY: Breath sounds equal bilaterally, no wheezes rales or rhonchi. ABDOMEN: Soft, nontender. No left upper quadrant pain no right upper quadrant EXTREMITIES: Normal range of motion, no clubbing or edema. Neurovascularly intact NEUROLOGICAL: Alert and oriented x3. Bilateral lower extremity weakness SKIN: Warm, dry, no laceration, no petechiae, no rashes or lesions. <Gildardo Azul DO - Last Filed: 01/23/22 03:35> Initial Vital Signs Initial Vital Signs: Vital Signs Pulse Rate 98 H 01/21/22 09:29 Blood Pressure 181/80 H 01/21/22 09:29 Pulse Oximetry 96 01/21/22 09:29 Course <DO Katelyn Washburn Last Filed: 01/22/22 09:19> Orders Ordered: Discontinued Medications Amlodipine Besylate (Amlodipine 5 Mg Tablet) 2.5 mg PO NOW ONE Stop: 01/22/22 07:16 Last Admin: 01/22/22 08:32 Dose: Not Given Documented By: MAICO Carvedilol (Carvedilol 12.5 Mg Tablet) 12.5 mg PO NOW ONE Stop: 01/22/22 07:16 Last Admin: 01/22/22 08:53 Dose: 12.5 mg Documented By: MAICO Sodium Chloride (Normal Saline 0.9%) 1,000 mls @ 150 mls/hr IV CONT MAIREL Last Admin: 01/22/22 03:04 Dose: 150 mls/hr Documented By: Infusion: 01/22/22 02:02 Dose: 150 mls/hr Documented By: Admin: 01/21/22 19:21 Dose: 150 mls/hr Documented By: Infusion: 01/21/22 10:28 Dose: 0 mls/hr Documented By: Admin: 01/21/22 09:50 Dose: 150 mls/hr Documented By: WILMAN Sodium Chloride (Normal Saline 0.9%) 1,000 mls @ 1,000 mls/hr IV BOLUS ONE Stop: 01/21/22 11:29 Last Infusion: 01/21/22 11:53 Dose: 0 mls/hr Documented By: Admin: 01/21/22 10:31 Dose: 1,000 mls/hr Documented By: MAICO Sodium Chloride (Normal Saline 0.9%) 1,000 mls @ 150 mls/hr IV CONT MARIEL Last Infusion: 01/21/22 19:21 Dose: 0 mls/hr Documented By: Admin: 01/21/22 11:53 Dose: 150 mls/hr Documented By: MAICO Rasburicase 4.5 mg/ Sodium (Chloride) 50 mls @ 100 mls/hr IV NOW ONE Stop: 01/21/22 16:17 Last Infusion: 01/21/22 17:15 Dose: 0 mls/hr Documented By: Admin: 01/21/22 16:44 Dose: 100 mls/hr Documented By: MARIANN Lorazepam (Lorazepam 2 Mg/Ml Inj) 0.5 mg IV NOW ONE Stop: 01/21/22 15:12 Last Admin: 01/21/22 15:26 Dose: 0.5 mg Documented By: UMA Methylprednisolone (Methylprednisolone 125 Mg/2 Ml Vial) 125 mg IV NOW ONE Stop: 01/21/22 10:57 Last Admin: 01/21/22 11:53 Dose: 125 mg Documented By: MAICO Potassium Chloride (Potassium Chloride 20 Meq Tab) 40 meq PO NOW ONE Stop: 01/22/22 07:16 Last Admin: 01/22/22 08:53 Dose: 40 meq Documented By: MAICO Prednisone (Prednisone 20 Mg Tablet) 60 mg PO DAILY [facility] Last Admin: 01/22/22 08:53 Dose: 60 mg Documented By: MAICO Sertraline HCl (Sertraline 50 Mg Tablet) 100 mg PO NOW ONE Stop: 01/21/22 15:21 Last Admin: 01/21/22 16:02 Dose: 100 mg Documented By: MARIANN Vital Signs Vital signs: Vital Signs - 8 hr 01/22/22 01:30 01/22/22 02:00 01/22/22 02:30 Pulse Rate 93 H 93 H 98 H Respiratory Rate 15 16 18 Blood Pressure Pulse Oximetry 100 99 98 01/22/22 03:00 01/22/22 03:30 01/22/22 03:47 Pulse Rate 91 H 90 93 H Respiratory Rate 21 18 24 Blood Pressure Pulse Oximetry 99 99 98 01/22/22 03:48 01/22/22 03:48 01/22/22 04:00 Pulse Rate 94 H Respiratory Rate 34 H Blood Pressure 203/81 H 205/80 H Pulse Oximetry 98 01/22/22 04:00 01/22/22 04:30 01/22/22 05:00 Pulse Rate 90 94 H 93 H Respiratory Rate 15 27 H 23 Blood Pressure Pulse Oximetry 98 99 98 01/22/22 05:30 01/22/22 06:00 01/22/22 06:30 Pulse Rate 88 80 84 Respiratory Rate 23 16 13 Blood Pressure Pulse Oximetry 99 97 98 01/22/22 07:00 01/22/22 07:30 01/22/22 08:00 Pulse Rate 95 H 91 H 90 Respiratory Rate 22 22 22 Blood Pressure Pulse Oximetry 98 99 99 01/22/22 08:30 Pulse Rate 96 H Respiratory Rate 22 Blood Pressure 180/89 H Pulse Oximetry 98 <Gildardo Azul DO - Last Filed: 01/23/22 03:35> Orders Ordered: Discontinued Medications Amlodipine Besylate (Amlodipine 5 Mg Tablet) 2.5 mg PO NOW ONE Stop: 01/22/22 07:16 Last Admin: 01/22/22 08:32 Dose: Not Given Documented By: MAICO Carvedilol (Carvedilol 12.5 Mg Tablet) 12.5 mg PO NOW ONE Stop: 01/22/22 07:16 Last Admin: 01/22/22 08:53 Dose: 12.5 mg Documented By: MAICO Sodium Chloride (Normal Saline 0.9%) 1,000 mls @ 150 mls/hr IV CONT MARIEL Last Admin: 01/22/22 03:04 Dose: 150 mls/hr Documented By: Infusion: 01/22/22 02:02 Dose: 150 mls/hr Documented By: Admin: 01/21/22 19:21 Dose: 150 mls/hr Documented By: Infusion: 01/21/22 10:28 Dose: 0 mls/hr Documented By: Admin: 01/21/22 09:50 Dose: 150 mls/hr Documented By: WILMAN Sodium Chloride (Normal Saline 0.9%) 1,000 mls @ 1,000 mls/hr IV BOLUS ONE Stop: 01/21/22 11:29 Last Infusion: 01/21/22 11:53 Dose: 0 mls/hr Documented By: Admin: 01/21/22 10:31 Dose: 1,000 mls/hr Documented By: MAICO Sodium Chloride (Normal Saline 0.9%) 1,000 mls @ 150 mls/hr IV CONT MARIEL Last Infusion: 01/21/22 19:21 Dose: 0 mls/hr Documented By: Admin: 01/21/22 11:53 Dose: 150 mls/hr Documented By: MAICO Rasburicase 4.5 mg/ Sodium (Chloride) 50 mls @ 100 mls/hr IV NOW ONE Stop: 01/21/22 16:17 Last Infusion: 01/21/22 17:15 Dose: 0 mls/hr Documented By: Admin: 01/21/22 16:44 Dose: 100 mls/hr Documented By: MARIANN Lorazepam (Lorazepam 2 Mg/Ml Inj) 0.5 mg IV NOW ONE Stop: 01/21/22 15:12 Last Admin: 01/21/22 15:26 Dose: 0.5 mg Documented By: UMA Methylprednisolone (Methylprednisolone 125 Mg/2 Ml Vial) 125 mg IV NOW ONE Stop: 01/21/22 10:57 Last Admin: 01/21/22 11:53 Dose: 125 mg Documented By: MAICO Potassium Chloride (Potassium Chloride 20 Meq Tab) 40 meq PO NOW ONE Stop: 01/22/22 07:16 Last Admin: 01/22/22 08:53 Dose: 40 meq Documented By: MAICO Prednisone (Prednisone 20 Mg Tablet) 60 mg PO DAILY [facility] Last Admin: 01/22/22 08:53 Dose: 60 mg Documented By: MAICO Sertraline HCl (Sertraline 50 Mg Tablet) 100 mg PO NOW ONE Stop: 01/21/22 15:21 Last Admin: 01/21/22 16:02 Dose: 100 mg Documented By: MARIANN Vital Signs Vital signs: Vital Signs - 8 hr 01/22/22 01:30 01/22/22 02:00 01/22/22 02:30 Pulse Rate 93 H 93 H 98 H Respiratory Rate 15 16 18 Blood Pressure Pulse Oximetry 100 99 98 01/22/22 03:00 01/22/22 03:30 01/22/22 03:47 Pulse Rate 91 H 90 93 H Respiratory Rate 21 18 24 Blood Pressure Pulse Oximetry 99 99 98 01/22/22 03:48 01/22/22 03:48 01/22/22 04:00 Pulse Rate 94 H Respiratory Rate 34 H Blood Pressure 203/81 H 205/80 H Pulse Oximetry 98 01/22/22 04:00 01/22/22 04:30 01/22/22 05:00 Pulse Rate 90 94 H 93 H Respiratory Rate 15 27 H 23 Blood Pressure Pulse Oximetry 98 99 98 01/22/22 05:30 01/22/22 06:00 01/22/22 06:30 Pulse Rate 88 80 84 Respiratory Rate 23 16 13 Blood Pressure Pulse Oximetry 99 97 98 01/22/22 07:00 01/22/22 07:30 01/22/22 08:00 Pulse Rate 95 H 91 H 90 Respiratory Rate 22 22 22 Blood Pressure Pulse Oximetry 98 99 99 01/22/22 08:30 Pulse Rate 96 H Respiratory Rate 22 Blood Pressure 180/89 H Pulse Oximetry 98 MDM - Weakness <Bettye Power, - Last Filed: 01/22/22 09:19> Lab Data Result diagrams: 01/22/22 06:15 01/22/22 06:15 Labs: Lab Results 01/21/22 01/21/22 01/21/22 Range/Units 09:37 09:37 09:37 WBC 46.2 H* D (4.5-11.0) X10^3/uL RBC 3.55 L (4.0-5.2) X10^6/uL Hgb 10.0 L (12.0-16.0) g/dL Hct 29.9 L (36-46) % MCV 84.0 (80-100) fL MCH 28.1 (26-34) PG MCHC 33.5 (30-36) % RDW 16.7 H (11.6-14.8) % Plt Count 211 (150-400) X10^3/uL Neut % (Auto) Not Reportable Lymph % (Auto) Not Reportable [place] % (Auto) Not Reportable Eos % (Auto) Not Reportable Baso % (Auto) Not Reportable Lymph # (Auto) Not Reportable [place] # (Auto) Not Reportable Baso # (Auto) Not Reportable Total Counted 100 Seg Neutrophils % 93.0 H (38-70) % Band Neutrophils % 4.0 (3-7) % Lymphocytes % (Manual) 2.0 L (25-45) % Monocytes % (Manual) (2-11) % Metamyelocytes % 1.0 H (-0) % Neutrophils # (Manual) 52219 H (5998-6401) /uL RBC Morphology See below Anisocytosis 1+ H Sodium 137 (137-145) mmol/L Potassium 3.2 L (3.4-5.1) mmol/L Chloride 105 (98-107) mmol/L Carbon Dioxide 22 (22-32) mmol/L BUN 49 H (7-17) mg/dL Creatinine 1.32 H (0.52-1.04) mg/dL Estimated GFR 43 L (>60) mL/min BUN/Creatinine Ratio 37.1 H (6-22) Glucose 88 (80-110) mg/dL Lactate 1.1 (0.7-2.1) mmol/L Uric Acid 11.0 H (2.5-6.2) mg/dL Calcium 8.2 L (8.4-10.2) mg/dL Phosphorus 4.7 H (2.8-4.1) mg/dL Total Bilirubin 0.9 (0.2-1.3) mg/dL AST 33 (14-36) IU/L ALT 27 (<35) IU/L Alkaline Phosphatase 109 (38-126) U/L Lactate Dehydrogenase 2520 H (313-618) U/L Total Creatine Kinase 26 L (30-135) U/L CK-MB (CK-2) TNP CK-MB (CK-2) Rel Index TNP Troponin I 0.019 (0.01-0.034) ng/mL Total Protein 5.9 L (6.3-8.2) g/dL Albumin 3.6 (3.5-5.0) g/dL Globulin 2.3 (1.7-4.1) g/dL Albumin/Globulin Ratio 1.6 (1.0-2.8) SARS-CoV-2 (PCR) (Negative) 01/21/22 01/21/22 01/21/22 Range/Units 14:05 14:45 22:36 WBC (4.5-11.0) X10^3/uL RBC (4.0-5.2) X10^6/uL Hgb (12.0-16.0) g/dL Hct (36-46) % MCV (80-100) fL MCH (26-34) PG MCHC (30-36) % RDW (11.6-14.8) % Plt Count (150-400) X10^3/uL Neut % (Auto) Lymph % (Auto) [place] % (Auto) Eos % (Auto) Baso % (Auto) Lymph # (Auto) [place] # (Auto) Baso # (Auto) Total Counted Seg Neutrophils % (38-70) % Band Neutrophils % (3-7) % Lymphocytes % (Manual) (25-45) % Monocytes % (Manual) (2-11) % Metamyelocytes % (-0) % Neutrophils # (Manual) (2230-0374) /uL RBC Morphology Anisocytosis Sodium (137-145) mmol/L Potassium (3.4-5.1) mmol/L Chloride (98-107) mmol/L Carbon Dioxide (22-32) mmol/L BUN (7-17) mg/dL Creatinine (0.52-1.04) mg/dL Estimated GFR (>60) mL/min BUN/Creatinine Ratio (6-22) Glucose (80-110) mg/dL Lactate (0.7-2.1) mmol/L Uric Acid 10.6 H 4.8 (2.5-6.2) mg/dL Calcium (8.4-10.2) mg/dL Phosphorus 3.9 4.2 H (2.8-4.1) mg/dL Total Bilirubin (0.2-1.3) mg/dL AST (14-36) IU/L ALT (<35) IU/L Alkaline Phosphatase (38-126) U/L Lactate Dehydrogenase 2330 H 2114 H (313-618) U/L Total Creatine Kinase (30-135) U/L CK-MB (CK-2) CK-MB (CK-2) Rel Index Troponin I (0.01-0.034) ng/mL Total Protein (6.3-8.2) g/dL Albumin (3.5-5.0) g/dL Globulin (1.7-4.1) g/dL Albumin/Globulin Ratio (1.0-2.8) SARS-CoV-2 (PCR) Negative (Negative) 01/22/22 01/22/22 01/22/22 Range/Units 06:15 06:15 06:15 WBC 39.6 H* (4.5-11.0) X10^3/uL RBC 3.22 L (4.0-5.2) X10^6/uL Hgb 9.0 L (12.0-16.0) g/dL Hct 27.1 L (36-46) % MCV 84.2 (80-100) fL MCH 27.9 (26-34) PG MCHC 33.2 (30-36) % RDW 16.7 H (11.6-14.8) % Plt Count 133 L (150-400) X10^3/uL Neut % (Auto) Not Reportable Lymph % (Auto) Not Reportable [place] % (Auto) Not Reportable Eos % (Auto) Not Reportable Baso % (Auto) Not Reportable Lymph # (Auto) Not Reportable [place] # (Auto) Not Reportable Baso # (Auto) Not Reportable Total Counted 100 Seg Neutrophils % 90.0 H (38-70) % Band Neutrophils % 8.0 H (3-7) % Lymphocytes % (Manual) 1.0 L (25-45) % Monocytes % (Manual) 1.0 L (2-11) % Metamyelocytes % (-0) % Neutrophils # (Manual) 10959 H (3296-6221) /uL RBC Morphology Normal morphology Anisocytosis Sodium 136 L (137-145) mmol/L Potassium 3.1 L (3.4-5.1) mmol/L Chloride 106 (98-107) mmol/L Carbon Dioxide 24 (22-32) mmol/L BUN 31 H (7-17) mg/dL Creatinine 0.89 (0.52-1.04) mg/dL Estimated GFR > 60 (>60) mL/min BUN/Creatinine Ratio 34.8 H (6-22) Glucose 96 (80-110) mg/dL Lactate (0.7-2.1) mmol/L Uric Acid 2.2 L (2.5-6.2) mg/dL Calcium 7.4 L (8.4-10.2) mg/dL Phosphorus 3.1 D (2.8-4.1) mg/dL Total Bilirubin 0.7 (0.2-1.3) mg/dL AST 25 (14-36) IU/L ALT 23 (<35) IU/L Alkaline Phosphatase 105 (38-126) U/L Lactate Dehydrogenase 2101 H (313-618) U/L Total Creatine Kinase (30-135) U/L CK-MB (CK-2) CK-MB (CK-2) Rel Index Troponin I (0.01-0.034) ng/mL Total Protein 5.1 L (6.3-8.2) g/dL Albumin 3.1 L (3.5-5.0) g/dL Globulin 2.0 (1.7-4.1) g/dL Albumin/Globulin Ratio 1.6 (1.0-2.8) SARS-CoV-2 (PCR) (Negative) Imaging Data Chest x-ray: Radiologist Impression: [address] [place] [id number] XRay Report Signed Patient: Krissy Joyner MR#: [id number] : 1950 Acct:[id number] Age/Sex: 71 / F Date of Service: 01/21/22 Loc: ED Accession Number: [id number] ?? Procedure: XR chest 1V Ordering Provider: Bettye Power D.O. PROCEDURE:? XR CHEST 1V ? INDICATIONS:? lymphoma ? TECHNIQUE:? One view of the chest was acquired.? ? COMPARISON:? [facility], CT, CT CHEST ABD PEL WO CON, 01/06/2022, 10:36.? [facility], RF, FL PICC W FLUOROGUIDE, 01/15/2022, 9:46.? [facility], CR, XR CHEST 1V, 01/06/2022, 10:35.? [facility], CR, XR CHEST 1V, 06/09/2018, 18:10. ? FINDINGS:? ? Surgical changes and devices:? Left-sided PICC with the catheter tip projecting in the region of the lower 3rd of the SVC. ? Lungs and pleura:? Lungs are clear.? No pleural effusions or pneumothorax.? ? Mediastinum:? Mediastinal contours appear unchanged.? Heart size is normal.? ? Bones and chest wall:? No suspicious bony lesions.? Overlying soft tissues appear unremarkable.? ? IMPRESSION:? Left-sided PICC with the catheter tip projecting in the region of the lower 3rd of the SVC. ? ? Dictated by: Nicanor Hendricks M.D. on 01/21/2022 at 10:28 ?? CT scan - head: Radiologist Impression: Signed Patient: Krissy Joyner MR#: [id number] : 1950 Acct:[id number] Age/Sex: 71 / F Date of Service: 01/21/22 Loc: ED Accession Number: [id number] ?? Procedure: CT head/brain wo con Ordering Provider: Bettye Power D.O. PROCEDURE:? CT HEAD/BRAIN WO CON ? INDICATIONS:? 71-year-old female with insomnia, nausea and history of lymphoma ? TECHNIQUE:? Noncontrast 5 mm thick angled axial sections acquired from the foramen magnum to the vertex, with coronal and sagittal reformats.? For radiation dose reduction, the following was used:? automated exposure control, adjustment of mA and/or kV according to patient size.? ? COMPARISON:? [facility], CT, CT HEAD/BRAIN WO CON, 01/06/2022, 10:36. ? FINDINGS:? Image quality:? Excellent.? ? CSF spaces:? Basal cisterns are patent.? No extra-axial fluid collections.? Ventricles are normal in size and shape.? ? Brain:? No midline shift.? No intracranial masses or hemorrhage.? [place]-white matter interface is normal.? Moderate cerebral and cerebellar volume loss with multifocal white matter chronic ischemic change noted.? Atherosclerotic calcification noted associated with cavernous segments of both internal carotid arteries.? Old lacunar infarct noted in the right basal ganglia ? Skull and face:? Calvarium and visualized facial bones are intact, without suspicious lesions.? ? Sinuses:? Visualized sinuses and mastoids are clear.? ? IMPRESSION:? Atrophy and ischemic change without acute hemorrhage or mass effect.? Old lacunar infarct, right basal ganglia. ? ? ? Approved by: Denny Hughes M.D. on 01/21/2022 at 9:04? MDM Narrative Medical decision making narrative: The patient is having signs symptoms concerning for tumor lysis. The blood work confirms tumor lysis with hypokalemia, elevated uric acid at 11, elevated LDH, hyperphosphatemia. Dr. Kearns, oncology recommended Rasburicase x1, pharmacy to dose. Along with IV fluids and steroids. Unfortunately we do not have this medication, Dr. Kearns, notified recommended continuing fluids and steroids is transferring as needed Patient placed on multiple transfer list unlikely to get a bed We were able to have [facility] send us the medication of 4.5 mg. The patient blood work is trending downward with IV fluids and steroids. She can remains on multiple hospitalist. Her mental status has actually improved quite a bit and is now sitting at bedside eating dinner. Briefly talk with Dr. Alvarenga, hospitalist if patient is unable to be transferred tomorrow would consider admission here. But would obviously be better off at a place with oncology. [1999] (Jorge Alberto) Patient received in sign out from [Tono]. I have reviewed the clinical course and performed an independent history and physical exam. She is resting comfortably without any specific needs at this point in time. She is aware of her diagnosis and plan and has no current questions 01/22/22 Tono Patient seen evaluated by myself this morning. Overall in good spirits blood work is reassuring. She seems back to her normal self. Blood pressure is elevated she is given her morning blood pressure medications. I spoke with Dr. Kearns morning reports that patient can follow-up as an outpatient and be discharged this morning. GENERAL: Well-appearing 69-year-old female CARDIOVASCULAR: peripheral pulses in tact, cap refill <2 sec RESPIRATORY: No respiratory distress, speaks in full sentences without difficulty EXTREMITIES: Normal range of motion, no clubbing or edema. Neurovascularly intact NEUROLOGICAL: Cranial nerves II through XII grossly intact. Normal gait and speech. SKIN: Warm, dry, no petechiae, no rashes or lesions. A/P 1. Follicular B-cell lymphoma with tumor lysis, -now resolved -continue allopurinol and prednisone -close follow-up outpatient with Dr. Kearns 2. Hypertension Patient is to discharge home with close outpatient follow-up with oncology. <Gildardo Azul DO - Last Filed: 01/23/22 03:35> Lab Data Labs: Lab Results 01/21/22 01/21/22 01/21/22 Range/Units 09:37 09:37 09:37 WBC 46.2 H* D (4.5-11.0) X10^3/uL RBC 3.55 L (4.0-5.2) X10^6/uL Hgb 10.0 L (12.0-16.0) g/dL Hct 29.9 L (36-46) % MCV 84.0 (80-100) fL MCH 28.1 (26-34) PG MCHC 33.5 (30-36) % RDW 16.7 H (11.6-14.8) % Plt Count 211 (150-400) X10^3/uL Neut % (Auto) Not Reportable Lymph % (Auto) Not Reportable [place] % (Auto) Not Reportable Eos % (Auto) Not Reportable Baso % (Auto) Not Reportable Lymph # (Auto) Not Reportable [place] # (Auto) Not Reportable Baso # (Auto) Not Reportable Total Counted 100 Seg Neutrophils % 93.0 H (38-70) % Band Neutrophils % 4.0 (3-7) % Lymphocytes % (Manual) 2.0 L (25-45) % Monocytes % (Manual) (2-11) % Metamyelocytes % 1.0 H (-0) % Neutrophils # (Manual) 58477 H (7748-4955) /uL RBC Morphology See below Anisocytosis 1+ H Sodium 137 (137-145) mmol/L Potassium 3.2 L (3.4-5.1) mmol/L Chloride 105 (98-107) mmol/L Carbon Dioxide 22 (22-32) mmol/L BUN 49 H (7-17) mg/dL Creatinine 1.32 H (0.52-1.04) mg/dL Estimated GFR 43 L (>60) mL/min BUN/Creatinine Ratio 37.1 H (6-22) Glucose 88 (80-110) mg/dL Lactate 1.1 (0.7-2.1) mmol/L Uric Acid 11.0 H (2.5-6.2) mg/dL Calcium 8.2 L (8.4-10.2) mg/dL Phosphorus 4.7 H (2.8-4.1) mg/dL Total Bilirubin 0.9 (0.2-1.3) mg/dL AST 33 (14-36) IU/L ALT 27 (<35) IU/L Alkaline Phosphatase 109 (38-126) U/L Lactate Dehydrogenase 2520 H (313-618) U/L Total Creatine Kinase 26 L (30-135) U/L CK-MB (CK-2) TNP CK-MB (CK-2) Rel Index TNP Troponin I 0.019 (0.01-0.034) ng/mL Total Protein 5.9 L (6.3-8.2) g/dL Albumin 3.6 (3.5-5.0) g/dL Globulin 2.3 (1.7-4.1) g/dL Albumin/Globulin Ratio 1.6 (1.0-2.8) SARS-CoV-2 (PCR) (Negative) 01/21/22 01/21/22 01/21/22 Range/Units 14:05 14:45 22:36 WBC (4.5-11.0) X10^3/uL RBC (4.0-5.2) X10^6/uL Hgb (12.0-16.0) g/dL Hct (36-46) % MCV (80-100) fL MCH (26-34) PG MCHC (30-36) % RDW (11.6-14.8) % Plt Count (150-400) X10^3/uL Neut % (Auto) Lymph % (Auto) [place] % (Auto) Eos % (Auto) Baso % (Auto) Lymph # (Auto) [place] # (Auto) Baso # (Auto) Total Counted Seg Neutrophils % (38-70) % Band Neutrophils % (3-7) % Lymphocytes % (Manual) (25-45) % Monocytes % (Manual) (2-11) % Metamyelocytes % (-0) % Neutrophils # (Manual) (9039-6812) /uL RBC Morphology Anisocytosis Sodium (137-145) mmol/L Potassium (3.4-5.1) mmol/L Chloride (98-107) mmol/L Carbon Dioxide (22-32) mmol/L BUN (7-17) mg/dL Creatinine (0.52-1.04) mg/dL Estimated GFR (>60) mL/min BUN/Creatinine Ratio (6-22) Glucose (80-110) mg/dL Lactate (0.7-2.1) mmol/L Uric Acid 10.6 H 4.8 (2.5-6.2) mg/dL Calcium (8.4-10.2) mg/dL Phosphorus 3.9 4.2 H (2.8-4.1) mg/dL Total Bilirubin (0.2-1.3) mg/dL AST (14-36) IU/L ALT (<35) IU/L Alkaline Phosphatase (38-126) U/L Lactate Dehydrogenase 2330 H 2114 H (313-618) U/L Total Creatine Kinase (30-135) U/L CK-MB (CK-2) CK-MB (CK-2) Rel Index Troponin I (0.01-0.034) ng/mL Total Protein (6.3-8.2) g/dL Albumin (3.5-5.0) g/dL Globulin (1.7-4.1) g/dL Albumin/Globulin Ratio (1.0-2.8) SARS-CoV-2 (PCR) Negative (Negative) 01/22/22 01/22/22 01/22/22 Range/Units 06:15 06:15 06:15 WBC 39.6 H* (4.5-11.0) X10^3/uL RBC 3.22 L (4.0-5.2) X10^6/uL Hgb 9.0 L (12.0-16.0) g/dL Hct 27.1 L (36-46) % MCV 84.2 (80-100) fL MCH 27.9 (26-34) PG MCHC 33.2 (30-36) % RDW 16.7 H (11.6-14.8) % Plt Count 133 L (150-400) X10^3/uL Neut % (Auto) Not Reportable Lymph % (Auto) Not Reportable [place] % (Auto) Not Reportable Eos % (Auto) Not Reportable Baso % (Auto) Not Reportable Lymph # (Auto) Not Reportable [place] # (Auto) Not Reportable Baso # (Auto) Not Reportable Total Counted 100 Seg Neutrophils % 90.0 H (38-70) % Band Neutrophils % 8.0 H (3-7) % Lymphocytes % (Manual) 1.0 L (25-45) % Monocytes % (Manual) 1.0 L (2-11) % Metamyelocytes % (-0) % Neutrophils # (Manual) 27936 H (7901-5693) /uL RBC Morphology Normal morphology Anisocytosis Sodium 136 L (137-145) mmol/L Potassium 3.1 L (3.4-5.1) mmol/L Chloride 106 (98-107) mmol/L Carbon Dioxide 24 (22-32) mmol/L BUN 31 H (7-17) mg/dL Creatinine 0.89 (0.52-1.04) mg/dL Estimated GFR > 60 (>60) mL/min BUN/Creatinine Ratio 34.8 H (6-22) Glucose 96 (80-110) mg/dL Lactate (0.7-2.1) mmol/L Uric Acid 2.2 L (2.5-6.2) mg/dL Calcium 7.4 L (8.4-10.2) mg/dL Phosphorus 3.1 D (2.8-4.1) mg/dL Total Bilirubin 0.7 (0.2-1.3) mg/dL AST 25 (14-36) IU/L ALT 23 (<35) IU/L Alkaline Phosphatase 105 (38-126) U/L Lactate Dehydrogenase 2101 H (313-618) U/L Total Creatine Kinase (30-135) U/L CK-MB (CK-2) CK-MB (CK-2) Rel Index Troponin I (0.01-0.034) ng/mL Total Protein 5.1 L (6.3-8.2) g/dL Albumin 3.1 L (3.5-5.0) g/dL Globulin 2.0 (1.7-4.1) g/dL Albumin/Globulin Ratio 1.6 (1.0-2.8) SARS-CoV-2 (PCR) (Negative) MDM Narrative Medical decision making narrative: The patient is having signs symptoms concerning for tumor lysis. The blood work confirms tumor lysis with hypokalemia, elevated uric acid at 11, elevated LDH, hyperphosphatemia. Dr. Kearns, oncology recommended Rasburicase x1, pharmacy to dose. Along with IV fluids and steroids. Unfortunately we do not have this medication, Dr. Kearns, notified recommended continuing fluids and steroids is transferring as needed Patient placed on multiple transfer list unlikely to get a bed We were able to have [facility] send us the medication of 4.5 mg. The patient blood work is trending downward with IV fluids and steroids. She can remains on multiple hospitalist. Her mental status has actually improved quite a bit and is now sitting at bedside eating dinner. Briefly talk with Dr. Alvarenga, hospitalist if patient is unable to be transferred tomorrow would consider admission here. But would obviously be better off at a place with oncology. [1999] (Jorge Alberto) Patient received in sign out from [Tono]. I have reviewed the clinical course and performed an independent history and physical exam. She is resting comfortably without any specific needs at this point in time. She is aware of her diagnosis and plan and has no current questions Discharge Plan Departure Patient Disposition: Home Clinical Impression: Tumor lysis syndrome Instructions: DI for Non-Hodgkin Lymphoma Activity Restrictions/Additional Instructions: *You have been diagnosed with tumor lysis syndrome *What to do: At this time continue to hydrate drink water and juice. Continue to monitor *Continue to take medications as directed-THERE ARE NO CHANGES BEFORE YOU WERE DISCHARGED YOU WERE GIVEN coreg 12.5 Potassium Chloride 40mEq Prednisone 60mg *Follow up with your primary care provider in 2-3 days or call [phone] Kearns office today to schedule follow-up appointment *Return to ER if you should have increasing confusion weakness or any new, worsening or concerning symptoms Prescriptions: No Action imipramine HCl [Tofranil] 50 MG tablet 50 mg PO Q DAY Qty: 0 Rx Instructions: Takes at bedtime carvedilol 12.5 mg Tablet 12.5 mg PO BID Label Comments: states she missed her evening dose last night and am dose this morning Rx Instructions: must administer with a meal/food sertraline 100 mg Tablet 100 mg PO DAILY amlodipine [Norvasc] 2.5 mg Tablet 2.5 mg PO DAILY lorazepam 0.5 mg Tablet 0.5 mg PO BEDTIME PRN (Reason: Sleep, anxiety) Qty: 30 0RF oxycodone 10 mg Tablet 10 mg PO Q6H PRN (Reason: cancer pain) Qty: 60 0RF Rx Instructions: 1 pill by mouth every 6 hours on an as-needed basis prednisone 20 mg Tablet 60 mg PO DIRECTED Qty: 30 0RF Rx Instructions: Take 3 tablets (60 mg) daily for 5 days on days 1-5 of each chemotherapy cycle prednisone 20 mg Tablet 60 mg PO DIRECTED Qty: 30 0RF Rx Instructions: Take 3 tablets (60 mg) daily for 5 days on days 1-5 of each chemotherapy cycle prednisone 50 mg Tablet 100 mg PO DIRECTED Qty: 60 0RF Rx Instructions: Take 100 mg daily on day 1-5 every 21 days prednisone 20 mg Tablet See Rx Instructions .ROUTE .COMPLEX Qty: 100 0RF Rx Instructions: Take 2 pills (60 mg) on days 1-5 every 21 days. gabapentin 100 mg capsule 100 mg PO BEDTIME Referrals: Ana Marie PA-C [Primary Care Provider] - Visit Report Forms: Patient Portal/API
--- NOTE | 2022-01-21 09:34 | DI.RAD.S_ITS ---
PROCEDURE: XR CHEST 1V INDICATIONS: lymphoma TECHNIQUE: One view of the chest was acquired. COMPARISON: [facility], CT, CT CHEST ABD PEL WO CON, 01/06/2022, 10:36. [facility], RF, FL PICC W FLUOROGUIDE, 01/15/2022, 9:46. [facility], CR, XR CHEST 1V, 01/06/2022, 10:35. [facility], CR, XR CHEST 1V, 06/09/2018, 18:10. FINDINGS: Surgical changes and devices: Left-sided PICC with the catheter tip projecting in the region of the lower 3rd of the SVC. Lungs and pleura: Lungs are clear. No pleural effusions or pneumothorax. Mediastinum: Mediastinal contours appear unchanged. Heart size is normal. Bones and chest wall: No suspicious bony lesions. Overlying soft tissues appear unremarkable. IMPRESSION: Left-sided PICC with the catheter tip projecting in the region of the lower 3rd of the SVC. Dictated by: Nicanor Hendricks M.D. on 01/21/2022 at 10:28 Approved by: Nicanor Hendricks M.D. on 01/21/2022 at 10:30
--- NOTE | 2022-01-21 09:48 | DI.CT.S_ITS ---
PROCEDURE: CT HEAD/BRAIN WO CON INDICATIONS: 71-year-old female with insomnia, nausea and history of lymphoma TECHNIQUE: Noncontrast 5 mm thick angled axial sections acquired from the foramen magnum to the vertex, with coronal and sagittal reformats. For radiation dose reduction, the following was used: automated exposure control, adjustment of mA and/or kV according to patient size. COMPARISON: , CT, CT HEAD/BRAIN WO CON, 01/06/2022, 10:36. FINDINGS: Image quality: Excellent. CSF spaces: Basal cisterns are patent. No extra-axial fluid collections. Ventricles are normal in size and shape. Brain: No midline shift. No intracranial masses or hemorrhage. [place]-white matter interface is normal. Moderate cerebral and cerebellar volume loss with multifocal white matter chronic ischemic change noted. Atherosclerotic calcification noted associated with cavernous segments of both internal carotid arteries. Old lacunar infarct noted in the right basal ganglia Skull and face: Calvarium and visualized facial bones are intact, without suspicious lesions. Sinuses: Visualized sinuses and mastoids are clear. IMPRESSION: Atrophy and ischemic change without acute hemorrhage or mass effect. Old lacunar infarct, right basal ganglia. Approved by: Denny Hughes M.D. on 01/21/2022 at 9:04
[2022-01-21] MEDS: SODIUM CHLORIDE 0.9% 1,000 ML 150 ML IV ×3 (09:50→19:21)
[2022-01-21 09:53] LABS: Hematocrit 29.9 % (36-46); Mean Corpuscular HGB Conc 33.5 % (30-36); Mean Corpuscular Hemoglobin 28.1 PG (26-34); Platelet Count 211 X10^3/uL (150-400); Red Blood Cell Count 3.55 X10^6/uL (4.0-5.2); Red Cell Distribution Width 16.7 % (11.6-14.8)
[2022-01-21 09:55] LABS: Add Manual Diff / Slide Review YES; White Blood Cell Count 46.2 X10^3/uL (4.5-11.0)
[2022-01-21 10:03] LABS: Lactate (Lactic Acid) 1.1 mmol/L (0.7-2.1)
[2022-01-21 10:04] LABS: Alanine Aminotransferase 27 IU/L (<35); Albumin 3.6 g/dL (3.5-5.0); Albumin Globulin Ratio 1.6 (1.0-2.8); Alkaline Phosphatase 109 U/L (38-126); Aspartate Aminotransferase 33 IU/L (14-36); BUN Creatinine Ratio 37.1 (6-22); Bilirubin Total 0.9 mg/dL (0.2-1.3); Blood Urea Nitrogen 49 mg/dL (7-17); Calcium 8.2 mg/dL (8.4-10.2); Carbon Dioxide 22 mmol/L (22-32); Chloride 105 mmol/L (98-107); Creatine Kinase 26 U/L (30-135); Estimated Glomerular Filt Rate 43 mL/min (>60); Globulin 2.3 g/dL (1.7-4.1); Glucose 88 mg/dL (80-110); HEMOLYSIS < 15 (0-50); Phosphorous 4.7 mg/dL (2.8-4.1); Potassium 3.2 mmol/L (3.4-5.1); Sodium 137 mmol/L (137-145); Total Protein 5.9 g/dL (6.3-8.2)
[2022-01-21 10:11] LABS: Lactate Dehydrogenase 2520 U/L (313-618)
[2022-01-21 10:15] LABS: Troponin I 0.019 ng/mL (0.01-0.034)
[2022-01-21 10:18] LABS: Neutrophils Absolute Manual 44814 /uL (3000-5900); Total Cells Counted 100
[2022-01-21 10:21] LABS: Anisocytosis 1+
[2022-01-21] MEDS: SODIUM CHLORIDE 0.9% 1,000 ML 1000 ML IV (10:31)
[2022-01-21] MEDS: methylPREDNISolone 125 MG/2 ML VIAL IV (11:53)
[2022-01-21 14:42] LABS: Phosphorous 3.9 mg/dL (2.8-4.1); Uric Acid 10.6 mg/dL (2.5-6.2)
[2022-01-21 14:51] LABS: Lactate Dehydrogenase 2330 U/L (313-618)
[2022-01-21] MEDS: LORazepam 2 MG/ML INJ 0.5 MG IV (15:26)
[2022-01-21 15:28] LABS: COVID19 -Nasal RAPID Negative (Negative)
[2022-01-21] MEDS: SERTRALINE 50 MG TABLET 100 MG PO (16:02)
[2022-01-21] MEDS: SODIUM CHLORIDE 0.9% IV (16:44)
[2022-01-21] MEDS: RASBURICASE IV (16:44)
[2022-01-21 22:55] LABS: Lactate Dehydrogenase 2114 U/L (313-618); Phosphorous 4.2 mg/dL (2.8-4.1); Uric Acid 4.8 mg/dL (2.5-6.2)
[2022-01-22] VITALS (20 sets, daily range): BP systolic 180–205; BP diastolic 80–89; PULSE 80–98; RESP 13–34; O2SAT 97–100
[2022-01-22] MEDS: SODIUM CHLORIDE 0.9% 1,000 ML 150 ML IV (03:04)
[2022-01-22 06:41] LABS: Hematocrit 27.1 % (36-46); Mean Corpuscular HGB Conc 33.2 % (30-36); Mean Corpuscular Hemoglobin 27.9 PG (26-34); Mean Corpuscular Volume 84.2 fL (80-100); Platelet Count 133 X10^3/uL (150-400); Red Blood Cell Count 3.22 X10^6/uL (4.0-5.2); Red Cell Distribution Width 16.7 % (11.6-14.8)
[2022-01-22 06:42] LABS: Add Manual Diff / Slide Review YES
[2022-01-22 06:44] LABS: White Blood Cell Count 39.6 X10^3/uL (4.5-11.0)
[2022-01-22 07:00] LABS: Alanine Aminotransferase 23 IU/L (<35); Albumin 3.1 g/dL (3.5-5.0); Albumin Globulin Ratio 1.6 (1.0-2.8); Alkaline Phosphatase 105 U/L (38-126); Aspartate Aminotransferase 25 IU/L (14-36); BUN Creatinine Ratio 34.8 (6-22); Bilirubin Total 0.7 mg/dL (0.2-1.3); Blood Urea Nitrogen 31 mg/dL (7-17); Calcium 7.4 mg/dL (8.4-10.2); Carbon Dioxide 24 mmol/L (22-32); Chloride 106 mmol/L (98-107); Estimated Glomerular Filt Rate > 60 mL/min (>60); Glucose 96 mg/dL (80-110); HEMOLYSIS < 15 (0-50); Phosphorous 3.1 mg/dL (2.8-4.1); Potassium 3.1 mmol/L (3.4-5.1); Sodium 136 mmol/L (137-145); Total Protein 5.1 g/dL (6.3-8.2); Uric Acid 2.2 mg/dL (2.5-6.2)
[2022-01-22 07:20] LABS: Lactate Dehydrogenase 2101 U/L (313-618)
[2022-01-22 08:16] LABS: Neutrophils Absolute Manual 38808 /uL (3000-5900); RBC Morphology Normal Morphology; Total Cells Counted 100
[2022-01-22] MEDS: POTASSIUM CHLORIDE 20 MEQ TAB 40 MEQ PO (08:53)
[2022-01-22] MEDS: predniSONE 20 MG TABLET 60 MG PO (08:53)
[2022-01-22] MEDS: carvediloL 12.5 MG TABLET PO (08:53)
--- NOTE | 2022-01-22 13:04 | ONC.MSW ---
Description: Post-ER discharge f/u Activity: Called pt/spouse to assess medical status, as well as coping/support needs. Pt continues to do very well at home this afternoon, spouse states, I finally have my back. Discussed a new time to meet and discuss/complete her advanced directives. Agreed to meet 01/27 while she is here for labs and infusion. No further needs are identified at this time.
== END 2022-01-22 08:55 | disposition home or self-care (01) ==
PROVIDERS: Emergency Provider Emergency Medicine; Family Provider Internal Medicine; PCP Physician Assistant
DX: E88.3 Tumor lysis syndrome (principal); C83.30 Diffuse large B-cell lymphoma, unspecified site; I10 Essential (primary) hypertension; G47.00 Insomnia, unspecified; E87.6 Hypokalemia; R79.89 Other specified abnormal findings of blood chemistry; Z20.822 Contact with and (suspected) exposure to COVID-19
CPT/HCPCS: 36415; 70450; 71045; 80053; 82550; 83605; 83615; 84100; 84484; 84550; 85007; 85025; 87040; 87635; 93005; 96361; 96365; 96375; 99284; C9803; J2060; J2783; J2930

== ENCOUNTER 2022-01-27 09:50 | Emergency (ER) | payer MEDICARE, OTHER, SELFPAY ==
[2022-01-27] VITALS (13 sets, daily range): BP systolic 141–194; BP diastolic 61–85; PULSE 83–105; RESP 13–32; TEMP 36.9; O2SAT 95–100
--- NOTE | 2022-01-27 10:06 | DI.RAD.S_ITS ---
PROCEDURE: XR CHEST 1V INDICATIONS: altered mental status TECHNIQUE: One view of the chest was acquired. COMPARISON: [facility], CR, XR CHEST 1V, 01/21/2022, 9:41. FINDINGS: Surgical changes and devices: Again noted is a left-sided PICC line with the tip projecting to the area of atrial caval junction. Lungs and pleura: Lungs are clear. No pleural effusions or pneumothorax. Mediastinum: Mediastinal contours appear normal. Heart size is normal. Bones and chest wall: No suspicious bony lesions. Overlying soft tissues appear unremarkable. IMPRESSION: No acute cardiopulmonary disease. Dictated by: Maurice Deleon M.D. on 01/27/2022 at 10:37 Approved by: Maurice Deleon M.D. on 01/27/2022 at 10:38
[2022-01-27 10:14] LABS: Hematocrit 27.3 % (36-46); Hemoglobin 9.4 g/dL (12.0-16.0); Mean Corpuscular HGB Conc 34.4 % (30-36); Mean Corpuscular Hemoglobin 28.4 PG (26-34); Mean Corpuscular Volume 82.6 fL (80-100); Platelet Count 63 X10^3/uL (150-400); Red Blood Cell Count 3.31 X10^6/uL (4.0-5.2); Red Cell Distribution Width 15.9 % (11.6-14.8)
[2022-01-27 10:17] LABS: Add Manual Diff / Slide Review NO; White Blood Cell Count 0.2 X10^3/uL (4.5-11.0)
[2022-01-27 10:19] LABS: Alanine Aminotransferase 20 IU/L (<35); Albumin Globulin Ratio 1.7 (1.0-2.8); Alkaline Phosphatase 111 U/L (38-126); Aspartate Aminotransferase 18 IU/L (14-36); BUN Creatinine Ratio 16.1 (6-22); Bilirubin Total 1.3 mg/dL (0.2-1.3); Blood Urea Nitrogen 18 mg/dL (7-17); Calcium 9.6 mg/dL (8.4-10.2); Carbon Dioxide 26 mmol/L (22-32); Chloride 97 mmol/L (98-107); Estimated Glomerular Filt Rate 52 mL/min (>60); Globulin 2.4 g/dL (1.7-4.1); Glucose 113 mg/dL (80-110); HEMOLYSIS < 15 (0-50); Potassium 3.4 mmol/L (3.4-5.1); Sodium 132 mmol/L (137-145); Total Protein 6.4 g/dL (6.3-8.2)
--- NOTE | 2022-01-27 10:27 | ED.AMS ---
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 She failed other interventions previously. She is been suffering from hallucinations and tumor lysis syndrome. Today she comes in because of increasing confusion and insomnia. She has an appointment at the oncology clinic this afternoon but her felt that the confusion was much worse and needed more assessment. He is concerned that she might be significantly dehydrated because of her lack of oral intake. She has not been vomiting nor has she had a fever nor diarrhea. The patient does not report any pain or any complaints currently. Related Data Home Medications Medication Instructions Recorded Confirmed imipramine HCl 50 mg tablet 50 mg PO Q DAY ##0 12/01/12 01/21/22 (Tofranil) carvedilol 12.5 mg tablet 12.5 mg PO BID 04/24/21 01/21/22 amlodipine 2.5 mg tablet (Norvasc) 2.5 mg PO DAILY 07/24/21 01/21/22 sertraline 100 mg tablet 100 mg PO DAILY 07/24/21 01/21/22 gabapentin 100 mg capsule 100 mg PO BEDTIME 11/21/21 01/21/22 Previous Rx's Medication Instructions Recorded lorazepam 0.5 mg tablet 0.5 mg PO BEDTIME PRN Sleep, 12/25/21 anxiety #30 tabs oxycodone 10 mg tablet 10 mg PO Q6H PRN cancer pain #60 01/01/22 tabs prednisone 20 mg tablet 60 mg PO DIRECTED #30 tabs 01/12/22 prednisone 20 mg tablet 60 mg PO DIRECTED #30 tabs 01/15/22 prednisone 50 mg tablet 100 mg PO DIRECTED #60 tabs 01/15/22 prednisone 20 mg tablet See Rx Instructions .Route 01/19/22 .COMPLEX DLBCL #100 tabs levofloxacin 500 mg tablet 500 mg PO DAILY 6 days #7 tabs 01/27/22 trazodone 100 mg tablet 100 mg PO BEDTIME PRN insomnia #30 01/27/22 tabs Allergies Allergy/AdvReac Type Severity Reaction Status Date / Time Iodinated Contrast Media Allergy Severe Hives Verified 11/27/21 16:56 [Iodinated Contrast- Oral and IV Dye] amoxicillin Allergy Intermediate Rash Verified 11/25/21 08:05 atorvastatin Allergy Intermediate Muscle Pain Verified 11/27/21 16:56 Sulfa (Sulfonamide Allergy Intermediate Hives Verified 11/25/21 08:05 Antibiotics) Review of Systems Review of Systems Narrative: Complete review of systems is not possible because of the patient's confusion. Patient History Medical History Acute kidney injury Anxiety Arthritis CKD (chronic kidney disease) Diffuse lymphadenopathy Headache, migraine History of depression History of non-Hodgkin's lymphoma HLD (hyperlipidemia) HTN (hypertension) Hx of thyroid nodule Hydronephrosis, left Left renal mass Low back pain Neuropathy Panic disorder Renal mass Rheumatoid arthritis Surgical History H/O breast biopsy (~1985) History of appendectomy (~1966) History of surgery (03/03/18) History of thoracentesis Hx of lymph node biopsy (2017) Family History Mother Hypertension Stroke IBS (irritable bowel syndrome) Thyroid disease Brother Hodgkins lymphoma Grandmother Stroke Social History marital status: number of children: 2 household members: spouse Smoking Status: Never smoker alcohol intake: former Type(s) of exercise: other frequency: 5-6 times per week Smoking Status: Never smoker Substance Use Type: does not use Exam Narrative Exam Narrative: GENERAL: Alert, cooperative and in no distress. HEAD: Atraumatic. Normocephalic. EYES: Sclera are clear without icterus. Extraocular movements are full. ENT: No rhinorrhea. Oropharynx is moist. Mouth exam is benign. NECK: Supple. Full range of motion. CARDIOVASCULAR: Normal rate and rhythm without murmur gallop or rub. RESPIRATORY: Clear to auscultation. Breath sounds equal bilaterally. No wheezes, rales, or rhonchi. GASTROINTESTINAL: Abdomen soft, non-tender, nondistended. EXTREMITIES: No edema, full range of motion. No obvious trauma. BACK: Normal inspection, no CVA tenderness. NEURO: Nonfocal examination, normal speech, normal gait. SKIN: No rash or erythema of visible areas PSYCH: Normally oriented. Normal range of affect. Appropriate behavior Initial Vital Signs Initial Vital Signs: Vital Signs Pulse Rate 100 H 01/27/22 09:56 Respiratory Rate 19 01/27/22 09:56 Course Orders Ordered: ED Orders 01/27/22 09:48 Prothrombin Time INR Stat 01/27/22 10:00 COVID19 -Nasal RAPID/Pre-Proc Stat 01/27/22 10:06 XR chest 1V Stat EKG-12 Lead Stat 01/27/22 10:09 Complete Blood Count AUTO DIFF Stat Comprehensive Metabolic Panel Stat 01/27/22 10:17 Ammonia (NH3) Stat Lipase Stat Magnesium Stat 01/27/22 10:33 Lactate (Lactic Acid) Stat 01/27/22 12:42 UA dip and micro [Urinalysis and Microscopic] Stat Urine Drug Screen, Rapid Stat Discontinued Medications Sodium Chloride (Normal Saline 0.9%) 1,000 mls @ 1,000 mls/hr IV BOLUS ONE Stop: 01/27/22 11:29 Last Admin: 01/27/22 11:06 Dose: 1,000 mls/hr Documented By: CTS Vital Signs Vital signs: Vital Signs - 8 hr 01/27/22 10:04 01/27/22 09:56 01/27/22 10:00 Temperature 98.4 F Pulse Rate 104 H 100 H Respiratory Rate 16 19 Blood Pressure 160/78 H 141/61 H Pulse Oximetry 99 Oxygen Delivery Method Room Air 01/27/22 10:00 01/27/22 10:30 01/27/22 10:30 Temperature Pulse Rate 105 H 101 H Respiratory Rate 13 18 Blood Pressure 178/81 H Pulse Oximetry 100 100 Oxygen Delivery Method 01/27/22 11:00 01/27/22 11:00 01/27/22 11:30 Temperature Pulse Rate 91 H Respiratory Rate 17 Blood Pressure 185/81 H 171/78 H Pulse Oximetry 100 Oxygen Delivery Method 01/27/22 11:30 01/27/22 12:00 01/27/22 12:00 Temperature Pulse Rate 86 83 Respiratory Rate 18 21 Blood Pressure 156/75 H Pulse Oximetry 100 99 Oxygen Delivery Method 01/27/22 12:30 01/27/22 12:31 01/27/22 12:31 Temperature Pulse Rate 83 84 Respiratory Rate 25 H 32 H Blood Pressure 193/84 H Pulse Oximetry 98 97 Oxygen Delivery Method MDM - Altered Mental Status Lab Data Result diagrams: 01/27/22 10:09 01/27/22 10:09 Labs: Lab Results 01/27/22 01/27/22 01/27/22 Range/Units 09:48 10:00 10:09 WBC 0.2 L* (4.5-11.0) X10^3/uL RBC 3.31 L (4.0-5.2) X10^6/uL Hgb 9.4 L (12.0-16.0) g/dL Hct 27.3 L (36-46) % MCV 82.6 (80-100) fL MCH 28.4 (26-34) PG MCHC 34.4 (30-36) % RDW 15.9 H (11.6-14.8) % Plt Count 63 L (150-400) X10^3/uL Neut % (Auto) Not Reportable Lymph % (Auto) Not Reportable [place] % (Auto) Not Reportable Eos % (Auto) Not Reportable Baso % (Auto) Not Reportable Neut # (Auto) TNP Lymph # (Auto) TNP [place] # (Auto) TNP Eos # (Auto) TNP Baso # (Auto) TNP PT 12.5 (10.1-12.7) SECONDS INR 1.1 (0.9-1.3) Sodium (137-145) mmol/L Potassium (3.4-5.1) mmol/L Chloride (98-107) mmol/L Carbon Dioxide (22-32) mmol/L BUN (7-17) mg/dL Creatinine (0.52-1.04) mg/dL Estimated GFR (>60) mL/min BUN/Creatinine Ratio (6-22) Glucose (80-110) mg/dL Lactate (0.7-2.1) mmol/L Calcium (8.4-10.2) mg/dL Magnesium (1.6-2.3) mg/dL Total Bilirubin (0.2-1.3) mg/dL AST (14-36) IU/L ALT (<35) IU/L Alkaline Phosphatase (38-126) U/L Ammonia (9-30) umol/L Total Protein (6.3-8.2) g/dL Albumin (3.5-5.0) g/dL Globulin (1.7-4.1) g/dL Albumin/Globulin Ratio (1.0-2.8) Lipase (23-300) U/L Urine Color Urine Appearance Urine pH (4.5-8.0) Ur Specific [place] (1.000-1.035) Urine Protein (Negative) Urine Glucose (UA) (Negative) g/dL Urine Ketones (NEGATIVE) Urine Occult Blood (Negative) Urine Nitrate (Negative) Urine Bilirubin (NEGATIVE) Urine Urobilinogen (0.2) E.U./dL Ur Leukocyte Esterase (NEGATIVE) Urine RBC (0-5/HPF) Urine WBC (0-5/HPF) Ur Squamous Epith Cells (0-5/HPF) Ur Transition Epith Cell (0-5/HPF) Ur Renal Epithelial Cell (0-1/HPF) Urine Bacteria (None) Ur Culture Indicated? U Opiates 300ng/mL cut (Negative) Ur Oxycodone Screen (Negative) Urine Methadone Screen (Negative) Ur Barbiturates Screen (Negative) U Tricyclic Antidepress (Negative) Ur Phencyclidine Scrn (Negative) Ur Amphetamines Screen (Negative) U Methamphetamines Scrn (Negative) Ur MDMA Scrn (Ecstasy) (Negative) U Benzodiazepines Scrn (Negative) Urine Cocaine Screen (Negative) U Marijuana (THC) Screen (Negative) SARS-CoV-2 (PCR) Negative (Negative) 01/27/22 01/27/22 01/27/22 Range/Units 10:09 10:17 10:17 WBC (4.5-11.0) X10^3/uL RBC (4.0-5.2) X10^6/uL Hgb (12.0-16.0) g/dL Hct (36-46) % MCV (80-100) fL MCH (26-34) PG MCHC (30-36) % RDW (11.6-14.8) % Plt Count (150-400) X10^3/uL Neut % (Auto) Lymph % (Auto) [place] % (Auto) Eos % (Auto) Baso % (Auto) Neut # (Auto) Lymph # (Auto) [place] # (Auto) Eos # (Auto) Baso # (Auto) PT (10.1-12.7) SECONDS INR (0.9-1.3) Sodium 132 L (137-145) mmol/L Potassium 3.4 (3.4-5.1) mmol/L Chloride 97 L (98-107) mmol/L Carbon Dioxide 26 (22-32) mmol/L BUN 18 H (7-17) mg/dL Creatinine 1.12 H (0.52-1.04) mg/dL Estimated GFR 52 L (>60) mL/min BUN/Creatinine Ratio 16.1 (6-22) Glucose 113 H (80-110) mg/dL Lactate (0.7-2.1) mmol/L Calcium 9.6 (8.4-10.2) mg/dL Magnesium 1.8 (1.6-2.3) mg/dL Total Bilirubin 1.3 (0.2-1.3) mg/dL AST 18 (14-36) IU/L ALT 20 (<35) IU/L Alkaline Phosphatase 111 (38-126) U/L Ammonia < 9 L (9-30) umol/L Total Protein 6.4 (6.3-8.2) g/dL Albumin 4.0 (3.5-5.0) g/dL Globulin 2.4 (1.7-4.1) g/dL Albumin/Globulin Ratio 1.7 (1.0-2.8) Lipase 118 (23-300) U/L Urine Color Urine Appearance Urine pH (4.5-8.0) Ur Specific [place] (1.000-1.035) Urine Protein (Negative) Urine Glucose (UA) (Negative) g/dL Urine Ketones (NEGATIVE) Urine Occult Blood (Negative) Urine Nitrate (Negative) Urine Bilirubin (NEGATIVE) Urine Urobilinogen (0.2) E.U./dL Ur Leukocyte Esterase (NEGATIVE) Urine RBC (0-5/HPF) Urine WBC (0-5/HPF) Ur Squamous Epith Cells (0-5/HPF) Ur Transition Epith Cell (0-5/HPF) Ur Renal Epithelial Cell (0-1/HPF) Urine Bacteria (None) Ur Culture Indicated? U Opiates 300ng/mL cut (Negative) Ur Oxycodone Screen (Negative) Urine Methadone Screen (Negative) Ur Barbiturates Screen (Negative) U Tricyclic Antidepress (Negative) Ur Phencyclidine Scrn (Negative) Ur Amphetamines Screen (Negative) U Methamphetamines Scrn (Negative) Ur MDMA Scrn (Ecstasy) (Negative) U Benzodiazepines Scrn (Negative) Urine Cocaine Screen (Negative) U Marijuana (THC) Screen (Negative) SARS-CoV-2 (PCR) (Negative) 01/27/22 01/27/22 01/27/22 Range/Units 10:33 12:40 12:40 WBC (4.5-11.0) X10^3/uL RBC (4.0-5.2) X10^6/uL Hgb (12.0-16.0) g/dL Hct (36-46) % MCV (80-100) fL MCH (26-34) PG MCHC (30-36) % RDW (11.6-14.8) % Plt Count (150-400) X10^3/uL Neut % (Auto) Lymph % (Auto) [place] % (Auto) Eos % (Auto) Baso % (Auto) Neut # (Auto) Lymph # (Auto) [place] # (Auto) Eos # (Auto) Baso # (Auto) PT (10.1-12.7) SECONDS INR (0.9-1.3) Sodium (137-145) mmol/L Potassium (3.4-5.1) mmol/L Chloride (98-107) mmol/L Carbon Dioxide (22-32) mmol/L BUN (7-17) mg/dL Creatinine (0.52-1.04) mg/dL Estimated GFR (>60) mL/min BUN/Creatinine Ratio (6-22) Glucose (80-110) mg/dL Lactate 1.1 (0.7-2.1) mmol/L Calcium (8.4-10.2) mg/dL Magnesium (1.6-2.3) mg/dL Total Bilirubin (0.2-1.3) mg/dL AST (14-36) IU/L ALT (<35) IU/L Alkaline Phosphatase (38-126) U/L Ammonia (9-30) umol/L Total Protein (6.3-8.2) g/dL Albumin (3.5-5.0) g/dL Globulin (1.7-4.1) g/dL Albumin/Globulin Ratio (1.0-2.8) Lipase (23-300) U/L Urine Color Yellow Urine Appearance Clear Urine pH 7.5 (4.5-8.0) Ur Specific Griffin <=1.005 (1.000-1.035) Urine Protein 1+ H (Negative) Urine Glucose (UA) Negative (Negative) g/dL Urine Ketones Negative (NEGATIVE) Urine Occult Blood 3+ H (Negative) Urine Nitrate Negative (Negative) Urine Bilirubin Negative (NEGATIVE) Urine Urobilinogen 0.2 (0.2) E.U./dL Ur Leukocyte Esterase Trace H (NEGATIVE) Urine RBC >100/hpf H (0-5/HPF) Urine WBC 0-1/hpf (0-5/HPF) Ur Squamous Epith Cells 0-1 /hpf (0-5/HPF) Ur Transition Epith Cell 0-1/hpf (0-5/HPF) Ur Renal Epithelial Cell 0-1/hpf (0-1/HPF) Urine Bacteria Occasional (0-1) (None) Ur Culture Indicated? Cult not indicated U Opiates 300ng/mL cut Negative (Negative) Ur Oxycodone Screen Negative (Negative) Urine Methadone Screen Negative (Negative) Ur Barbiturates Screen Negative (Negative) U Tricyclic Antidepress Positive H (Negative) Ur Phencyclidine Scrn Negative (Negative) Ur Amphetamines Screen Negative (Negative) U Methamphetamines Scrn Negative (Negative) Ur MDMA Scrn (Ecstasy) Negative (Negative) U Benzodiazepines Scrn Positive H (Negative) Urine Cocaine Screen Negative (Negative) U Marijuana (THC) Screen Negative (Negative) SARS-CoV-2 (PCR) (Negative) Imaging Data Chest x-ray: Radiologist's Impression: IMPRESSION:? No acute cardiopulmonary disease. ? ? Dictated by: Maurice Deleon M.D. on 01/27/2022 at 10:37 ? ? Approved by: Maurice Deleon M.D. on 01/27/2022 at 10:38 ? ECG Data Interpretation: ECG obtained at 12:33 p.m. reveals a sinus rhythm 83 beats per minute. This is a normal EKG. MDM Narrative Medical decision making narrative: I spoke to Dr. Kearns about this patient who suggested empiric Levaquin 500 mg daily for 7 days because of the leukopenia. He also wanted to make sure the uric acid level was not greater than 8 which it is not today. (4.5) is also very concerned about insomnia I will prescribe empiric trazodone for this. Discharge Plan Departure Patient Disposition: Home Clinical Impression: Non-Hodgkin lymphoma, Neutropenia, Insomnia Activity Restrictions/Additional Instructions: Continue all medications as previously prescribed. Additionally take Levaquin 500 mg daily for 7 days. Regarding sleep, I suggest you try trazodone 100 mg at bedtime. This medication can be adjusted to take as little as 50 mg and as much as 200 mg depending on its affect. You should be contacted by Dr. Kearns's office today regarding an appointment time for tomorrow. Prescriptions: New levofloxacin 500 mg tablet 500 mg PO DAILY 6 Days Qty: 7 0RF trazodone 100 mg tablet 100 mg PO BEDTIME PRN (Reason: insomnia) Qty: 30 0RF No Action imipramine HCl [Tofranil] 50 MG tablet 50 mg PO Q DAY Qty: 0 Rx Instructions: Takes at bedtime carvedilol 12.5 mg Tablet 12.5 mg PO BID Label Comments: states she missed her evening dose last night and am dose this morning Rx Instructions: must administer with a meal/food sertraline 100 mg Tablet 100 mg PO DAILY amlodipine [Norvasc] 2.5 mg Tablet 2.5 mg PO DAILY lorazepam 0.5 mg Tablet 0.5 mg PO BEDTIME PRN (Reason: Sleep, anxiety) Qty: 30 0RF oxycodone 10 mg Tablet 10 mg PO Q6H PRN (Reason: cancer pain) Qty: 60 0RF Rx Instructions: 1 pill by mouth every 6 hours on an as-needed basis prednisone 20 mg Tablet 60 mg PO DIRECTED Qty: 30 0RF Rx Instructions: Take 3 tablets (60 mg) daily for 5 days on days 1-5 of each chemotherapy cycle prednisone 20 mg Tablet 60 mg PO DIRECTED Qty: 30 0RF Rx Instructions: Take 3 tablets (60 mg) daily for 5 days on days 1-5 of each chemotherapy cycle prednisone 50 mg Tablet 100 mg PO DIRECTED Qty: 60 0RF Rx Instructions: Take 100 mg daily on day 1-5 every 21 days prednisone 20 mg Tablet See Rx Instructions .ROUTE .COMPLEX Qty: 100 0RF Rx Instructions: Take 2 pills (60 mg) on days 1-5 every 21 days. gabapentin 100 mg capsule 100 mg PO BEDTIME Referrals: Ana Marie PA-C [Primary Care Provider] -
[2022-01-27 10:29] LABS: COVID19 -Nasal RAPID Negative (Negative)
[2022-01-27 10:42] LABS: INR 1.1 (0.9-1.3); Prothrombin Time 12.5 SECONDS (10.1-12.7)
[2022-01-27 10:50] LABS: Lipase 118 U/L (23-300); Magnesium 1.8 mg/dL (1.6-2.3)
[2022-01-27 10:52] LABS: Ammonia (NH3) < 9 umol/L (9-30)
[2022-01-27] MEDS: SODIUM CHLORIDE 0.9% 1,000 ML 1000 ML IV (11:06)
[2022-01-27 11:44] LABS: Lactate (Lactic Acid) 1.1 mmol/L (0.7-2.1)
--- NOTE | 2022-01-27 12:43 | PC.NURSE ---
purewick in place and pt tolerating well. urine sample obtained and sent to lab
[2022-01-27 12:49] LABS: Appearance Urine UA CLEAR; Bilirubin Urine UA NEGATIVE (NEGATIVE); Color Urine UA YELLOW; Glucose Urine UA NEGATIVE (Negative); Ketones Urine UA NEGATIVE (NEGATIVE); Leukocyte Esterase Urine UA TRACE (NEGATIVE); Nitrite Urine UA NEGATIVE (Negative); Occult Blood Urine UA 3+ (Negative); Protein Urine UA 1+ (Negative); Specific Gravity Urine UA <=1.005 (1.000-1.035); Urobilinogen Urine UA 0.2 E.U./dL (0.2)
[2022-01-27 12:51] LABS: pH Urine UA 7.5 (4.5-8.0)
[2022-01-27 12:56] LABS: UR Morphine/Opiate cutoff 300 Negative (Negative); Ur Creatinine Normal (Normal); Ur Specific Gravity Normal (Normal); Urine Amphetamines Negative (Negative); Urine Barbiturates Negative (Negative); Urine Benzodiazepines Positive (Negative); Urine Cocaine Negative (Negative); Urine MDMA Negative (Negative); Urine Methadone Negative (Negative); Urine Methamphetamines Negative (Negative); Urine Oxycodone Negative (Negative); Urine Phencyclidine Negative (Negative); Urine Tetrahydrocannabinol Negative (Negative); Urine Tricyclic Antidepressant Positive (Negative); Urine pH Normal (Normal)
[2022-01-27 13:06] LABS: Bacteria Urine Occasional (0-1); Culture Indicated Urine Cult Not Indicated; RBC Urine >100/HPF (0-5/HPF); Renal Epithelial Cells Urine 0-1/HPF (0-1/HPF); Squamous Epithelial Cell Urine 0-1 /HPF (0-5/HPF); Transitional Epi Cells Urine 0-1/HPF (0-5/HPF); WBC Urine 0-1/HPF (0-5/HPF)
[2022-01-27 13:47] LABS: Uric Acid 4.5 mg/dL (2.5-6.2)
[2022-01-27] MEDS: levoFLOXacin 250 MG TABLET 500 MG PO (13:52)
== END 2022-01-27 14:48 | disposition home or self-care (01) ==
PROVIDERS: Emergency Provider Family Medicine Addiction Medicine; Family Provider Internal Medicine; PCP Physician Assistant
DX: C85.90 Non-Hodgkin lymphoma, unspecified, unspecified site (principal); D70.9 Neutropenia, unspecified; G47.00 Insomnia, unspecified; Z20.822 Contact with and (suspected) exposure to COVID-19; I10 Essential (primary) hypertension
CPT/HCPCS: 36415; 71045; 80053; 80305; 81001; 82140; 83605; 83690; 83735; 84550; 85025; 85610; 87635; 93005; 93010; 96360; 96361; 99284; C9803

== ENCOUNTER 2022-01-29 12:49 | Observation (INO) | payer MEDICARE, OTHER, SELFPAY ==
[2022-01-29] VITALS (16 sets, daily range): BP systolic 130–191; BP diastolic 60–78; PULSE 61–104; RESP 15–28; TEMP 36.6–37.2; O2SAT 92–100; BMI 27.3; BMI 26.0
--- NOTE | 2022-01-29 13:12 | DI.RAD.S_ITS ---
PROCEDURE: XR CHEST 1V INDICATIONS: dizziness, fall TECHNIQUE: One view of the chest was acquired. COMPARISON: [facility], CR, XR CHEST 1V, 01/27/2022, 10:08. FINDINGS: Surgical changes and devices: Left arm PICC is present, tip of which is at the cavoatrial junction. Lungs and pleura: Lungs are clear. No pleural effusions or pneumothorax. Mediastinum: Mediastinal contours appear normal. Heart size is normal. Bones and chest wall: No suspicious bony lesions. Overlying soft tissues appear unremarkable. IMPRESSION: No acute process. Dictated by: Shelly Holt M.D. on 01/29/2022 at 13:38 Approved by: Shelly Holt M.D. on 01/29/2022 at 13:39
[2022-01-29 13:21] LABS: INR 1.3 (0.9-1.3); Prothrombin Time 14.7 SECONDS (10.1-12.7)
--- NOTE | 2022-01-29 13:26 | ED.DIZZY ---
HPI - Dizziness <Shameka EspinozaLYNDSAYP - Last Filed: 01/29/22 16:58> General Chief Complaint: Dizziness Stated Complaint: Dizziness/GLF Time Seen by Provider: 01/29/22 13:07 Source: patient Mode of arrival: EMS History of Present Illness HPI Narrative: This is a 71-year-old female with history of hypertension, B-cell lymphoma, confusion, left renal mass with CKD, Port-A-Cath in place, history neutropenia and a recent history of recent falls and is currently on Levaquin for acute cystitis which was started 3 days ago. Patient an episode of hypotension with systolic blood pressure 68 over 40s and a controlled weakness/syncopal episode and did not sustain any injury. Patient is undergoing chemotherapy and last week was found to have tumor lysis syndrome and is currently on allopurinol. Patient takes amlodipine 2.5 mg p.o. daily and carvedilol 12.5 mg b.i.d. for her hypertension and patient's states that she received both those medications today but not her secondary dose of carvedilol. He spoke with her oncologist who is Dr. Herr and also spoke with her primary care provider Dr. Marie and the plan is to hold her carvedilol if she is hypotensive. Patient was scheduled to have her lab work drawn today and instead they came to the emergency department because of her near syncopal episode. Patient's states that she has drank 18 oz of water today, she has had food as well without any nausea, vomiting, fevers, chills, sore throat, shortness of breath, diaphoresis, or new weakness. Related Data Home Medications Medication Instructions Recorded Confirmed imipramine HCl 50 mg tablet 50 mg PO Q DAY ##0 12/01/12 01/21/22 (Tofranil) carvedilol 12.5 mg tablet 12.5 mg PO BID 04/24/21 01/21/22 amlodipine 2.5 mg tablet (Norvasc) 2.5 mg PO DAILY 07/24/21 01/21/22 sertraline 100 mg tablet 100 mg PO DAILY 07/24/21 01/21/22 gabapentin 100 mg capsule 100 mg PO BEDTIME 11/21/21 01/21/22 Previous Rx's Medication Instructions Recorded lorazepam 0.5 mg tablet 0.5 mg PO BEDTIME PRN Sleep, 12/25/21 anxiety #30 tabs oxycodone 10 mg tablet 10 mg PO Q6H PRN cancer pain #60 01/01/22 tabs prednisone 20 mg tablet 60 mg PO DIRECTED #30 tabs 01/12/22 prednisone 20 mg tablet 60 mg PO DIRECTED #30 tabs 01/15/22 prednisone 50 mg tablet 100 mg PO DIRECTED #60 tabs 01/15/22 prednisone 20 mg tablet See Rx Instructions .Route 01/19/22 .COMPLEX DLBCL #100 tabs levofloxacin 500 mg tablet 500 mg PO DAILY 6 days #7 tabs 01/27/22 trazodone 100 mg tablet 100 mg PO BEDTIME PRN insomnia #30 01/27/22 tabs Allergies Allergy/AdvReac Type Severity Reaction Status Date / Time Iodinated Contrast Media Allergy Severe Hives Verified 01/29/22 13:01 [Iodinated Contrast- Oral and IV Dye] amoxicillin Allergy Intermediate Rash Verified 01/29/22 13:01 atorvastatin Allergy Intermediate Muscle Pain Verified 01/29/22 13:01 Sulfa (Sulfonamide Allergy Intermediate Hives Verified 01/29/22 13:01 Antibiotics) Review of Systems <MAXIMILIAN Warren - Last Filed: 01/29/22 16:58> Review of Systems Narrative: Review of systems is negative for acute abnormalities unless otherwise noted in HPI Patient History <MAXIMILIAN Warren - Last Filed: 01/29/22 16:58> Medical History Acute kidney injury Anxiety Arthritis CKD (chronic kidney disease) Diffuse lymphadenopathy Headache, migraine History of depression History of non-Hodgkin's lymphoma HLD (hyperlipidemia) HTN (hypertension) Hx of thyroid nodule Hydronephrosis, left Left renal mass Low back pain Neuropathy Panic disorder Renal mass Rheumatoid arthritis Surgical History H/O breast biopsy (~1985) History of appendectomy (~1966) History of surgery (03/03/18) History of thoracentesis Hx of lymph node biopsy (2017) Family History Mother Hypertension Stroke IBS (irritable bowel syndrome) Thyroid disease Brother Hodgkins lymphoma Grandmother Stroke Social History marital status: number of children: 2 household members: spouse Smoking Status: Never smoker alcohol intake: former Type(s) of exercise: other frequency: 5-6 times per week Smoking Status: Never smoker alcohol intake frequency: holidays/special occasions only Substance Use Type: does not use Exam <MAXIMILIAN Warren - Last Filed: 01/29/22 16:58> Narrative Exam Narrative: Reviewed vitals signs and nursing notes. General: cooperative, comfortable, pleasantly confused, in no acute distress, well groomed, denies any pain HEENT: symmetrical facial expressions, moist mucous membranes, without pallor Cardiovascular: regular rate and rhythm, no peripheral edema, warm extremities, S1-S2 with rub, no gallops, warm extremity without dependent edema Respiratory: normal effort, able to speak in complete sentences, without wheezing, stridor, or abnormal breath sounds. No retractions or tachypnea. GI: abdomen soft, nontender to palpation, nondistended, without masses, rebound tenderness or exquisite tenderness with exam. MSK: moves all extremities, neurovascularly intact, no weakness, normal tone Skin: brisk capillary refill, without pallor or erythema Neuro: normal speech and confusion is normal for patient at baseline A&O x3, generalized weakness, clear speech Psych: mental status is grossly normal, congruent mood, normal affect, pleasant and cooperative Initial Vital Signs Initial Vital Signs: Vital Signs Temperature 97.9 F 01/29/22 12:43 Pulse Rate 90 01/29/22 12:43 Respiratory Rate 15 01/29/22 12:43 Blood Pressure 130/61 01/29/22 12:43 Pulse Oximetry 100 01/29/22 12:43 Oxygen Delivery Method 01/29/22 12:43 <Gerardo Hurtado MD - Last Filed: 01/29/22 18:28> Initial Vital Signs Initial Vital Signs: Vital Signs Temperature 97.9 F 01/29/22 12:43 Pulse Rate 90 01/29/22 12:43 Respiratory Rate 15 01/29/22 12:43 Blood Pressure 130/61 01/29/22 12:43 Pulse Oximetry 100 01/29/22 12:43 Oxygen Delivery Method 01/29/22 12:43 Course <Shameka Espinoza, [facility] - Last Filed: 01/29/22 16:58> Orders Ordered: ED Orders 01/29/22 12:45 BNP [NT-proBNP (BNP-Adult 18+)] Stat Magnesium Stat Phosphorous Stat Uric Acid Stat 01/29/22 12:55 CBC Auto Diff [Complete Blood Count AUTO DIFF] Stat Comprehensive Metabolic Panel Stat Lactate (Lactic Acid) Stat Procalcitonin Stat Prothrombin Time INR Stat Troponin I Stat 01/29/22 13:05 EKG-12 Lead Stat 01/29/22 13:12 XR chest 1V Stat 01/29/22 13:14 COVID19 -Nasal RAPID/Pre-Proc Stat 01/29/22 14:43 Consult to Oncology Stat 01/29/22 14:48 CT head/brain wo con Stat 01/29/22 14:59 Urine Microscopic Stat Acetaminophen (Acetaminophen 325 Mg Tablet) 325 mg PO Q6H PRN PRN Reason: Fever/Mild Pain (1-3) Amlodipine Besylate (Amlodipine 5 Mg Tablet) 2.5 mg PO DAILY MARIEL Carvedilol (Carvedilol 12.5 Mg Tablet) 12.5 mg PO BID MARIEL Enoxaparin Sodium (Enoxaparin 40 Mg/0.4 Ml Syringe) 40 mg SUBCUT DAILY MARIEL Furosemide (Furosemide 20 Mg Tablet) 20 mg PO DAILY MARIEL Gabapentin (Gabapentin 100 Mg Capsule) 100 mg PO BEDTIME MARIEL Imipramine HCl (Imipramine Hcl 25 Mg Tablet) 50 mg PO DAILY MARIEL Levofloxacin (Levofloxacin 250 Mg Tablet) 500 mg PO DAILY MARIEL Lorazepam (Lorazepam 0.5 Mg Tablet) 0.5 mg PO BEDTIME PRN PRN Reason: Sleep, anxiety Sertraline HCl (Sertraline 50 Mg Tablet) 100 mg PO DAILY MARIEL Trazodone HCl (Trazodone 50 Mg Tablet) 25 mg PO BEDTIME MARIEL Vital Signs Vital signs: Vital Signs - 8 hr 01/29/22 12:43 01/29/22 12:56 01/29/22 12:58 Temperature 97.9 F Pulse Rate 90 61 Respiratory Rate 15 Blood Pressure 130/61 130/61 Pulse Oximetry 100 92 Oxygen Delivery Method Room Air 01/29/22 12:58 01/29/22 13:00 01/29/22 13:00 Temperature Pulse Rate 90 90 Respiratory Rate 20 Blood Pressure 132/62 Pulse Oximetry 100 100 Oxygen Delivery Method 01/29/22 13:30 01/29/22 13:30 01/29/22 13:58 Temperature Pulse Rate 86 Respiratory Rate 17 Blood Pressure 133/62 139/71 Pulse Oximetry 100 Oxygen Delivery Method 01/29/22 13:58 01/29/22 14:00 01/29/22 14:00 Temperature Pulse Rate 86 86 Respiratory Rate 17 18 Blood Pressure 131/60 Pulse Oximetry 100 100 Oxygen Delivery Method Room Air 01/29/22 14:30 Temperature Pulse Rate 91 H Respiratory Rate Blood Pressure Pulse Oximetry Oxygen Delivery Method <Gerardo Hurtado MD - Last Filed: 01/29/22 18:28> Orders Ordered: ED Orders 01/29/22 12:45 BNP [NT-proBNP (BNP-Adult 18+)] Stat Magnesium Stat Phosphorous Stat Uric Acid Stat 01/29/22 12:55 CBC Auto Diff [Complete Blood Count AUTO DIFF] Stat Comprehensive Metabolic Panel Stat Lactate (Lactic Acid) Stat Procalcitonin Stat Prothrombin Time INR Stat Troponin I Stat 01/29/22 13:05 EKG-12 Lead Stat 01/29/22 13:12 XR chest 1V Stat 01/29/22 13:14 COVID19 -Nasal RAPID/Pre-Proc Stat 01/29/22 14:43 Consult to Oncology Stat 01/29/22 14:48 CT head/brain wo con Stat 01/29/22 14:59 Urine Microscopic Stat Acetaminophen (Acetaminophen 325 Mg Tablet) 325 mg PO Q6H PRN PRN Reason: Fever/Mild Pain (1-3) Amlodipine Besylate (Amlodipine 5 Mg Tablet) 2.5 mg PO DAILY MARIEL Carvedilol (Carvedilol 12.5 Mg Tablet) 12.5 mg PO BID MARIEL Enoxaparin Sodium (Enoxaparin 40 Mg/0.4 Ml Syringe) 40 mg SUBCUT DAILY MARIEL Furosemide (Furosemide 20 Mg Tablet) 20 mg PO DAILY MARIEL Gabapentin (Gabapentin 100 Mg Capsule) 100 mg PO BEDTIME MARIEL Imipramine HCl (Imipramine Hcl 25 Mg Tablet) 50 mg PO DAILY MARIEL Levofloxacin (Levofloxacin 250 Mg Tablet) 500 mg PO DAILY MARIEL Lorazepam (Lorazepam 0.5 Mg Tablet) 0.5 mg PO BEDTIME PRN PRN Reason: Sleep, anxiety Sertraline HCl (Sertraline 50 Mg Tablet) 100 mg PO DAILY MARIEL Trazodone HCl (Trazodone 50 Mg Tablet) 25 mg PO BEDTIME MARIEL Vital Signs Vital signs: Vital Signs - 8 hr 01/29/22 12:43 01/29/22 12:56 01/29/22 12:58 Temperature 97.9 F Pulse Rate 90 61 Respiratory Rate 15 Blood Pressure 130/61 130/61 Pulse Oximetry 100 92 Oxygen Delivery Method Room Air 01/29/22 12:58 01/29/22 13:00 01/29/22 13:00 Temperature Pulse Rate 90 90 Respiratory Rate 20 Blood Pressure 132/62 Pulse Oximetry 100 100 Oxygen Delivery Method 01/29/22 13:30 01/29/22 13:30 01/29/22 13:58 Temperature Pulse Rate 86 Respiratory Rate 17 Blood Pressure 133/62 139/71 Pulse Oximetry 100 Oxygen Delivery Method 01/29/22 13:58 01/29/22 14:00 01/29/22 14:00 Temperature Pulse Rate 86 86 Respiratory Rate 17 18 Blood Pressure 131/60 Pulse Oximetry 100 100 Oxygen Delivery Method Room Air 01/29/22 14:30 Temperature Pulse Rate 91 H Respiratory Rate Blood Pressure Pulse Oximetry Oxygen Delivery Method MDM - Dizziness <MAXIMILIAN Warren - Last Filed: 01/29/22 16:58> Lab Data Result diagrams: 01/29/22 17:45 01/29/22 12:55 Labs: Lab Results 01/29/22 01/29/22 01/29/22 Range/Units 12:45 12:45 12:55 WBC (4.5-11.0) X10^3/uL RBC (4.0-5.2) X10^6/uL Hgb (12.0-16.0) g/dL Hct (36-46) % MCV (80-100) fL MCH (26-34) PG MCHC (30-36) % RDW (11.6-14.8) % Plt Count (150-400) X10^3/uL Neut % (Auto) Lymph % (Auto) [place] % (Auto) Eos % (Auto) Baso % (Auto) Lymph # (Auto) [place] # (Auto) Baso # (Auto) Total Counted Seg Neutrophils % (38-70) % Band Neutrophils % (3-7) % Lymphocytes % (Manual) (25-45) % Monocytes % (Manual) (2-11) % Eosinophils % (Manual) (2-4) % Metamyelocytes % (-0) % Myelocytes % (-0) % Neutrophils # (Manual) (9950-3478) /uL Dohle Bodies RBC Morphology PT 14.7 H (10.1-12.7) SECONDS INR 1.3 (0.9-1.3) Sodium (137-145) mmol/L Potassium (3.4-5.1) mmol/L Chloride (98-107) mmol/L Carbon Dioxide (22-32) mmol/L BUN (7-17) mg/dL Creatinine (0.52-1.04) mg/dL Estimated GFR (>60) mL/min BUN/Creatinine Ratio (6-22) Glucose (80-110) mg/dL Lactate (0.7-2.1) mmol/L Uric Acid 5.5 (2.5-6.2) mg/dL Calcium (8.4-10.2) mg/dL Phosphorus 3.2 (2.8-4.1) mg/dL Magnesium 1.9 (1.6-2.3) mg/dL Total Bilirubin (0.2-1.3) mg/dL AST (14-36) IU/L ALT (<35) IU/L Alkaline Phosphatase (38-126) U/L Troponin I (0.01-0.034) ng/mL NT-Pro-B Natriuret Pep 1150 H (<125) pg/mL Total Protein (6.3-8.2) g/dL Albumin (3.5-5.0) g/dL Globulin (1.7-4.1) g/dL Albumin/Globulin Ratio (1.0-2.8) Procalcitonin (<0.5) ng/mL SARS-CoV-2 (PCR) (Negative) 01/29/22 01/29/22 01/29/22 Range/Units 12:55 12:55 12:55 WBC 1.9 L* (4.5-11.0) X10^3/uL RBC 3.07 L (4.0-5.2) X10^6/uL Hgb 8.7 L (12.0-16.0) g/dL Hct 25.3 L (36-46) % MCV 82.6 (80-100) fL MCH 28.5 (26-34) PG MCHC 34.5 (30-36) % RDW 15.8 H (11.6-14.8) % Plt Count 84 L (150-400) X10^3/uL Neut % (Auto) Not Reportable Lymph % (Auto) Not Reportable [place] % (Auto) Not Reportable Eos % (Auto) Not Reportable Baso % (Auto) Not Reportable Lymph # (Auto) Not Reportable [place] # (Auto) Not Reportable Baso # (Auto) Not Reportable Total Counted 50 Seg Neutrophils % 60.0 (38-70) % Band Neutrophils % 10.0 H (3-7) % Lymphocytes % (Manual) 16.0 L (25-45) % Monocytes % (Manual) 6.0 (2-11) % Eosinophils % (Manual) 4.0 (2-4) % Metamyelocytes % 2.0 H (-0) % Myelocytes % 2.0 H (-0) % Neutrophils # (Manual) 1330 L (4515-2450) /uL Dohle Bodies 1+ H RBC Morphology See below PT (10.1-12.7) SECONDS INR (0.9-1.3) Sodium 134 L (137-145) mmol/L Potassium 3.7 (3.4-5.1) mmol/L Chloride 98 (98-107) mmol/L Carbon Dioxide 28 (22-32) mmol/L BUN 14 (7-17) mg/dL Creatinine 1.47 H (0.52-1.04) mg/dL Estimated GFR 38 L (>60) mL/min BUN/Creatinine Ratio 9.5 (6-22) Glucose 114 H (80-110) mg/dL Lactate 2.1 (0.7-2.1) mmol/L Uric Acid (2.5-6.2) mg/dL Calcium 9.8 (8.4-10.2) mg/dL Phosphorus (2.8-4.1) mg/dL Magnesium (1.6-2.3) mg/dL Total Bilirubin 0.7 (0.2-1.3) mg/dL AST 23 (14-36) IU/L ALT 18 (<35) IU/L Alkaline Phosphatase 92 (38-126) U/L Troponin I 0.019 (0.01-0.034) ng/mL NT-Pro-B Natriuret Pep (<125) pg/mL Total Protein 6.3 (6.3-8.2) g/dL Albumin 3.7 (3.5-5.0) g/dL Globulin 2.6 (1.7-4.1) g/dL Albumin/Globulin Ratio 1.4 (1.0-2.8) Procalcitonin 0.11 (<0.5) ng/mL SARS-CoV-2 (PCR) (Negative) 01/29/22 Range/Units 13:14 WBC (4.5-11.0) X10^3/uL RBC (4.0-5.2) X10^6/uL Hgb (12.0-16.0) g/dL Hct (36-46) % MCV (80-100) fL MCH (26-34) PG MCHC (30-36) % RDW (11.6-14.8) % Plt Count (150-400) X10^3/uL Neut % (Auto) Lymph % (Auto) [place] % (Auto) Eos % (Auto) Baso % (Auto) Lymph # (Auto) [place] # (Auto) Baso # (Auto) Total Counted Seg Neutrophils % (38-70) % Band Neutrophils % (3-7) % Lymphocytes % (Manual) (25-45) % Monocytes % (Manual) (2-11) % Eosinophils % (Manual) (2-4) % Metamyelocytes % (-0) % Myelocytes % (-0) % Neutrophils # (Manual) (2728-0590) /uL Dohle Bodies RBC Morphology PT (10.1-12.7) SECONDS INR (0.9-1.3) Sodium (137-145) mmol/L Potassium (3.4-5.1) mmol/L Chloride (98-107) mmol/L Carbon Dioxide (22-32) mmol/L BUN (7-17) mg/dL Creatinine (0.52-1.04) mg/dL Estimated GFR (>60) mL/min BUN/Creatinine Ratio (6-22) Glucose (80-110) mg/dL Lactate (0.7-2.1) mmol/L Uric Acid (2.5-6.2) mg/dL Calcium (8.4-10.2) mg/dL Phosphorus (2.8-4.1) mg/dL Magnesium (1.6-2.3) mg/dL Total Bilirubin (0.2-1.3) mg/dL AST (14-36) IU/L ALT (<35) IU/L Alkaline Phosphatase (38-126) U/L Troponin I (0.01-0.034) ng/mL NT-Pro-B Natriuret Pep (<125) pg/mL Total Protein (6.3-8.2) g/dL Albumin (3.5-5.0) g/dL Globulin (1.7-4.1) g/dL Albumin/Globulin Ratio (1.0-2.8) Procalcitonin (<0.5) ng/mL SARS-CoV-2 (PCR) Negative (Negative) Imaging Data Chest x-ray: Radiologist's Impression: PROCEDURE:? XR CHEST 1V ? INDICATIONS:? dizziness, fall ? TECHNIQUE:? One view of the chest was acquired.? ? COMPARISON:? [facility], CR, XR CHEST 1V, 01/27/2022, 10:08. ? FINDINGS:? ? Surgical changes and devices:? Left arm PICC is present, tip of which is at the cavoatrial junction. ? Lungs and pleura:? Lungs are clear.? No pleural effusions or pneumothorax.? ? Mediastinum:? Mediastinal contours appear normal.? Heart size is normal.? ? Bones and chest wall:? No suspicious bony lesions.? Overlying soft tissues appear unremarkable.? ? IMPRESSION:? No acute process. ? ? Dictated by: Shelly Holt M.D. on 01/29/2022 at 13:38 ? ? Approved by: Shelly Holt M.D. on 01/29/2022 at 13:39 ? CT scan - head: Radiologist's Impression: T HEAD/BRAIN WO CON ? INDICATIONS:? altered mental status ? TECHNIQUE:? Noncontrast 4.5 mm thick angled axial sections acquired from the foramen magnum to the vertex, with coronal and sagittal reformats.? For radiation dose reduction, the following was used:? automated exposure control, adjustment of mA and/or kV according to patient size.? ? COMPARISON:? [facility], CT, CT HEAD/BRAIN WO CON, 01/21/2022, 9:49. ? FINDINGS:? Image quality:? Excellent.? ? CSF spaces:? Basal cisterns are patent.? No extra-axial fluid collections.? The ventricles are symmetric in size and shape.? ? Brain:? No intracranial bleeds or masses.? Old lacunar infarct in right basal ganglia is again seen and unchanged.? There is cerebral volume loss for age, with resultant ventricular and sulcal prominence.? There are periventricular and deep white matter chronic small vessel ischemic changes.? There is intracranial internal carotid artery atherosclerosis.? ? Skull and face:? Calvarium and visualized facial bones appear intact, without suspicious lesions.? ? Sinuses:? Visualized sinuses and mastoids are clear.? ? IMPRESSION:? No CT evidence of acute intracranial abnormalities.? No significant changes from previous study. ? ? ? Dictated by: Gerson Terry M.D. on 01/29/2022 at 15:23 ? ? Approved by: Gerson Terry M.D. on 01/29/2022 at 15:24 ? ECG Data Interpretation: EKG independently reviewed by myself at [1306] and reveals normal sinus rhythm at 88 bpm with regular axis and intervals. No STEMI, ST segment changes, arrhythmia, or acute ischemic changes. Nonspecific ST and T-wave abnormalities are consistent with her prior EKGs and without elevation or depression. MDM Narrative Medical decision making narrative: This is a 71-year-old female who presents to the emergency department today with a near syncopal episode during a hypotensive episode. Patient is a non-Hodgkin's type B-cell lymphoma patient on chemotherapy and it is notable that patient was in tumor lysis syndrome last week and was diagnosed with a UTI 2 days ago and started on Levaquin, 2 days ago her neutrophil count was 0.2 and she was neutropenic after 01/22/2022 patient's WBC was 39.6. Today her WBC is 1.9, hemoglobin of 8.7 and hematocrit of 25.3 which are stable for patient. Her platelet count is 84 which is increased from 01/27/2022. PT is 14.7, INR is 1.3, sodium of 134, potassium of 3.7, creatinine is increased from 01/27/2022 at 1.47 from 1.12 with a GFR decreased from 50 to down to 38 today. There is no lactic acidosis, her lactate is 2.1, uric acid level is 5.5 and her prior uric acid level was 4.5. She is on allopurinol for her tumor lysis syndrome. Her COVID PCR today is negative. She denies any pain, she is generally weak, has taken her amlodipine this morning and her carvedilol this morning but no secondary dose of carvedilol yet. She received 1 L of normal saline for dehydration and elevated creatinine. At 14:30, recheck patient to see how she was doing and patient now is unable to swallow for some reason. She appears altered, more confused than she was earlier, we will hold liquid in her mouth but refuses to swallow it, did not take her dose of Levaquin today due to difficulty with swallow. Patient's posterior pharynx is without erythema, foreign body, exudate, uvula is midline, without any other focal neuro deficits on exam. Patient is able to stand and sit, has full range of motion of her extremities without any deficit or new weakness. CT head without contrast is negative for acute intracranial abnormalities and without significant changes from previous study. Chest x-ray without any acute abnormalities Discussion with Dr. Mann from hospitalist service about patient's case who accepts patient for admission to observation. <Gerardo Hurtado MD - Last Filed: 01/29/22 18:28> Lab Data Labs: Lab Results 01/29/22 01/29/22 01/29/22 Range/Units 12:45 12:45 12:55 WBC (4.5-11.0) X10^3/uL RBC (4.0-5.2) X10^6/uL Hgb (12.0-16.0) g/dL Hct (36-46) % MCV (80-100) fL MCH (26-34) PG MCHC (30-36) % RDW (11.6-14.8) % Plt Count (150-400) X10^3/uL Neut % (Auto) Lymph % (Auto) [place] % (Auto) Eos % (Auto) Baso % (Auto) Lymph # (Auto) [place] # (Auto) Baso # (Auto) Total Counted Seg Neutrophils % (38-70) % Band Neutrophils % (3-7) % Lymphocytes % (Manual) (25-45) % Monocytes % (Manual) (2-11) % Eosinophils % (Manual) (2-4) % Metamyelocytes % (-0) % Myelocytes % (-0) % Neutrophils # (Manual) (2366-0740) /uL Dohle Bodies RBC Morphology PT 14.7 H (10.1-12.7) SECONDS INR 1.3 (0.9-1.3) Sodium (137-145) mmol/L Potassium (3.4-5.1) mmol/L Chloride (98-107) mmol/L Carbon Dioxide (22-32) mmol/L BUN (7-17) mg/dL Creatinine (0.52-1.04) mg/dL Estimated GFR (>60) mL/min BUN/Creatinine Ratio (6-22) Glucose (80-110) mg/dL Lactate (0.7-2.1) mmol/L Uric Acid 5.5 (2.5-6.2) mg/dL Calcium (8.4-10.2) mg/dL Phosphorus 3.2 (2.8-4.1) mg/dL Magnesium 1.9 (1.6-2.3) mg/dL Total Bilirubin (0.2-1.3) mg/dL AST (14-36) IU/L ALT (<35) IU/L Alkaline Phosphatase (38-126) U/L Troponin I (0.01-0.034) ng/mL NT-Pro-B Natriuret Pep 1150 H (<125) pg/mL Total Protein (6.3-8.2) g/dL Albumin (3.5-5.0) g/dL Globulin (1.7-4.1) g/dL Albumin/Globulin Ratio (1.0-2.8) Procalcitonin (<0.5) ng/mL SARS-CoV-2 (PCR) (Negative) 01/29/22 01/29/22 01/29/22 Range/Units 12:55 12:55 12:55 WBC 1.9 L* (4.5-11.0) X10^3/uL RBC 3.07 L (4.0-5.2) X10^6/uL Hgb 8.7 L (12.0-16.0) g/dL Hct 25.3 L (36-46) % MCV 82.6 (80-100) fL MCH 28.5 (26-34) PG MCHC 34.5 (30-36) % RDW 15.8 H (11.6-14.8) % Plt Count 84 L (150-400) X10^3/uL Neut % (Auto) Not Reportable Lymph % (Auto) Not Reportable [place] % (Auto) Not Reportable Eos % (Auto) Not Reportable Baso % (Auto) Not Reportable Lymph # (Auto) Not Reportable [place] # (Auto) Not Reportable Baso # (Auto) Not Reportable Total Counted 50 Seg Neutrophils % 60.0 (38-70) % Band Neutrophils % 10.0 H (3-7) % Lymphocytes % (Manual) 16.0 L (25-45) % Monocytes % (Manual) 6.0 (2-11) % Eosinophils % (Manual) 4.0 (2-4) % Metamyelocytes % 2.0 H (-0) % Myelocytes % 2.0 H (-0) % Neutrophils # (Manual) 1330 L (4233-1442) /uL Dohle Bodies 1+ H RBC Morphology See below PT (10.1-12.7) SECONDS INR (0.9-1.3) Sodium 134 L (137-145) mmol/L Potassium 3.7 (3.4-5.1) mmol/L Chloride 98 (98-107) mmol/L Carbon Dioxide 28 (22-32) mmol/L BUN 14 (7-17) mg/dL Creatinine 1.47 H (0.52-1.04) mg/dL Estimated GFR 38 L (>60) mL/min BUN/Creatinine Ratio 9.5 (6-22) Glucose 114 H (80-110) mg/dL Lactate 2.1 (0.7-2.1) mmol/L Uric Acid (2.5-6.2) mg/dL Calcium 9.8 (8.4-10.2) mg/dL Phosphorus (2.8-4.1) mg/dL Magnesium (1.6-2.3) mg/dL Total Bilirubin 0.7 (0.2-1.3) mg/dL AST 23 (14-36) IU/L ALT 18 (<35) IU/L Alkaline Phosphatase 92 (38-126) U/L Troponin I 0.019 (0.01-0.034) ng/mL NT-Pro-B Natriuret Pep (<125) pg/mL Total Protein 6.3 (6.3-8.2) g/dL Albumin 3.7 (3.5-5.0) g/dL Globulin 2.6 (1.7-4.1) g/dL Albumin/Globulin Ratio 1.4 (1.0-2.8) Procalcitonin 0.11 (<0.5) ng/mL SARS-CoV-2 (PCR) (Negative) 01/29/22 Range/Units 13:14 WBC (4.5-11.0) X10^3/uL RBC (4.0-5.2) X10^6/uL Hgb (12.0-16.0) g/dL Hct (36-46) % MCV (80-100) fL MCH (26-34) PG MCHC (30-36) % RDW (11.6-14.8) % Plt Count (150-400) X10^3/uL Neut % (Auto) Lymph % (Auto) [place] % (Auto) Eos % (Auto) Baso % (Auto) Lymph # (Auto) [place] # (Auto) Baso # (Auto) Total Counted Seg Neutrophils % (38-70) % Band Neutrophils % (3-7) % Lymphocytes % (Manual) (25-45) % Monocytes % (Manual) (2-11) % Eosinophils % (Manual) (2-4) % Metamyelocytes % (-0) % Myelocytes % (-0) % Neutrophils # (Manual) (2311-9745) /uL Dohle Bodies RBC Morphology PT (10.1-12.7) SECONDS INR (0.9-1.3) Sodium (137-145) mmol/L Potassium (3.4-5.1) mmol/L Chloride (98-107) mmol/L Carbon Dioxide (22-32) mmol/L BUN (7-17) mg/dL Creatinine (0.52-1.04) mg/dL Estimated GFR (>60) mL/min BUN/Creatinine Ratio (6-22) Glucose (80-110) mg/dL Lactate (0.7-2.1) mmol/L Uric Acid (2.5-6.2) mg/dL Calcium (8.4-10.2) mg/dL Phosphorus (2.8-4.1) mg/dL Magnesium (1.6-2.3) mg/dL Total Bilirubin (0.2-1.3) mg/dL AST (14-36) IU/L ALT (<35) IU/L Alkaline Phosphatase (38-126) U/L Troponin I (0.01-0.034) ng/mL NT-Pro-B Natriuret Pep (<125) pg/mL Total Protein (6.3-8.2) g/dL Albumin (3.5-5.0) g/dL Globulin (1.7-4.1) g/dL Albumin/Globulin Ratio (1.0-2.8) Procalcitonin (<0.5) ng/mL SARS-CoV-2 (PCR) Negative (Negative) Discharge Plan Departure Patient Disposition: Admitted as Observation Clinical Impression: Tumor lysis syndrome, Near syncope Neutropenia Qualifiers: Neutropenia type: other Qualified Code(s): D70.8 - Other neutropenia Altered mental state Qualifiers: Altered mental status type: delirium Qualified Code(s): R41.0 - Disorientation, unspecified Non-Hodgkin lymphoma Qualifiers: Non-Hodgkin lymphoma type: unspecified type Admit Date/Time: 01/29/22 15:02 Admit Provider: Melania Sarmiento <Gerardo Hurtado MD - Last Filed: 01/29/22 18:28> Cosign ED Attending Cosignature Attestation: I was immediately available in the department for consultation. ?This documentation has been reviewed and I agree with assessment and plan. Supervised by Gerardo Hurtado MD
[2022-01-29 13:27] LABS: Lactate (Lactic Acid) 2.1 mmol/L (0.7-2.1)
[2022-01-29 13:28] LABS: Alanine Aminotransferase 18 IU/L (<35); Albumin 3.7 g/dL (3.5-5.0); Albumin Globulin Ratio 1.4 (1.0-2.8); Alkaline Phosphatase 92 U/L (38-126); Aspartate Aminotransferase 23 IU/L (14-36); BUN Creatinine Ratio 9.5 (6-22); Bilirubin Total 0.7 mg/dL (0.2-1.3); Blood Urea Nitrogen 14 mg/dL (7-17); Calcium 9.8 mg/dL (8.4-10.2); Carbon Dioxide 28 mmol/L (22-32); Chloride 98 mmol/L (98-107); Estimated Glomerular Filt Rate 38 mL/min (>60); Globulin 2.6 g/dL (1.7-4.1); Glucose 114 mg/dL (80-110); Sodium 134 mmol/L (137-145); Total Protein 6.3 g/dL (6.3-8.2)
[2022-01-29 13:32] LABS: HEMOLYSIS 56 (0-50); Potassium 3.7 mmol/L (3.4-5.1)
[2022-01-29 13:40] LABS: Troponin I 0.019 ng/mL (0.01-0.034)
[2022-01-29 13:43] LABS: Magnesium 1.9 mg/dL (1.6-2.3); Phosphorous 3.2 mg/dL (2.8-4.1); Uric Acid 5.5 mg/dL (2.5-6.2)
[2022-01-29 13:45] LABS: Procalcitonin 0.11 ng/mL (<0.5)
[2022-01-29 13:52] LABS: Hematocrit 25.3 % (36-46); Hemoglobin 8.7 g/dL (12.0-16.0); Mean Corpuscular HGB Conc 34.5 % (30-36); Mean Corpuscular Hemoglobin 28.5 PG (26-34); Mean Corpuscular Volume 82.6 fL (80-100); Platelet Count 84 X10^3/uL (150-400); Red Blood Cell Count 3.07 X10^6/uL (4.0-5.2); Red Cell Distribution Width 15.8 % (11.6-14.8)
[2022-01-29 13:52] LABS: NT-proBNP (BNP-Adult 18+) 1150 pg/mL (<125)
[2022-01-29 13:55] LABS: Add Manual Diff / Slide Review YES; White Blood Cell Count 1.9 X10^3/uL (4.5-11.0)
[2022-01-29 13:56] LABS: COVID19 -Nasal RAPID Negative (Negative)
--- NOTE | 2022-01-29 14:08 | PC.NURSE ---
Per pt is able to voice when she needs to urinate, urgency prevents her from always making to the toilet. Attempted urine collection from pt, pt unable to provide, pt brief was noted to be dry.
[2022-01-29 14:20] LABS: Dohle Bodies 1+; Neutrophils Absolute Manual 1330 /uL (3000-5900); Total Cells Counted 50
--- NOTE | 2022-01-29 14:43 | PC.NURSE ---
attempted to give pt her antibiotic, okayed by Crew ELIGIBILITY SERVICES REPRESENTATIVE, reports pt unable to swallow pill. Assessed pt and pt would open mouth but not swallow on command, Crew ELIGIBILITY SERVICES REPRESENTATIVE provided pt small sip of fluids and pt would not follow command to swallow, spit fluid on to wash cloth. Pt tolerating secretions, breathing even and unlabored. Pt has right upper arm PICC line, reports pt missed appointments for the dressing change dated 01/16/22, provided pt and education on dressing changes needed every 7 days and increased risk for infection if not.
--- NOTE | 2022-01-29 14:48 | DI.CT.S_ITS ---
PROCEDURE: CT HEAD/BRAIN WO CON INDICATIONS: altered mental status TECHNIQUE: Noncontrast 4.5 mm thick angled axial sections acquired from the foramen magnum to the vertex, with coronal and sagittal reformats. For radiation dose reduction, the following was used: automated exposure control, adjustment of mA and/or kV according to patient size. COMPARISON: [facility], CT, CT HEAD/BRAIN WO CON, 01/21/2022, 9:49. FINDINGS: Image quality: Excellent. CSF spaces: Basal cisterns are patent. No extra-axial fluid collections. The ventricles are symmetric in size and shape. Brain: No intracranial bleeds or masses. Old lacunar infarct in right basal ganglia is again seen and unchanged. There is cerebral volume loss for age, with resultant ventricular and sulcal prominence. There are periventricular and deep white matter chronic small vessel ischemic changes. There is intracranial internal carotid artery atherosclerosis. Skull and face: Calvarium and visualized facial bones appear intact, without suspicious lesions. Sinuses: Visualized sinuses and mastoids are clear. IMPRESSION: No CT evidence of acute intracranial abnormalities. No significant changes from previous study. Dictated by: Gerson Terry M.D. on 01/29/2022 at 15:23 Approved by: Gerson Terry M.D. on 01/29/2022 at 15:24
[2022-01-29 15:15] LABS: Reflexed Lactate in 2 Hours Y
--- NOTE | 2022-01-29 15:37 | PC.NURSE ---
Pt right upper arm PICC dressing changed utilizing sterile technique. Pt educated on straight cath ordered to collect urine, pt refusing stating it's uncomfortable, pt educated on need for urine collection.
--- NOTE | 2022-01-29 15:38 | PM.HP.1 ---
History of Present Illness History of Present Illness Date Patient Seen: 01/29/22 Chief complaint: Dizziness/GLF Narrative: Krissy Joyner is a 71-year-old female with history of hypertension, B-cell lymphoma, confusion, left renal mass with CKD, Port-A-Cath in place, history of neutropenia and a recent history of recent falls and is currently on Levaquin for acute cystitis which was started 3 days ago.? Patient had an episode of hypotension with systolic blood pressure 68 over 40s and a controlled weakness/syncopal episode and did not sustain any injury.? Patient is undergoing chemotherapy and last week was found to have tumor lysis syndrome and is currently on allopurinol. Patient having any fever chills nausea vomiting. Having headache and increased back pain. Normally walks at home with a walker but needs standby assistance. Significant confusion per the . Medical history information obtained from . Patient says that she does not have any concerns. She defers to her for information. Patient started trazodone last night for the 1st time took 100 mg tablet. Slept very well and was calm, however had the problems she did have this morning and it is concerning that this is a side effect trazodone. Patient History Medical History Acute kidney injury Anxiety Arthritis CKD (chronic kidney disease) Diffuse lymphadenopathy Headache, migraine History of depression History of non-Hodgkin's lymphoma HLD (hyperlipidemia) HTN (hypertension) Hx of thyroid nodule Hydronephrosis, left Left renal mass Low back pain Neuropathy Panic disorder Renal mass Rheumatoid arthritis Surgical History H/O breast biopsy (~1985) History of appendectomy (~1966) History of surgery (03/03/18) History of thoracentesis Hx of lymph node biopsy (2017) Family & Social History Family History Mother Hypertension Stroke IBS (irritable bowel syndrome) Thyroid disease Brother Hodgkins lymphoma Grandmother Stroke Social History: household members spouse Safety & Behavioral: Feels Safe in Current Yes Environment Been Physically Hurt or No Threatened By a Person Tobacco & Substance use: Smoking Status Never smoker alcohol intake former alcohol intake frequency holiday/special occasion Substance Use Type does not use Meds Home Medications and Allergies Home Medications Medication Instructions Recorded Confirmed Type imipramine HCl 50 mg tablet 50 mg PO Q DAY ##0 12/01/12 01/21/22 History (Tofranil) carvedilol 12.5 mg tablet 12.5 mg PO BID 04/24/21 01/21/22 History amlodipine 2.5 mg tablet (Norvasc) 2.5 mg PO DAILY 07/24/21 01/21/22 History sertraline 100 mg tablet 100 mg PO DAILY 07/24/21 01/21/22 History gabapentin 100 mg capsule 100 mg PO BEDTIME 11/21/21 01/21/22 History lorazepam 0.5 mg tablet 0.5 mg PO BEDTIME PRN Sleep, 12/25/21 01/21/22 Rx anxiety #30 tabs oxycodone 10 mg tablet 10 mg PO Q6H PRN cancer pain #60 01/01/22 01/21/22 Rx tabs prednisone 20 mg tablet 60 mg PO DIRECTED #30 tabs 01/12/22 Rx prednisone 20 mg tablet 60 mg PO DIRECTED #30 tabs 01/15/22 Rx prednisone 50 mg tablet 100 mg PO DIRECTED #60 tabs 01/15/22 Rx prednisone 20 mg tablet See Rx Instructions .Route 01/19/22 Rx .COMPLEX DLBCL #100 tabs levofloxacin 500 mg tablet 500 mg PO DAILY 6 days #7 tabs 01/27/22 Rx trazodone 100 mg tablet 100 mg PO BEDTIME PRN insomnia #30 01/27/22 Rx tabs Allergies Allergy/AdvReac Type Severity Reaction Status Date / Time Iodinated Contrast Media Allergy Severe Hives Verified 01/29/22 13:01 [Iodinated Contrast- Oral and IV Dye] amoxicillin Allergy Intermediate Rash Verified 01/29/22 13:01 atorvastatin Allergy Intermediate Muscle Pain Verified 01/29/22 13:01 Sulfa (Sulfonamide Allergy Intermediate Hives Verified 01/29/22 13:01 Antibiotics) Review of Systems Review of Systems Narrative: Fourteen system review and pertinent findings are in the history of chief complaint. Exam Vital Signs (past 8 hours): - 01/29/22 12:43 01/29/22 12:56 01/29/22 12:58 Temperature 97.9 F Pulse Rate 90 61 Respiratory Rate 15 Blood Pressure 130/61 130/61 Pulse Oximetry 100 92 Oxygen Delivery Method Room Air 01/29/22 12:58 01/29/22 13:00 01/29/22 13:00 Temperature Pulse Rate 90 90 Respiratory Rate 20 Blood Pressure 132/62 Pulse Oximetry 100 100 Oxygen Delivery Method 01/29/22 13:30 01/29/22 13:30 01/29/22 13:58 Temperature Pulse Rate 86 Respiratory Rate 17 Blood Pressure 133/62 139/71 Pulse Oximetry 100 Oxygen Delivery Method 01/29/22 13:58 01/29/22 14:00 01/29/22 14:00 Temperature Pulse Rate 86 86 Respiratory Rate 17 18 Blood Pressure 131/60 Pulse Oximetry 100 100 Oxygen Delivery Method Room Air Oxygen Delivery Method Room Air Narrative Exam Narrative: General: cooperative, comfortable, pleasantly confused, in no acute distress, denies any pain HEENT: symmetrical facial expressions, moist mucous membranes, head normocephalic. Midline. Cardiovascular: regular rate and rhythm, no peripheral edema, S1-S2 with rub, no gallops, warm extremity without peripheral edema Respiratory: normal effort, able to speak in complete sentences, no wheezing, stridor, or abnormal breath sounds. GI: abdomen soft, nontender to palpation, nondistended, without masses, no tenderness MSK: moves all extremities, no weakness, normal tone Skin: without pallor or erythema, no rashes or lesions Neuro: normal speech and confusion is normal for patient at baseline, appears to be oriented to person and place Psych: General confusion and able to assess but does not appear to have any acute mood or acute depression. Objective Labs Result Diagrams: 01/29/22 12:55 01/29/22 12:55 Labs: Laboratory Results - last 24 hr 01/29/22 01/29/22 01/29/22 12:45 12:45 12:55 WBC RBC Hgb Hct MCV MCH MCHC RDW Plt Count Neut % (Auto) Lymph % (Auto) [place] % (Auto) Eos % (Auto) Baso % (Auto) Lymph # (Auto) [place] # (Auto) Baso # (Auto) Total Counted Seg Neutrophils % Band Neutrophils % Lymphocytes % (Manual) Monocytes % (Manual) Eosinophils % (Manual) Metamyelocytes % Myelocytes % Neutrophils # (Manual) Dohle Bodies RBC Morphology PT 14.7 H INR 1.3 Sodium Potassium Chloride Carbon Dioxide BUN Creatinine Estimated GFR BUN/Creatinine Ratio Glucose Lactate Uric Acid 5.5 Calcium Phosphorus 3.2 Magnesium 1.9 Total Bilirubin AST ALT Alkaline Phosphatase Troponin I NT-Pro-B Natriuret Pep 1150 H Total Protein Albumin Globulin Albumin/Globulin Ratio Procalcitonin SARS-CoV-2 (PCR) 01/29/22 01/29/22 01/29/22 12:55 12:55 12:55 WBC 1.9 L* RBC 3.07 L Hgb 8.7 L Hct 25.3 L MCV 82.6 MCH 28.5 MCHC 34.5 RDW 15.8 H Plt Count 84 L Neut % (Auto) Not Reportable Lymph % (Auto) Not Reportable [place] % (Auto) Not Reportable Eos % (Auto) Not Reportable Baso % (Auto) Not Reportable Lymph # (Auto) Not Reportable [place] # (Auto) Not Reportable Baso # (Auto) Not Reportable Total Counted 50 Seg Neutrophils % 60.0 Band Neutrophils % 10.0 H Lymphocytes % (Manual) 16.0 L Monocytes % (Manual) 6.0 Eosinophils % (Manual) 4.0 Metamyelocytes % 2.0 H Myelocytes % 2.0 H Neutrophils # (Manual) 1330 L Dohle Bodies 1+ H RBC Morphology See below PT INR Sodium 134 L Potassium 3.7 Chloride 98 Carbon Dioxide 28 BUN 14 Creatinine 1.47 H Estimated GFR 38 L BUN/Creatinine Ratio 9.5 Glucose 114 H Lactate 2.1 Uric Acid Calcium 9.8 Phosphorus Magnesium Total Bilirubin 0.7 AST 23 ALT 18 Alkaline Phosphatase 92 Troponin I 0.019 NT-Pro-B Natriuret Pep Total Protein 6.3 Albumin 3.7 Globulin 2.6 Albumin/Globulin Ratio 1.4 Procalcitonin 0.11 SARS-CoV-2 (PCR) 01/29/22 13:14 WBC RBC Hgb Hct MCV MCH MCHC RDW Plt Count Neut % (Auto) Lymph % (Auto) [place] % (Auto) Eos % (Auto) Baso % (Auto) Lymph # (Auto) [place] # (Auto) Baso # (Auto) Total Counted Seg Neutrophils % Band Neutrophils % Lymphocytes % (Manual) Monocytes % (Manual) Eosinophils % (Manual) Metamyelocytes % Myelocytes % Neutrophils # (Manual) Dohle Bodies RBC Morphology PT INR Sodium Potassium Chloride Carbon Dioxide BUN Creatinine Estimated GFR BUN/Creatinine Ratio Glucose Lactate Uric Acid Calcium Phosphorus Magnesium Total Bilirubin AST ALT Alkaline Phosphatase Troponin I NT-Pro-B Natriuret Pep Total Protein Albumin Globulin Albumin/Globulin Ratio Procalcitonin SARS-CoV-2 (PCR) Negative Assessment & Plan Assessment & Plan narrative: 1. Leukopenia. Post chemotherapy. Improving from 2 days ago. Continue to follow. 2. Acute urinary tract infection. Obtain urine and re-culture. Continue Levaquin as ordered 2 days ago until cultures are back. 3. Concern for adverse effect of trazodone. Decreased patient dose of trazodone for this evening to only 25 mg. Follow clinically. 4. Increased neutrophil bands. Currently at 10%. Increased from 2 days ago. Consistent with acute infection. 5. Non-Hodgkin's lymphoma on chemotherapy. Follow clinically. 6. Tumor lysis syndrome. On allopurinol. Current uric acid is within normal level. Continue allopurinol. Follow clinically. 7. Increased BNP. Provide diuresis. Introduced slowly with the oral medication due to the concern of presentation with hypotension. 8. Acute kidney injury. Monitor labs. DVT prophylaxis. Enoxaparin 40 mg subcu every 24 hours Code status: CPR and no intubation Designated substitute decision maker Jose Joyner, patient's . Admit to observation with the expectation patient will be discharged prior to midnight stays, in order to evaluate treat the patient. Time Spent With Patient Critical Care time: I spent a total of [] minutes of critical care time on this patient's care today; this time is exclusive of procedural time.
[2022-01-29 16:25] LABS: Lactate 2HR (Lactic Acid Rflx) 0.8 mmol/L (0.7-2.1)
--- NOTE | 2022-01-29 16:32 | PC.NURSE ---
Day shift: Pt on unit from ED at approx 1625. Spouse in room at this time also. Pt's brief changed and skin assessed. PureWick in place and urine will be sent to lab for culture per MD orders. She is alert to self. VS WNL. RA 99%. Pt is a high fall risk. HFR protocols in place. Pt has been seen by MD. Call light in reach. BP 180/80 and MD aware. BEd aalrm is on. Door to room will be open if Spouse not in room.
[2022-01-29 17:53] LABS: Appearance Urine UA CLEAR; Bilirubin Urine UA NEGATIVE (NEGATIVE); Color Urine UA YELLOW; Glucose Urine UA NEGATIVE (Negative); Ketones Urine UA NEGATIVE (NEGATIVE); Leukocyte Esterase Urine UA NEGATIVE (NEGATIVE); Nitrite Urine UA NEGATIVE (Negative); Occult Blood Urine UA 3+ (Negative); Protein Urine UA TRACE (Negative); Urobilinogen Urine UA 0.2 E.U./dL (0.2)
[2022-01-29 18:06] LABS: pH Urine UA 6.5 (4.5-8.0)
[2022-01-29 18:11] LABS: Hematocrit 21.4 % (36-46); Hemoglobin 7.5 g/dL (12.0-16.0); Mean Corpuscular HGB Conc 34.9 % (30-36); Mean Corpuscular Hemoglobin 28.6 PG (26-34); Mean Corpuscular Volume 81.8 fL (80-100); Platelet Count 53 X10^3/uL (150-400); Red Blood Cell Count 2.62 X10^6/uL (4.0-5.2); Red Cell Distribution Width 15.9 % (11.6-14.8)
[2022-01-29 18:16] LABS: Add Manual Diff / Slide Review YES
[2022-01-29 18:22] LABS: RBC Urine 5-10/HPF (0-5/HPF); WBC Urine 5-10/HPF (0-5/HPF)
[2022-01-29 18:23] LABS: Bacteria Urine Moderate (10-30); Culture Indicated Urine Specimen Cultured; Transitional Epi Cells Urine 1-5/HPF (0-5/HPF)
[2022-01-29 18:33] LABS: Alanine Aminotransferase 15 IU/L (<35); Albumin 3.1 g/dL (3.5-5.0); Albumin Globulin Ratio 1.4 (1.0-2.8); Alkaline Phosphatase 85 U/L (38-126); Aspartate Aminotransferase 15 IU/L (14-36); BUN Creatinine Ratio 10.6 (6-22); Bilirubin Total 0.3 mg/dL (0.2-1.3); Blood Urea Nitrogen 14 mg/dL (7-17); Carbon Dioxide 24 mmol/L (22-32); Chloride 102 mmol/L (98-107); Estimated Glomerular Filt Rate 43 mL/min (>60); Globulin 2.2 g/dL (1.7-4.1); Glucose 85 mg/dL (80-110); HEMOLYSIS < 15 (0-50); Phosphorous 3.5 mg/dL (2.8-4.1); Potassium 2.8 mmol/L (3.4-5.1); Sodium 134 mmol/L (137-145); Total Protein 5.3 g/dL (6.3-8.2)
[2022-01-29 18:43] LABS: Neutrophils Absolute Manual 1080 /uL (3000-5900); Total Cells Counted 50
[2022-01-29 18:44] LABS: Anisocytosis 1+
[2022-01-29] MEDS: cefTRIAXone 1,000 MG in SODIUM CHLORIDE 0.9% 100 ML 200 MG IV (19:07)
[2022-01-29] MEDS: carvediloL 12.5 MG TABLET PO (20:04)
[2022-01-29] MEDS: GABAPENTIN 100 MG CAPSULE PO (21:56)
[2022-01-29] MEDS: TRAZODONE 50 MG TABLET 25 MG PO (21:56)
[2022-01-29] MEDS: POTASSIUM CHLORIDE 20 MEQ TAB 40 MEQ PO (21:57)
[2022-01-29] MEDS: IMIPRAMINE HCL 25 MG TABLET 50 MG PO (21:57)
[2022-01-29] MEDS: POTASSIUM CHLORIDE IN WATER 10 MEQ/100 ML PIGGYBACK 100 MEQ IV ×2 (22:08→23:22)
[2022-01-30] VITALS (10 sets, daily range): BP systolic 118–188; BP diastolic 63–108; PULSE 80–91; RESP 18–20; TEMP 36.1–37.3; O2SAT 97–100
[2022-01-30] MEDS: POTASSIUM CHLORIDE IN WATER 10 MEQ/100 ML PIGGYBACK 100 MEQ IV ×2 (00:24→01:26)
[2022-01-30 07:24] LABS: Add Manual Diff / Slide Review YES; Hematocrit 21.7 % (36-46); Hemoglobin 7.5 g/dL (12.0-16.0); Mean Corpuscular HGB Conc 34.7 % (30-36); Mean Corpuscular Hemoglobin 28.7 PG (26-34); Mean Corpuscular Volume 82.6 fL (80-100); Platelet Count 55 X10^3/uL (150-400); Red Blood Cell Count 2.63 X10^6/uL (4.0-5.2); Red Cell Distribution Width 16.1 % (11.6-14.8)
[2022-01-30 07:34] LABS: Alanine Aminotransferase 15 IU/L (<35); Albumin 3.1 g/dL (3.5-5.0); Albumin Globulin Ratio 1.3 (1.0-2.8); Alkaline Phosphatase 90 U/L (38-126); Aspartate Aminotransferase 15 IU/L (14-36); BUN Creatinine Ratio 8.7 (6-22); Bilirubin Total 0.4 mg/dL (0.2-1.3); Blood Urea Nitrogen 11 mg/dL (7-17); Calcium 9.1 mg/dL (8.4-10.2); Carbon Dioxide 25 mmol/L (22-32); Chloride 104 mmol/L (98-107); Estimated Glomerular Filt Rate 45 mL/min (>60); Globulin 2.3 g/dL (1.7-4.1); Glucose 95 mg/dL (80-110); HEMOLYSIS < 15 (0-50); Potassium 3.8 mmol/L (3.4-5.1); Sodium 135 mmol/L (137-145); Total Protein 5.4 g/dL (6.3-8.2)
[2022-01-30] MEDS: FUROSEMIDE 20 MG TABLET PO (08:06)
[2022-01-30] MEDS: allopurinoL 100 MG TABLET PO (08:07)
[2022-01-30] MEDS: SERTRALINE 50 MG TABLET 100 MG PO (08:07)
[2022-01-30] MEDS: ACETAMINOPHEN 325 MG TABLET PO ×2 (08:08→16:40)
[2022-01-30] MEDS: carvediloL 12.5 MG TABLET PO ×2 (08:08→20:21)
[2022-01-30] MEDS: AMLODIPINE 5 MG TABLET 2.5 MG PO (08:08)
[2022-01-30] MEDS: ENOXAPARIN 40 MG/0.4 ML SYRINGE SUBCUT (08:10)
[2022-01-30 08:45] LABS: Neutrophils Absolute Manual 1540 /uL (3000-5900); Total Cells Counted 100
[2022-01-30 08:46] LABS: RBC Morphology Normal Morphology
[2022-01-30 08:47] LABS: Platelet Estimate Decreased on smear
--- NOTE | 2022-01-30 08:56 | PT.IIE ---
Surgical History (Last Reviewed 01/29/22 @ 17:04 by Melania Sarmiento MD) H/O breast biopsy (~1985) History of appendectomy (~1966) History of surgery (03/03/18) History of thoracentesis Hx of lymph node biopsy (2017) Medical History (Last Reviewed 01/29/22 @ 17:04 by Melania Sarmiento MD) Acute kidney injury Anxiety Arthritis CKD (chronic kidney disease) Diffuse lymphadenopathy Headache, migraine History of depression History of non-Hodgkin's lymphoma HLD (hyperlipidemia) HTN (hypertension) Hx of thyroid nodule Hydronephrosis, left Left renal mass Low back pain Neuropathy Panic disorder Renal mass Rheumatoid arthritis Physical Therapy Inpatient Evaluation/Re-Eval M1 PT/OT-IP Prior Functional Status Start: 01/30/22 08:51 Freq: NEEDED Status: Active Protocol: Document 01/30/22 08:56 DCW (Rec: 01/30/22 10:12 [facility] [id number]) Medical Review Prior Functional Status Medical History Reviewed Yes Communication WNL Mobility and Gait Uses 4WW for ambulation around the home, minimal activity at baseline Activities of Daily Living and IADL's is primary caregiver Social History Household Members spouse Living Arrangements House Number of Floors (Floors) One Floor Number of Stairs To Enter/Railing? 4, L ascending railing Home Equipment Four Wheel Walker,Quad Cane, Shower Seat with Backrest M2 PT-IP Current Condition Start: 01/30/22 08:51 Freq: NEEDED Status: Active Protocol: Document 01/30/22 08:56 DCW (Rec: 01/30/22 10:12 [facility] [id number]) Physical Therapy Current Condition Current Condition Evaluation Date 01/30/22 Treatment Diagnosis Weakness, orthostasis Onset Date 01/29/22 M3 PT-IP Subjective Start: 01/30/22 08:51 Freq: NEEDED Status: Active Protocol: Document 01/30/22 08:56 DCW (Rec: 01/30/22 10:12 DC [id number]) Subjective Physical Therapy Visit Type Type Initial Evaluation Visit Start Time 08:56 Visit Stop Time 09:32 Total Visit Minutes 36 Notes Pt is a 71 year old female who presented to the ED on 01/29/22 following multiple falls and near syncopal episodes at home . After her most recent near- syncopal episode, hand ii thermal cutter measured her BP at 68/40 and transported her to the ED. Since arriving, BP has fluctuated a bit. Pt additionally currently undergoing treatment for B- cell lymphoma. Lab values at time of eval subtherapeutic, Hgb 7.5, Hct at 21.7, but hospitalist cleared pt for PT, at least wanted to try to obtain orthostatic BPs. Number of VACUUM WORKER Visits 0 Physical Therapy Visit Comments Patient Comments My back is sore from laying in bed so much. M4 PT-IP Mobility and Gait Start: 01/30/22 08:51 Freq: NEEDED Status: Active Protocol: Document 01/30/22 08:56 DCW (Rec: 01/30/22 10:12 [facility] [id number]) PT-Bed Mobility Assessment Rolling Type of Rolling Roll to Right Level of Assist Minimal Assistance Supine to Sit Supine to Sit Minimal Assistance Sit to Supine Sit to Supine Moderate Assistance Scooting Scooting to Edge of Bed Standby Assistance Scooting Up and Down in Bed Maximum Assistance PT-Transfer Assessment Sit to and From Stand Sit to and from Stand Contact Guard Assistance, Maximum Assistance Equipment Transfer Assistive Device Bed Rail,Gait Belt,Front Wheeled Walker Comments Mobility Comments Pt did fairly well getting OOB , required APPRISE COUNSELOR rolling onto right side and performing side -lying->sit transfer. After significant BP drop upon standing, pt required much more assistance getting back into bed, along with Max Ax2 to scoot up in bed. PT-Balance Assessment Sitting Balance and Reactions Static Sitting Balance Ability Good Dynamic Sitting Balance Ability Good Standing Balance and Reactions Static Standing Balance Ability Poor M5 PT-IP Objective Assessments Start: 01/30/22 08:51 Freq: NEEDED Status: Active Protocol: Document 01/30/22 08:56 DCW (Rec: 01/30/22 10:12 [facility] [id number]) Orientation Orientation/Cognition Level of Alertness Confusional State Orientation Name,Birthday,Date,Place Safety Awareness Decreased Safety Awareness Comments Pt level of alertness and orientation varied throughout treatment, at times very clear , other times much more confused. Gross Range of Motion Lower Extremity ROM Assessment Within Functional Limits Strength Comments Strength Comments Able to move LEs through full ROM against gravity. No full MMT testing performed due to low H&H M6 PT-IP Treatment Start: 01/30/22 08:51 Freq: NEEDED Status: Active Protocol: Document 01/30/22 08:56 DCW (Rec: 01/30/22 10:12 [facility] [id number]) Physical Therapy Treatment Exercises Exercises Ankle Pumps,Straight Leg Raises Other Treatments Other Treatment Performed LAQ M7 PT-IP Assessment and Plan Start: 01/30/22 08:51 Freq: NEEDED Status: Active Protocol: Document 01/30/22 08:56 DCW (Rec: 01/30/22 10:12 [facility] [id number]) PT Summary Assessment and Plan Potential Status of Condition at Evaluation Unstable Summary Impairments Balance,Cognition,Transfers, Gait,Activity Tolerance Assessment Summary Pt alert and oriented upon PT arrival in room, awake and conversing with her , who was seated in room recliner. Supine BP measured at 111/59. Pt largely performed supine->sitting EOB transfer under own power, just mild APPRISE COUNSELOR for something to pull on. Upon sitting, pt noted she felt fine, no lightheadedness. Immediate seated BP 90/43, wilber to 100/ 52 four minutes later.Pt noted she felt good enough to stand , immediately became dizzy and more confused, knee began to buckle, therapist had to repeat multiple times for pt to sit down, unable to get any BP reading at this time. Upon sitting, pt slightly more confused than at baseline, required increased assistance to return to supine. BP then measured at 118/94. MOBILE LOUNGE DRIVER OR OPERATOR entered to assist PT scoot pt back up in bed. Bed alarm turned back on and call light placed within reach. Daughter then entered the room, pt cognition returned largely to baseline, but then forgot she was until reminded by daughter. May need to wait until H&H values increase prior to another attempt at standing. Goals Bed Mobility Goal Standby Assistance Transfer Goal Standby Assistance Gait Goal Minimal Assistance,Front Wheel Walker,Four Wheel Walker Gait Distance 50' Days to Meet Goals 2 Frequency of Treatment Frequency Of Treatment Once a Day Treatment Plan Physical Therapy Treatment Plan Bed Mobility Training,Transfer Training,Therapeutic Exercise Other Recommendations and Next Treatment If H&H values remain sub- Focus therapeutic, work on supine bed activities, LE strengthening, bed mobility. If H&H has increased, may try standing, continue to observe orthostatic BP values Recommendations To Nursing Amount of Assist Needed PT/OT Assist Only Discharge Recommendations PT Discharge Recommendations Home vs SNF
--- NOTE | 2022-01-30 09:10 | CM.DANOTE ---
Addendum entered by Elizabeth French R.N. 01/30/22 13:08: DCP Cont: Provided pt spouse with Advance care directive pamphlet. Message left for Celia @ Oncology to call them back on Wednesday. Spouse states there is an appointment with Oncology @ [facility] on Wednesday. Elizabeth French RN/MANAS Original Note: DCP Assessment: Payor: Medicare & [facility] PCP: Ana Marie MD Pt is a 71 y.o. F who presented to the ER via ambulance for a near syncopal episode. Pt has a PMH of HTN, B-cell lymphoma, confusion, left renal mass with CKD, and neutropenia. Pt has PAC in place. Pt is currently under the care of Dr. Herr @ [facility] and undergoing chemotherapy. Pt admitted for TLS and further management and eval of symptoms. DCP met with pt this morning to discuss discharge needs. Pt sitting up in bed with spouse, Jose, at the bedside. DCP introduced herself and role. DCP directed most questions to spouse as pt expressed confusion on some of the questions being asked. Jose states that they live in a single story home with a very steep driveway and 4 steps leading up to the backdoor. Jose states that the pt uses a walker at baseline but also owns a scissor cane and stool assist device for the toilet. Spouse states that he is her primary caregiver and main source of transportation. Spouse states they have family in the area and neighbors nearby who are able to help when needed. DCP suggested looking into private caregivers and spouse states, I have called 3 agencies already and they all want to be on a schedule. DCP to provide senior resources pamphlet to spouse. Spouse asked DCP if she could let Jeanette know in Oncology to help with DPOA paperwork. DCP to put call out to Jeanette. Spouse denies any other resources at this time. Whiteboard updated and instructed to call. Pt and pt spouse thankful for discussion. P: PT/OT ordered for eval. Pending evals to determine further needs of care. Elizabeth French RN/MANAS Discharge Planning/Care Management CM Discharge Assessment Start: 01/30/22 09:08 Freq: Status: Active Protocol: Document 01/30/22 09:08 EDUARDO (Rec: 01/30/22 09:09 EDUARDO [id number]) Discharge Planning Assessment Assigned Seed Tester Elizabeth French RN/MNAAS Advance Directives? No Advance Directives on File No History Provided By Significant Other Prior Living Arrangements House Household Members spouse Type of transporation used prior to Relies on Others admit Independent with ADL's Yes Is patient alert and oriented? Yes Caregiver for Another No DME Already Rented / Owned Elevated Toilet Seat,FWW / Walker,Cane Discharge Plan Home Transportation Arrangement Spouse POV Referrals Initiated None needed Additional Comment At this time. Whiteboard Updated in Patient Room with Yes name and ext. # of Seed Tester Comment Instructed to call Review Status In Process Please Provide Date Initial DC 01/30/22 Assessment Was Performed Next Review Type Continued Stay Review
--- NOTE | 2022-01-30 10:38 | OT.IPNOTE ---
Hospitalist cleared therapy to work with pt . PT able to see pt and having orthostatic hypotension, see PT eval note. Therefore to hold OT today and check on the pt tomorrow for OT eval.
--- NOTE | 2022-01-30 11:19 | DIET.CONS ---
Dietary Consultation Note Admission Date: 01/29/2022 15:02 Assessment: 71y F admitted for multiple falls and syncope (BP 68/40) c UTI and HgB 7.5 undergoing chemotherapy at [facility] for lymphoma referred to nutrition for high malnutrition risk (MNA 8). Met c pt, spouse, and supportive daughter at bedside. Pt with intermittent confusion and taste changes leading to poor POs as evidenced by 14.1% unintentional weight loss over the past 2w (severe). Pt doing better eating with 1:1 feeding, however, foods often tasting sour or she is too confused to take a bite. Pts giving her 0% fat ukrainian yogurt daily, fruit and vegetable powder mixed in water, electrolyte beverage, and daughter is making variety of vegetable soups, eggs. Pt reports weakness and use of 4WW along with her weight loss, endorsed by family. Ht: 152.4 cm Wt: 60.5 kg (-14% in 2w, severe) BMI: 26.0 UBW: 75kg Last BM: 01/27/22 (01/29/22 18:29) MNA: 8 Ulisses Score: 18 Diet: 01/30/22 Breakfast General (Regular) Diet Diet Modifications: high kcal/high pro, collagen protein in soups Labs: RBC 2.63 X10^6/uL (4.0-5.2) L 01/30/22 07:15 Hgb 7.5 g/dL (12.0-16.0) L 01/30/22 07:15 Hct 21.7 % (36-46) L 01/30/22 07:15 Creatinine 1.26 mg/dL (0.52-1.04) H 01/30/22 07:15 Lactate 0.8 mmol/L (0.7-2.1) 01/29/22 15:50 NT-Pro-B Natriuret Pep 1150 pg/mL (<125) H 01/29/22 12:45 Nutrition Diagnosis: Severe Acute Protein Calorie Malnutrition r/t confusion and taste changes aeb pt undergoing chemotherapy for b-cell lymphoma, 14.1% unintentional weight loss in 2w (severe), pt states food tastes sour, pt avoiding or limiting food r/t mental status, family providing variety low kcal foods daily meeting <50% EER. Interventions: 1. To support nutrition status, educated pts family on high kcal/high pro MNT for cancer patients. Collaborated c family on modifications to current acceptable foods includin% fat ukrainian yogurt, adding collagen protein to all warm/cold drinks and soups, including adding heavy cream and olive oil to soups and eggs, trialing high protein smoothies, having food visible for pt to snack on. 2. To support feeding pt when confused, recc having schedule for meals and snacks, reducing pt's need to make choices on food, having items out in bowls for pt to visually see to snack on. 3. To support pts taste changes c chemotherapy, recc adding maple syrup to sour foods or other sweetener of choice. EER: 2,100kcals (35kcal/kg per PCM), 66-78g PRO (1.1-1.3g/kg per PCM-renal) Monitoring/Evaluations: I&Os, POs, ONS tolerance (collagen), supporting family prn Electronically Signed by: Suzie Cortez 01/30/22 11:19 Clinical Dietitian [address] [id number]
[2022-01-30] MEDS: SODIUM CHLORIDE 0.9% 1,000 ML 100 ML IV (16:39)
--- NOTE | 2022-01-30 17:08 | P.PN_ITS ---
Subjective Subjective Date Patient Seen: 01/30/22 Time Patient Seen: 10:00 Interval history: Patient feeling better today. at the bedside and says she this is the clearest she has been. No other complaints. Exam Vital Signs (past 8 hours): - 01/30/22 12:35 01/30/22 12:50 01/30/22 15:30 Temperature 98.1 F 98.5 F 98.5 F Pulse Rate 88 87 89 Respiratory Rate 20 20 18 Blood Pressure 134/108 H 143/65 H 161/74 H Pulse Oximetry 97 Oxygen Flow Rate 0 Oxygen Delivery Method Room Air Oxygen Flow Rate 0 Narrative Exam Narrative: General: cooperative, comfortable, alert and oriented, in no acute distress, denies any pain HEENT: symmetrical facial expressions, moist mucous membranes, head normocephalic. Midline. Cardiovascular: regular rate and rhythm, no peripheral edema, S1-S2 with rub, no gallops, warm extremity without peripheral edema Respiratory: normal effort, able to speak in complete sentences, no wheezing, stridor, or abnormal breath sounds. GI: abdomen soft, nontender to palpation, nondistended, without masses, no tenderness MSK: moves all extremities, no weakness, normal tone Skin: without pallor or erythema, no rashes or lesions Neuro: normal speech and confusion is normal for patient at baseline, appears to be oriented to person and place Psych: Now oriented. Objective Labs Result Diagrams: 01/30/22 07:15 01/30/22 07:15 Labs: Laboratory Results - last 24 hr 01/29/22 01/29/22 01/29/22 17:05 17:05 17:45 WBC 1.5 L* RBC 2.62 L Hgb 7.5 L Hct 21.4 L MCV 81.8 MCH 28.6 MCHC 34.9 RDW 15.9 H Plt Count 53 L Neut % (Auto) Not Reportable Lymph % (Auto) Not Reportable [place] % (Auto) Not Reportable Eos % (Auto) Not Reportable Baso % (Auto) Not Reportable Lymph # (Auto) Not Reportable [place] # (Auto) Not Reportable Baso # (Auto) Not Reportable Total Counted 50 Seg Neutrophils % 56.0 Band Neutrophils % 16.0 H Lymphocytes % (Manual) 14.0 L Monocytes % (Manual) 12.0 H Eosinophils % (Manual) Basophils % (Manual) Metamyelocytes % 2.0 H Neutrophils # (Manual) 1080 L Platelet Estimate RBC Morphology See below Anisocytosis 1+ H Sodium Potassium Chloride Carbon Dioxide BUN Creatinine Estimated GFR BUN/Creatinine Ratio Glucose Calcium Phosphorus Total Bilirubin AST ALT Alkaline Phosphatase Total Protein Albumin Globulin Albumin/Globulin Ratio Urine Color Cancelled Yellow Urine Appearance Cancelled Clear Urine pH Cancelled 6.5 Ur Specific [place] Cancelled 1.010 Urine Protein Cancelled Trace H Urine Glucose (UA) Cancelled Negative Urine Ketones Cancelled Negative Urine Occult Blood Cancelled 3+ H Urine Nitrate Cancelled Negative Urine Bilirubin Cancelled Negative Urine Urobilinogen Cancelled 0.2 Ur Leukocyte Esterase Cancelled Negative Urine RBC 5-10/hpf H Urine WBC 5-10/hpf H Ur Transition Epith Cell 1-5/hpf Urine Bacteria Moderate (10-30) H Ur Culture Indicated? Specimen cultured Blood Type Antibody Screen Crossmatch 01/29/22 01/30/22 01/30/22 17:45 07:15 07:15 WBC 2.0 L RBC 2.63 L Hgb 7.5 L Hct 21.7 L MCV 82.6 MCH 28.7 MCHC 34.7 RDW 16.1 H Plt Count 55 L Neut % (Auto) Not Reportable Lymph % (Auto) Not Reportable [place] % (Auto) Not Reportable Eos % (Auto) Not Reportable Baso % (Auto) Not Reportable Lymph # (Auto) Not Reportable [place] # (Auto) Not Reportable Baso # (Auto) Not Reportable Total Counted 100 Seg Neutrophils % 53.0 Band Neutrophils % 24.0 H Lymphocytes % (Manual) 9.0 L Monocytes % (Manual) 9.0 Eosinophils % (Manual) 2.0 Basophils % (Manual) 1.0 Metamyelocytes % 2.0 H Neutrophils # (Manual) 1540 L Platelet Estimate Decreased on smear RBC Morphology Normal morphology Anisocytosis Sodium 134 L 135 L Potassium 2.8 L 3.8 Chloride 102 104 Carbon Dioxide 24 25 BUN 14 11 Creatinine 1.32 H 1.26 H Estimated GFR 43 L 45 L BUN/Creatinine Ratio 10.6 8.7 Glucose 85 95 Calcium 9.0 9.1 Phosphorus 3.5 Total Bilirubin 0.3 0.4 AST 15 15 ALT 15 15 Alkaline Phosphatase 85 90 Total Protein 5.3 L 5.4 L Albumin 3.1 L 3.1 L Globulin 2.2 2.3 Albumin/Globulin Ratio 1.4 1.3 Urine Color Urine Appearance Urine pH Ur Specific [place] Urine Protein Urine Glucose (UA) Urine Ketones Urine Occult Blood Urine Nitrate Urine Bilirubin Urine Urobilinogen Ur Leukocyte Esterase Urine RBC Urine WBC Ur Transition Epith Cell Urine Bacteria Ur Culture Indicated? Blood Type Antibody Screen Crossmatch 01/30/22 09:38 WBC RBC Hgb Hct MCV MCH MCHC RDW Plt Count Neut % (Auto) Lymph % (Auto) [place] % (Auto) Eos % (Auto) Baso % (Auto) Lymph # (Auto) [place] # (Auto) Baso # (Auto) Total Counted Seg Neutrophils % Band Neutrophils % Lymphocytes % (Manual) Monocytes % (Manual) Eosinophils % (Manual) Basophils % (Manual) Metamyelocytes % Neutrophils # (Manual) Platelet Estimate RBC Morphology Anisocytosis Sodium Potassium Chloride Carbon Dioxide BUN Creatinine Estimated GFR BUN/Creatinine Ratio Glucose Calcium Phosphorus Total Bilirubin AST ALT Alkaline Phosphatase Total Protein Albumin Globulin Albumin/Globulin Ratio Urine Color Urine Appearance Urine pH Ur Specific [place] Urine Protein Urine Glucose (UA) Urine Ketones Urine Occult Blood Urine Nitrate Urine Bilirubin Urine Urobilinogen Ur Leukocyte Esterase Urine RBC Urine WBC Ur Transition Epith Cell Urine Bacteria Ur Culture Indicated? Blood Type O Positive Antibody Screen Negative Crossmatch See Detail [facility] Medical History Acute kidney injury Anxiety Arthritis CKD (chronic kidney disease) Diffuse lymphadenopathy Headache, migraine History of depression History of non-Hodgkin's lymphoma HLD (hyperlipidemia) HTN (hypertension) Hx of thyroid nodule Hydronephrosis, left Left renal mass Low back pain Neuropathy Panic disorder Renal mass Rheumatoid arthritis Surgical History H/O breast biopsy (~1985) History of appendectomy (~1966) History of surgery (03/03/18) History of thoracentesis Hx of lymph node biopsy (2018) Family History Mother Hypertension Stroke IBS (irritable bowel syndrome) Thyroid disease Brother Hodgkins lymphoma Grandmother Stroke Social History marital status: number of children: 2 household members: spouse Smoking Status: Never smoker alcohol intake: former Type(s) of exercise: other frequency: 5-6 times per week Assessment & Plan Assessment & Plan narrative: 1. Leukopenia. Post chemotherapy. Improving from 2 days ago. Continue to follow. 2. Acute urinary tract infection. Urine culture with GNR's likely E. coli. Continue rocephin x3 days. 3. Concern for adverse effect of trazodone. Decreased patient dose of trazodone for this evening to only 25 mg. Follow clinically. 4. Increased neutrophil bands. Currently at 10%. Increased from 2 days ago. Consistent with acute infection. 5. Non-Hodgkin's lymphoma on chemotherapy. Follow clinically. Spoke with Dr. Kearns who agreed with above management. 6. Tumor lysis syndrome. On allopurinol. Current uric acid is within normal level. Continue allopurinol. Follow clinically. 7. Orthostatic hypotension. Start IVF. Hold home amlodipine. 8. Acute kidney injury. Monitor labs. Improving. 9. Anemia, likely secondary to bone marrow suppression from chemo. Hgb 7.5. Will get 1 unit PRBC to get above threshold of 8. Dr. Kearns agrees with this. DVT prophylaxis. Enoxaparin 40 mg subcu every 24 hours Code status: CPR and no intubation Designated substitute decision maker Jose Joyner, patient's . Dispo: Likely dc home on 01/31. Time Spent With Patient Critical Care time: I spent a total of [] minutes of critical care time on this patient's care tod ay; this time is exclusive of procedural time. Quality VTE Deep Vein Thrombosis/Pulmonary Embolism Present on Admission: No
[2022-01-30] MEDS: cefTRIAXone 1,000 MG in SODIUM CHLORIDE 0.9% 100 ML 200 MG IV (19:29)
[2022-01-30] MEDS: IMIPRAMINE HCL 25 MG TABLET 50 MG PO (20:21)
[2022-01-30] MEDS: GABAPENTIN 100 MG CAPSULE PO (20:21)
[2022-01-30] MEDS: TRAZODONE 50 MG TABLET 25 MG PO (20:21)
[2022-01-31] MEDS: SODIUM CHLORIDE 0.9% 1,000 ML 100 ML IV (02:12)
[2022-01-31 04:08] VITALS: BP 158/73; PULSE 79; RESP 16; TEMP 36.3; O2SAT 98
[2022-01-31 05:47] LABS: Hemoglobin 9.5 g/dL (12.0-16.0); Mean Corpuscular Hemoglobin 28.5 PG (26-34); Mean Corpuscular Volume 81.3 fL (80-100); Platelet Count 67 X10^3/uL (150-400); Red Blood Cell Count 3.35 X10^6/uL (4.0-5.2); Red Cell Distribution Width 15.8 % (11.6-14.8); White Blood Cell Count 3.2 X10^3/uL (4.5-11.0)
[2022-01-31 05:53] LABS: Add Manual Diff / Slide Review YES; BUN Creatinine Ratio 10.3 (6-22); Blood Urea Nitrogen 12 mg/dL (7-17); Calcium 8.6 mg/dL (8.4-10.2); Carbon Dioxide 23 mmol/L (22-32); Chloride 105 mmol/L (98-107); Estimated Glomerular Filt Rate 50 mL/min (>60); Glucose 96 mg/dL (80-110); HEMOLYSIS < 15 (0-50); Hematocrit 27.2 % (36-46); Potassium 3.4 mmol/L (3.4-5.1); Sodium 137 mmol/L (137-145)
[2022-01-31 08:13] LABS: Neutrophils Absolute Manual 2272 /uL (3000-5900); Total Cells Counted 100
[2022-01-31 08:14] LABS: Platelet Estimate Decreased on smear
[2022-01-31 09:00] VITALS: BP 101/44; BP 123/61; BP 124/50
[2022-01-31] MEDS: SERTRALINE 50 MG TABLET 100 MG PO (09:33)
[2022-01-31] MEDS: cefTRIAXone 1,000 MG in SODIUM CHLORIDE 0.9% 100 ML 200 MG IV (09:34)
[2022-01-31 09:35] VITALS: BP 158/73
[2022-01-31] MEDS: allopurinoL 100 MG TABLET PO (09:35)
[2022-01-31] MEDS: carvediloL 12.5 MG TABLET PO (09:35)
[2022-01-31] MEDS: POTASSIUM CHLORIDE 20 MEQ TAB 40 MEQ PO (09:40)
[2022-01-31 10:30] VITALS: BP 123/61; BP 124/50; BP 91/44; PULSE 115; PULSE 93
[2022-01-31 10:35] VITALS: BP 124/50; PULSE 93; RESP 18; TEMP 37.1; O2SAT 99
--- NOTE | 2022-01-31 10:58 | PT.IPTN ---
Physical Therapy Treatment Note M2 PT-IP Current Condition Start: 01/30/22 08:51 Freq: NEEDED Status: Active Protocol: Document 01/30/22 08:56 DCW (Rec: 01/30/22 10:12 DCW [id number]) Physical Therapy Current Condition Current Condition Evaluation Date 01/30/22 Treatment Diagnosis Weakness, orthostasis Onset Date 01/29/22 M3 PT-IP Subjective Start: 01/30/22 08:51 Freq: NEEDED Status: Active Protocol: Document 01/31/22 10:33 KS (Rec: 01/31/22 12:00 KS [id number]) Subjective Physical Therapy Visit Type Type Treatment Note Visit Start Time 10:33 Visit Stop Time 10:58 Total Visit Minutes 25 Notes BP readings: Supine:123/61 Sittin/50 Standin/44 Standing 3-4 min: 79/53 Sittin/63 Supine: 138/65 Number of GLOVE [employer]ARDER Visits 1 Physical Therapy Visit Comments Patient Comments Pts spouse present. M4 PT-IP Mobility and Gait Start: 01/30/22 08:51 Freq: NEEDED Status: Active Protocol: Document 01/31/22 10:33 KS (Rec: 01/31/22 12:00 KS [id number]) PT-Bed Mobility Assessment Rolling Type of Rolling Roll to Right Level of Assist Minimal Assistance Supine to Sit Supine to Sit Minimal Assistance Sit to Supine Sit to Supine Minimal Assistance Scooting Scooting to Edge of Bed Standby Assistance PT-Transfer Assessment Sit to and From Stand Sit to and from Stand Contact Guard Assistance, Minimal Assistance,1 Person Assistance,Use of Upper Extremities Equipment Transfer Assistive Device Gait Belt,Front Wheeled Walker Orthotic/Prosthetic Devices or Brace: No Transfers Transfer Destination Bed Transfer Technique Lateral steps w/ FWW Transfer Ability Level of Assist Minimal Assistance,1 Person Assistance,Use of Upper Extremities Comments Mobility Comments Pt in bed and in room upon arrival from PT. Pt agreeable to mobilize but has difficulty following instructions due to confusion. Min A and cues for sup<>sit, CGA for scooting EOB. Pt able to sit<>stand w/ FWW Min A and stood ~4 min during BP readings. Pts BP dropped from 123/61 supine to 79/53 standing, but pt denied any symptoms and was able to take lateral steps towards HOB w/ Min A for FWW mgmt. She sat back down and BP increased to 133/63 and she performed 2x10 ankle pumps, quad sets, and seated marching. Min A for sit <>sup, pt left in bed w/ OT in room. Gait Assessment Gait Gait Assistance Required: Minimum Assistance,1 Person Assist Distance (Feet) 2 Assistive Devices Assistive Device Gait Belt,Front Wheeled Walker Factors Limiting Gait Function Factors Limiting Gait Function Decreased Activity Tolerance, Decreased Strength,Difficulty Following Directions, Incoordination,Poor Balance, Poor Safety Awareness Comments Gait Comments Lateral steps towards HOB only , requires cues and FWW mgmt. Stair Climbing Assessment Comments Stair Climbing Comments Did not assess due to low BP. PT-Balance Assessment Sitting Balance and Reactions Static Sitting Balance Ability Good Dynamic Sitting Balance Ability Good Standing Balance and Reactions Static Standing Balance Ability Fair Device Used FWW M5 PT-IP Objective Assessments Start: 01/30/22 08:51 Freq: NEEDED Status: Active Protocol: Document 01/30/22 08:56 DCW (Rec: 01/30/22 10:12 DCW [id number]) Orientation Orientation/Cognition Level of Alertness Confusional State Orientation Name,Birthday,Date,Place Safety Awareness Decreased Safety Awareness Comments Pt level of alertness and orientation varied throughout treatment, at times very clear , other times much more confused. Gross Range of Motion Lower Extremity ROM Assessment Within Functional Limits Strength Comments Strength Comments Able to move LEs through full ROM against gravity. No full MMT testing performed due to low H&H M6 PT-IP Treatment Start: 01/30/22 08:51 Freq: NEEDED Status: Active Protocol: Document 01/31/22 10:33 KS (Rec: 01/31/22 12:00 KS [id number]) Physical Therapy Treatment Exercises Exercises Ankle Pumps,Quad Sets Other Treatments Other Treatment Performed Seated marching M7 PT-IP Assessment and Plan Start: 01/30/22 08:51 Freq: NEEDED Status: Active Protocol: Document 01/31/22 10:33 KS (Rec: 01/31/22 12:00 KS [id number]) PT Summary Assessment and Plan Potential Rehabilitation Potential Good Summary Impairments Balance,Cognition,Transfers, Gait,Activity Tolerance Progress Towards Goals Slow Progress due to Medical Issues,Slow Progress due to Activity Tolerance Assessment Summary Pt continues to have low BP w/ positional changes this AM - from 123/61 supine to 79/53 standing, but denies any symptoms. She required Min A for mobility w/ frequent cues to complete tasks and FWW mgmt when standing and taking lateral steps. reports pt has been getting very confused lately, he is unable to provide physical assist. Reports daughter may be able to provide additional assist. If going home, 24/7 assist and HH would be needed. Goals Bed Mobility Goal Standby Assistance Transfer Goal Standby Assistance Gait Goal Minimal Assistance,Front Wheel Walker,Four Wheel Walker Gait Distance 50' Days to Meet Goals 2 Frequency of Treatment Frequency Of Treatment Once a Day Treatment Plan Physical Therapy Treatment Plan Bed Mobility Training,Transfer Training,Therapeutic Exercise Recommendations To Nursing Amount of Assist Needed 1 Person Assist Discharge Recommendations PT Discharge Recommendations Home with 24/7 Assist Available,Home Health,Home vs SNF Transportation Needs at Discharge Private Vehicle,Wheelchair/ Cabulance
--- NOTE | 2022-01-31 11:13 | OT.IP.EVAL ---
Past Medical History (Last Reviewed 01/29/22 @ 17:04 by Melania Sarmiento MD) Acute kidney injury Anxiety Arthritis CKD (chronic kidney disease) Diffuse lymphadenopathy Headache, migraine History of depression History of non-Hodgkin's lymphoma HLD (hyperlipidemia) HTN (hypertension) Hx of thyroid nodule Hydronephrosis, left Left renal mass Low back pain Neuropathy Panic disorder Renal mass Rheumatoid arthritis Surgical History (Last Reviewed 01/29/22 @ 17:04 by Melania Sarmiento MD) H/O breast biopsy (~1985) History of appendectomy (~1966) History of surgery (03/03/18) History of thoracentesis Hx of lymph node biopsy (2017) Occupational Therapy Inpatient Evaluation/Re-Eval M1 PT/OT-IP Prior Functional Status Start: 01/30/22 08:51 Freq: NEEDED Status: Active Protocol: Document 01/31/22 12:08 [facility] (Rec: 01/31/22 12:37 [facility] [id number]) Medical Review Prior Functional Status Medical History Reviewed Yes Communication WNL Mobility and Gait Uses 4WW for ambulation around the home, minimal activity at baseline Activities of Daily Living and IADL's is primary caregiver and assist with all her needs. Pt unable to lift and therefore their daughter comes to assist for showering needs . Social History Household Members spouse Living Arrangements House Number of Floors (Floors) One Floor Number of Stairs To Enter/Railing? 4, L ascending railing Home Environment Standard Height Toilet,Walk in Shower Home Equipment Four Wheel Walker,Quad Cane, Shower Seat with Backrest M2 OT-IP Current Condition Start: 01/31/22 12:07 Freq: Status: Active Protocol: Document 01/31/22 12:08 [facility] (Rec: 01/31/22 12:37 [facility] [id number]) Occupational Therapy Current Condition Current Condition Evaluation Date 01/31/22 Treatment Diagnosis UTI, orthostasis Diagnosis Onset Date 01/29/22 M3 OT- IP Subjective and Pain Start: 01/31/22 12:07 Freq: Status: Active Protocol: Document 01/31/22 12:08 [facility] (Rec: 01/31/22 12:37 [facility] [id number]) OT- Subjective Occupational Therapy Visit Type Type Initial Evaluation Visit Start Time 10:33 Visit Stop Time 11:13 Total Visit Minutes 40 Occupational Therapy Visit Comments Patient Comments Pt agreed to get up after checking on her multiple times as she was still eating. Pt's in the room. Patient/Caregiver Goals To go home. OT Pain Assessment Pain When Pain Assessed At Rest Pain Present Pain Present Denied Pain M4 OT- IP ADL's Start: 01/31/22 12:07 Freq: Status: Active Protocol: Document 01/31/22 12:08 [facility] (Rec: 01/31/22 12:37 [facility] [id number]) OT [id number] Comments OT Self-Feeding Comments Not at meal time. Pt's states often assists her for meals at times due to her confusion. Educated pt and her to be sure to sit upright for meals, alternate between solids and liquids, take smaller bites and monitor rate. OT ADL-Grooming Comments OT Grooming Comments Pt a bit confused and not knowing what to do initially when given a wash cloth, but eventually able to wash her face. OT ADL-Oral Care General Eval Oral Care Ability Standby Assistance Areas of Assistance Managing Dentures Comments Oral Care Comments Assist to open items amd vc for sequencing of task and completeness. Pt's states at home assist her for all needs that do not involve any lifting as he is unable to lift. OT ADL-Dressing Comments OT Dressing Comments Pt needing extension assist due to her confusion. Pt's states assists her at home for all needs as well due to her confusion at times. OT ADL-Toileting Comments OT Toileting Comments Pt wearing brief. Suggested to get a BSC for home use. OT ADL-Bathing Comments OT Bathing Comments Due to low BP reading sponge bath more appropriate at this time. M5 OT- IP IADL's Start: 01/31/22 12:07 Freq: Status: Active Protocol: Document 01/31/22 12:08 [facility] (Rec: 01/31/22 12:37 [facility] [id number]) OT-Instrumental Activities of Daily Living Deficits IADL Deficits Identified Deficits Home Safety Awareness Awareness of Need for Assistance at Home Decreased Awareness Ability to Problem Solve Emergency Able to Problem Solve Situations Home Safety Comments Pt's assist pt for all ADl and IADl needs. Medication Management Medication Management Caregiver Administers Money Management Money Management Caregiver Provides Assistance Meal Preparation Meal Preparation Caregiver Provides Assist Driving Driving Caregiver Provides Assist M6 OT- IP Functional Cognition Start: 01/31/22 12:07 Freq: Status: Active Protocol: Document 01/31/22 12:08 [facility] (Rec: 01/31/22 12:37 [facility] [id number]) Cognitive Factors Limiting Selfcare Function Cognitive Ability Level of Alertness Alert,Confusional State Patient Orientation Name Attention Span Ability Capable of Focused Attention, Unable to Focus Ability to Follow Commands Able to Follow One Step Commands with Increased Time, Able to Follow One Step Commands with Repetition Cognitive Comments Cognitive Assessment Comments Pt needing concrete simple cues to be able to follow commands to wash her face and for mobility needs. Pt not able to recall details of her home step up at this time and pt's answering all the questions for her. OT- Vision and Hearing OT- Hearing Assessment OT- Hearing Assessment WFL M7 OT- IP Mobility and Balance Start: 01/31/22 12:07 Freq: Status: Active Protocol: Document 01/31/22 12:08 [facility] (Rec: 01/31/22 12:37 [facility] [id number]) OT- Bed Mobility Assessment Rolling Type of Rolling Roll to Right Level of Assistance Minimal Assistance Supine to Sit Supine to Sit Assist Minimal Assistance Sit to Supine Sit to Supine Assist Minimal Assistance OT-Transfer Assessment Sit to and From Stand Sit to and from Stand Minimal Assistance Comments Mobility Comments CIPRIANO from [employer] DESK ANALYST and mainly just guiding her and with cues for bed mobility needs. CIPRIANO to stand to FWW. BP supine 123/61 , sitting 124/50, standing 91/ 44 and 79/53, sitting 133/63 and supine 138/65 and pt asymptomatic throughout. OT- Balance Assessment Sitting Balance and Reactions Static Sitting Balance Ability Good Standing Balance and Reactions Static Standing Balance Ability Fair M8 OT- IP Objective Assessments Start: 01/31/22 12:07 Freq: Status: Active Protocol: Document 01/31/22 12:08 [facility] (Rec: 01/31/22 12:37 [facility] [id number]) OT Strength Comments Strength Comments Not formally tested at least 3 -/5 per pt being able to assist for ADl and mobility needs. OT- Coordination Assessment Comments Coordination Comments Assist to open items for grooming needs. M9 OT- IP Assessment and Plan Start: 01/31/22 12:07 Freq: Status: Active Protocol: Document 01/31/22 12:08 [facility] (Rec: 01/31/22 12:37 [facility] [id number]) OT Summary Assessment and Plan Potential Rehabilitation Potential Fair Analytic Complexity at Evaluation Moderate Summary OT Impairments Balance,Coordination, Functional Cognition, Functional Mobility,Self- Feeding,Grooming,Dressing, Toileting,Bathing,Toilet Transfers,Shower Transfers, Activity Tolerance Progress Towards Goals Slow Progress due to Medical Issues,Slow Progress due to Activity Tolerance,Slow Progress due to Cognition Assessment Summary Pt MOD complexity and main barriers are confusion and needing step by step commands to follow- however per pt's prior at home needing to assist pt for all needs for safety and sequencing for ADl and mobility needs. Pt greatly benefit from home health and 24/ assist. Goals Grooming Goal Minimal Assistance Dressing Goal Moderate Assistance Toileting Goal Moderate Assistance Toilet Transfer Goal Contact Guard Assistance Shower Transfer Goal Minimal Assistance Days to Meet Goals 7 Frequency of Treatment Frequency Of Treatment Once a Day Treatment Plan OT Treatment Plan ADL Training,Functional Cognition Training,Functional Mobility,Patient/Family Education,Discharge Planning Other Treatment Recommendations and Next shower if still here Treatment Focus Discharge Recommendations OT Discharge Recommendations Home with 24/7 Assist Available,Home Health Home Equipment Needs wc, bsc, fww Transportation Needs at Discharge Private Vehicle
--- NOTE | 2022-01-31 13:04 | CM.DPC ---
DCP Cont: Pt is medically stable for discharge. Pt to discharge home via home health. DCP faxed referral over to [facility]катерина @ [facility] responded and can accept the patient. Will need to fax over d/c summary when available. Pt and pt spouse agreeable to plan. No other needs at this time. Elizabeth French RN/DCP
--- NOTE | 2022-01-31 13:27 | PC.NURSE ---
Pt receive discharge orders this afternoon. Ortho B/P WNL Denies discomfort. Pt RAC HL D/C'd intact. D/C instructions given to pt & spouse. Pt escported by staff via W/C to waiting vehicle. D/C in stable condition.
--- NOTE | 2022-01-31 16:15 | PM.DS.1 ---
History of Present Illness History of Present Illness Date Patient Seen: 01/31/22 Time Patient Seen: 11:00 Chief complaint: Dizziness/GLF Narrative: Krissy Joyner is a 71-year-old female with history of hypertension, B-cell lymphoma, confusion, left renal mass with CKD, Port-A-Cath in place, history of neutropenia and a recent history of recent falls and is currently on Levaquin for acute cystitis which was started 3 days ago.? Patient had an episode of hypotension with systolic blood pressure 68 over 40s and a controlled weakness/syncopal episode and did not sustain any injury.? Patient is undergoing chemotherapy and last week was found to have tumor lysis syndrome and is currently on allopurinol. Patient having any fever chills nausea vomiting.? Having headache and increased back pain.? Normally walks at home with a walker but needs standby assistance.? Significant confusion per the .? Medical history information obtained from .? Patient says that she does not have any concerns.? She defers to her for information. Patient started trazodone last night for the 1st time took 100 mg tablet.? Slept very well and was calm, however had the problems she did have this morning and it is concerning that this is a side effect trazodone. Discharge Providers Provider Date of admission: 01/29/22 15:02 Discharge Date: 01/31/22 Primary care physician: Ana Marie PA-C Consults: 01/29/22 14:43 Consult to Oncology Stat Comment: Consulting Provider: Marlene Kearns Reason for consultation: altered mental status Has provider been notified: Yes 01/29/22 18:48 Consult to Dietitian, Adult Routine Comment: Reason For Exam: Pt has not been eating at home 01/30/22 08:18 Consult to Occupational Therapy Evaluate & Treat Comment: please obtain orthostatics as well Physician Instructions: Evaluate and treat 01/30/22 08:28 Consult to Physical Therapy Evaluate & Treat Comment: Physician Instructions: Evaluate and Treat 01/31/22 12:14 Consult to Home Health Routine Comment: Reason For Exam: Evaluate and treat- RN, PT, OT, Aide Discharge provider: Andrei Alvarenga, DO Summary Hospital Course Discharge Diagnosis: 1. Leukopenia.? Post chemotherapy.? Improving from 2 days ago.? Continue to follow. 2. Acute urinary tract infection.? Urine culture with no growth. Received rocephin x3 days. 3. Concern for adverse effect of trazodone.? Decreased patient dose of trazodone for this evening to only 25 mg.? Follow clinically. 4. Increased neutrophil bands.? Currently at 10%.? Increased from 2 days ago.? Consistent with acute infection. 5. Non-Hodgkin's lymphoma on chemotherapy.? Follow clinically. Spoke with Dr. Kearns who agreed with above management. 6. Tumor lysis syndrome.? On allopurinol.? Current uric acid is within normal level.? Continue allopurinol.? Follow clinically. 7. Orthostatic hypotension. Improved with RBCs and fluids. Discharged on half dose of coreg and made amlodipine PRN if SBP >180. 8. Acute kidney injury.? Monitor labs. Improving. 9. Anemia, likely secondary to bone marrow suppression from chemo. Hgb 7.5. Will get 1 unit PRBC to get above threshold of 8. Dr. Kearns agrees with this. Hospital Course: Admitted with dizziness and weakness with confusion. Found to possibly have UTI so received 3 days of rocephin. Cognition improved but waxed and waned. Received one unit of blood for Hgb of 7.5. Was orthostatic positive however asymptomatic so discharged home on half dose of coreg at 6.25 BID and told to only take her amlodipine PRN if BP >180. Home health PT setup for ongoing therapy. Uric acid was normal as she had recent tumor lysis syndrome from chemo. Time Spent with Patient Time spent: Greater than 30 minutes Exam Vital Signs (past 8 hours): - 01/31/22 09:35 01/31/22 09:00 01/31/22 10:35 Temperature 98.7 F Pulse Rate 93 H Pulse Rate [Orthostatic Lying] Pulse Rate [Orthostatic Sitting] Pulse Rate [Orthostatic Standing] Respiratory Rate 18 Blood Pressure 158/73 H 124/50 L Blood Pressure [Orthostatic Lying] 123/61 Blood Pressure [Orthostatic Sitting] 124/50 L Blood Pressure [Orthostatic Standing] 101/44 L Pulse Oximetry 99 01/31/22 10:30 Temperature Pulse Rate Pulse Rate [Orthostatic Lying] 93 H Pulse Rate [Orthostatic Sitting] 93 H Pulse Rate [Orthostatic Standing] 115 H Respiratory Rate Blood Pressure Blood Pressure [Orthostatic Lying] 123/61 Blood Pressure [Orthostatic Sitting] 124/50 L Blood Pressure [Orthostatic Standing] 91/44 L Pulse Oximetry Oxygen Delivery Method Room Air Oxygen Flow Rate 0 Narrative Exam Narrative: General: cooperative, comfortable, alert and oriented, in no acute distress, denies any pain HEENT: symmetrical facial expressions, moist mucous membranes, head normocephalic. Midline. Cardiovascular: regular rate and rhythm, no peripheral edema, S1-S2 with rub, no gallops, warm extremity without peripheral edema Respiratory: normal effort, able to speak in complete sentences, no wheezing, stridor, or abnormal breath sounds. GI: abdomen soft, nontender to palpation, nondistended, without masses, no tenderness MSK: moves all extremities, no weakness, normal tone Skin: without pallor or erythema, no rashes or lesions Neuro: normal speech and confusion is normal for patient at baseline, appears to be oriented to person and place Psych: Now oriented. Objective Labs Result Diagrams: 01/31/22 05:34 01/31/22 05:34 Labs: Laboratory Results - last 24 hr 01/30/22 01/31/22 01/31/22 09:38 05:34 05:34 WBC 3.2 L D RBC 3.35 L Hgb 9.5 L Hct 27.2 L MCV 81.3 MCH 28.5 MCHC 35.0 RDW 15.8 H Plt Count 67 L Neut % (Auto) Not Reportable Lymph % (Auto) Not Reportable Sawyer % (Auto) Not Reportable Eos % (Auto) Not Reportable Baso % (Auto) Not Reportable Lymph # (Auto) Not Reportable Sawyer # (Auto) Not Reportable Baso # (Auto) Not Reportable Total Counted 100 Seg Neutrophils % 63.0 Band Neutrophils % 8.0 H Lymphocytes % (Manual) 12.0 L Monocytes % (Manual) 9.0 Eosinophils % (Manual) 1.0 L Metamyelocytes % 3.0 H Myelocytes % 4.0 H Neutrophils # (Manual) 2272 L Platelet Estimate Decreased on smear RBC Morphology See below Sodium 137 Potassium 3.4 Chloride 105 Carbon Dioxide 23 BUN 12 Creatinine 1.16 H Estimated GFR 50 L BUN/Creatinine Ratio 10.3 Glucose 96 Calcium 8.6 Crossmatch See Detail [facility] Medical History Acute kidney injury Anxiety Arthritis CKD (chronic kidney disease) Diffuse lymphadenopathy Headache, migraine History of depression History of non-Hodgkin's lymphoma HLD (hyperlipidemia) HTN (hypertension) Hx of thyroid nodule Hydronephrosis, left Left renal mass Low back pain Neuropathy Panic disorder Renal mass Rheumatoid arthritis Surgical History H/O breast biopsy (~1985) History of appendectomy (~1966) History of surgery (03/03/18) History of thoracentesis Hx of lymph node biopsy (2017) Family History Mother Hypertension Stroke IBS (irritable bowel syndrome) Thyroid disease Brother Hodgkins lymphoma Grandmother Stroke Social History marital status: number of children: 2 household members: spouse Smoking Status: Never smoker alcohol intake: former Type(s) of exercise: other frequency: 5-6 times per week Discharge Plan Discharge Plan Patient Disposition: Home Health Service Provider Discharge Comment: You were admitted for dizziness and found to have a UTI. We treated this with 3 days of IV antibiotics. I've adjusted your blood pressure meds some as they might have been contributing to your dizziness. We also gave you a unit of blood which should help. Home health PT has been setup so you can get therapy at home. Discharge orders & Medications Prescriptions: Continued imipramine HCl [Tofranil] 50 MG tablet 50 mg PO Q DAY Qty: 0 Rx Instructions: Takes at bedtime trazodone 100 mg tablet 100 mg PO BEDTIME PRN (Reason: insomnia) Qty: 30 0RF sertraline 100 mg Tablet 100 mg PO DAILY lorazepam 0.5 mg Tablet 0.5 mg PO BEDTIME PRN (Reason: Sleep, anxiety) Qty: 30 0RF oxycodone 10 mg Tablet 10 mg PO Q6H PRN (Reason: cancer pain) Qty: 60 0RF Rx Instructions: 1 pill by mouth every 6 hours on an as-needed basis prednisone 20 mg Tablet See Rx Instructions .ROUTE .COMPLEX Qty: 100 0RF Rx Instructions: Take 2 pills (60 mg) on days 1-5 every 21 days. allopurinol 100 mg Tablet 100 mg PO DAILY cholecalciferol (vitamin D3) [Vitamin D3] 50 mcg (2,000 unit) Tablet 50 mcg PO DAILY gabapentin 100 mg capsule 100 mg PO BEDTIME Changed carvedilol 12.5 mg Tablet 6.25 mg PO BIDWMEAL Qty: 30 0RF Label Comments: states she missed her evening dose last night and am dose this morning Rx Instructions: must administer with a meal/food amlodipine [Norvasc] 2.5 mg Tablet 2.5 mg PO DAILY PRN (Reason: if blood pressure >180) Qty: 30 0RF Discontinued levofloxacin 500 mg tablet 500 mg PO DAILY 6 Days Qty: 7 0RF Follow up/Referrals: Ana Marie PA-C [Primary Care Provider] - Discharge Data Primary Care Provider: Ana Marie Attending Provider: Melania Sarmiento VTE Deep Vein Thrombosis/Pulmonary Embolism Present on Admission: No
--- NOTE | 2022-02-01 08:32 | CM.DPC ---
DCP Cont: Faxed DC Summary over to [facility]. Patient discharged yesterday. Madhuri Vences RN/Insulation Helper
[2022-02-05 13:40] LABS: White Blood Cell Count 1.5 X10^3/uL (4.5-11.0)
== END 2022-01-31 13:29 | disposition home health service (06) ==
LOC: ED 14:58 → AC 15:03
PROVIDERS: Student in an Organized Health Care Education/Training Program; Admitting Provider Neuromusculoskeletal Medicine, Sports Medicine; Emergency Provider Nurse Practitioner Critical Care Medicine; Family Provider Internal Medicine; PCP Physician Assistant; Referring Provider Nurse Practitioner Critical Care Medicine; Visit Provider Neuromusculoskeletal Medicine, Sports Medicine
DX: D70.1 Agranulocytosis secondary to cancer chemotherapy (principal); R42 Dizziness and giddiness; Z91.81 History of falling; C85.10 Unspecified B-cell lymphoma, unspecified site; D64.9 Anemia, unspecified; N30.00 Acute cystitis without hematuria; I12.9 Hypertensive chronic kidney disease with stage 1 through stage 4 chronic kidney disease, or unspecified chronic kidney disease; N18.9 Chronic kidney disease, unspecified; N17.9 Acute kidney failure, unspecified; I95.1 Orthostatic hypotension; E88.3 Tumor lysis syndrome; Z20.822 Contact with and (suspected) exposure to COVID-19
CPT/HCPCS: 36415; 36430; 70450; 71045; 80048; 80053; 81001; 83605; 83735; 83880; 84100; 84145; 84484; 84550; 85007; 85025; 85610; 86850; 86900; 86901; 87040; 87086; 87635; 93005; 93010; 96361; 96365; 96366; 96372; 97110; 97163; 97166; 97530; 99284; C9803; G0378; P9016; J0696; J1642; J1650

== ENCOUNTER 2022-02-16 16:22 | Emergency (ER) | payer MEDICARE, OTHER, SELFPAY ==
[2022-01-29 18:29] VITALS: BMI 26.0
[2022-02-16] VITALS (15 sets, daily range): BP systolic 138–203; BP diastolic 69–91; PULSE 100–116; RESP 19–25; TEMP 37.1; O2SAT 92–100; BMI 26.1
[2022-02-16] MEDS: VANCOMYCIN 1,250 MG/250 ML PIGGYBACK 250 MG IV (17:10)
--- NOTE | 2022-02-16 21:07 | ED.RECABL ---
HPI - Recheck/Abnormal Lab/Rx General Chief Complaint: Recheck/Abnormal Lab/Rx Stated Complaint: Non hodgkin's lymphoma, Sent from ONC Time Seen by Provider: 02/16/22 20:22 Source: patient Mode of arrival: Ambulatory History of Present Illness HPI narrative: 71-year-old female nonsmoker with history of diffuse large B-cell lymphoma, prior neutropenia, recent hospitalization for tumor lysis syndrome is sent by Oncology for evaluation. She had her 2nd round of RCHOP on 02/09 and is managed locally by Dr. Kearns. She's had poor appetite and frequent constipation and complains of episodes of waxing and waning generalized abdominal pain without obvious provocation or palliation. She is had decreased bowel movements but is passing gas. She denies any dysuria, frequency or urgency. She is frequently confused and has been for quite some time and is at her neurologic baseline per who is at the bedside. She is not dizzy nor weak or lightheaded and denies any chest pain or shortness of breath. She had routine labs ordered which found white blood cells of 0.2 and was sent here for evaluation. She is had no runny nose, sore throat or cough. She denies any fever or shaking chills. She denies any weakness and other than the episodes of abdominal pain is at her baseline Related Data Home Medications Medication Instructions Recorded Confirmed imipramine HCl 50 mg tablet 50 mg PO Q DAY panic ##0 12/01/12 01/29/22 (Tofranil) sertraline 100 mg tablet 100 mg PO DAILY 07/24/21 01/29/22 gabapentin 100 mg capsule 100 mg PO BEDTIME 11/21/21 01/29/22 allopurinol 100 mg tablet 100 mg PO DAILY 01/29/22 01/29/22 cholecalciferol (vitamin D3) 50 50 mcg PO DAILY 01/29/22 01/29/22 mcg (2,000 unit) tablet (Vitamin D3) Previous Rx's Medication Instructions Recorded lorazepam 0.5 mg tablet 0.5 mg PO BEDTIME PRN Sleep, 12/25/21 anxiety #30 tabs oxycodone 10 mg tablet 10 mg PO Q6H PRN cancer pain #60 01/01/22 tabs prednisone 20 mg tablet See Rx Instructions .Route 01/19/22 .COMPLEX DLBCL #100 tabs trazodone 100 mg tablet 100 mg PO BEDTIME PRN insomnia #30 01/27/22 tabs amlodipine 2.5 mg tablet (Norvasc) 2.5 mg PO DAILY PRN if blood 01/31/22 pressure >180 #30 tabs carvedilol 12.5 mg tablet 6.25 mg PO BIDWMEAL #30 tabs 01/31/22 allopurinol 100 mg tablet 100 mg PO DAILY #30 tabs 02/09/22 prednisone 20 mg tablet 60 mg PO DIRECTED #30 tabs 02/09/22 levofloxacin 500 mg tablet 500 mg PO DAILY #6 tabs 02/17/22 Allergies Allergy/AdvReac Type Severity Reaction Status Date / Time Iodinated Contrast Media Allergy Severe Hives Verified 01/29/22 13:01 [Iodinated Contrast- Oral and IV Dye] amoxicillin Allergy Intermediate Rash Verified 01/29/22 13:01 atorvastatin Allergy Intermediate Muscle Pain Verified 01/29/22 13:01 Sulfa (Sulfonamide Allergy Intermediate Hives Verified 01/29/22 13:01 Antibiotics) Review of Systems Review of Systems Narrative: GENERAL: Denies chills, fatigue, malaise, fever, sweats. HEENT: Denies sinus pain, ear pain, sore throat, difficulty swallowing, dizziness. RESPIRATORY: Denies dyspnea, cough, wheezing, hemoptysis, sputum. CARDIOVASCULAR: Denies chest pain, palpitations, orthopnea, edema, GASTROINTESTINAL: See HPI : Denies dysuria, frequency, incontinence, hematuria, urinary retention. MUSCULOSKELETAL: denies weakness, joint pain, or bony pain SKIN: Denies rash, skin lesions, or other NEUROLOGIC: Denies weakness, headache, numbness, change in speech, confusion, seizures, incoordination. PSYCHIATRIC: No concerning psychosocial issues. 12 point review of systems is negative except for those stated above Patient History Medical History Acute kidney injury Anxiety Arthritis CKD (chronic kidney disease) Diffuse lymphadenopathy Headache, migraine History of depression History of non-Hodgkin's lymphoma HLD (hyperlipidemia) HTN (hypertension) Hx of thyroid nodule Hydronephrosis, left Left renal mass Low back pain Neuropathy Panic disorder Renal mass Rheumatoid arthritis Surgical History H/O breast biopsy (~1985) History of appendectomy (~1966) History of surgery (03/03/18) History of thoracentesis Hx of lymph node biopsy (2018) Family History Mother Hypertension Stroke IBS (irritable bowel syndrome) Thyroid disease Brother Hodgkins lymphoma Grandmother Stroke Social History marital status: number of children: 2 household members: spouse Smoking Status: Never smoker alcohol intake: former Type(s) of exercise: other frequency: 5-6 times per week Smoking Status: Never smoker alcohol intake frequency: holidays/special occasions only Substance Use Type: does not use Exam Narrative Exam Narrative: GENERAL: [71] year old patient appears stated age. Well-developed patient, in mild distress. Pleasantly confused HEAD: Atraumatic. Normocephalic. EYES: Pupils equal round and reactive. Extraocular motions intact. No scleral icterus. No injection or drainage. ENT: Moist mucous membranes Nose without bleeding, purulent drainage. Throat without erythema, tonsillar hypertrophy or exudate. Airway patent. NECK: Trachea midline. Non tender CARDIOVASCULAR: Regular rate and rhythm without murmurs, gallops, or rubs. RESPIRATORY: Clear to auscultation. Breath sounds equal bilaterally. No wheezes, rales, or rhonchi. GASTROINTESTINAL: Abdomen soft, non-tender, nondistended. Bowel sounds present in all 4 quadrants EXTREMITIES: No edema or joint tenderness. BACK: Nontender without deformity or crepitance. No flank tenderness. NEURO: AOx3. SKIN: No rash or erythema of visible areas Initial Vital Signs Initial Vital Signs: Vital Signs Temperature 98.8 F 02/16/22 16:56 Pulse Rate 116 H 02/16/22 16:56 Respiratory Rate 20 02/16/22 16:56 Blood Pressure 142/72 H 02/16/22 16:56 Pulse Oximetry 100 02/16/22 16:56 Oxygen Delivery Method 02/16/22 16:56 Course Orders Ordered: ED Orders 02/16/22 20:11 EKG-12 Lead Stat 02/16/22 21:45 Urine Microscopic Stat 02/16/22 22:40 CT chest abd pel wo con Stat Discontinued Medications Diphenhydramine HCl (Diphenhydramine 50 Mg/Ml Vial) 25 mg IV NOW ONE Stop: 02/16/22 22:35 Last Admin: 02/16/22 22:43 Dose: Not Given Documented By: KRISTY Famotidine (Famotidine 20 Mg/2 Ml Vial) 20 mg IV NOW MARIEL Vancomycin HCl (Vancomycin) 1,250 mg in 250 mls @ 250 mls/hr IV NOW ONE Stop: 02/16/22 18:06 Last Infusion: 02/16/22 18:10 Dose: 0 mls/hr Documented By: Admin: 02/16/22 17:10 Dose: 250 mls/hr Documented By: THEODORE Sodium Chloride (Normal Saline 0.9%) 500 mls @ 1,000 mls/hr IV BOLUS ONE Stop: 02/16/22 22:57 Last Infusion: 02/17/22 00:04 Dose: 0 mls/hr Documented By: Admin: 02/16/22 22:48 Dose: 1,000 mls/hr Documented By: KRISTY Levofloxacin (Levofloxacin 250 Mg Tablet) 500 mg PO NOW ONE Stop: 02/17/22 01:24 Last Admin: 02/17/22 01:36 Dose: 500 mg Documented By: KRISTY Methylprednisolone (Methylprednisolone 125 Mg/2 Ml Vial) 125 mg IV NOW ONE Stop: 02/16/22 22:35 Last Admin: 02/16/22 22:43 Dose: Not Given Documented By: KRISTY Vital Signs Vital signs: Vital Signs - 8 hr 02/16/22 20:03 02/16/22 20:04 02/16/22 20:04 Pulse Rate 106 H Respiratory Rate Blood Pressure 203/91 H Pulse Oximetry 92 98 Oxygen Delivery Method Room Air 02/16/22 20:30 02/16/22 20:30 02/16/22 21:00 Pulse Rate 105 H Respiratory Rate 23 Blood Pressure 171/80 H 190/85 H Pulse Oximetry 99 Oxygen Delivery Method 02/16/22 21:00 02/16/22 21:30 02/16/22 21:30 Pulse Rate 101 H 102 H Respiratory Rate 22 19 Blood Pressure 186/84 H Pulse Oximetry 100 100 Oxygen Delivery Method 02/16/22 21:37 02/16/22 21:40 02/16/22 22:00 Pulse Rate 104 H 102 H Respiratory Rate Blood Pressure 138/71 Pulse Oximetry 100 100 Oxygen Delivery Method 02/16/22 22:01 02/16/22 22:30 02/16/22 22:31 Pulse Rate 101 H 105 H Respiratory Rate Blood Pressure 160/69 H Pulse Oximetry 100 99 Oxygen Delivery Method 02/16/22 22:31 02/16/22 23:03 02/16/22 23:04 Pulse Rate 101 H 104 H 103 H Respiratory Rate 24 25 H Blood Pressure Pulse Oximetry 100 96 Oxygen Delivery Method 02/16/22 23:04 02/16/22 23:30 02/17/22 00:00 Pulse Rate 100 H Respiratory Rate 20 Blood Pressure 178/77 H 182/77 H Pulse Oximetry 100 Oxygen Delivery Method Room Air 02/17/22 00:00 02/17/22 00:30 02/17/22 01:00 Pulse Rate 102 H 104 H Respiratory Rate 27 H 39 H Blood Pressure 183/77 H Pulse Oximetry 100 99 Oxygen Delivery Method 02/17/22 01:00 Pulse Rate 103 H Respiratory Rate 18 Blood Pressure Pulse Oximetry 99 Oxygen Delivery Method MDM - Recheck/Abnormal Lab/Rx Lab Data Labs: Lab Results 02/16/22 Range/Units 21:45 Urine RBC 10-30/hpf H (0-5/HPF) Urine WBC None seen (0-5/HPF) Urine Bacteria None seen (None) Ur Culture Indicated? Cult not indicated Urine Dip Bedside Urine Glucose Negative Bedside Urine Bilirubin - Negative Bedside Urine Ketone - Negative Urine Specific [address] 1.010 Bedside Urine Occult Blood +++ Bedside Urine pH 6.0 Bedside Urine Protein + 30 Bedside Urine Urobilinogen - Negative Bedside Urine Nitrite - Negative Bedside Urine Leukocytes - Negative Esterase [facility] Narrative Medical decision making narrative: Multiple etiologies for patient's symptoms considered including: [Sepsis versus bowel obstruction versus evolution lymphoma versus other] Patient's largely asymptomatic except for episodes of abdominal pain, imaging demonstrates overall improvement of cancer burden and no evidence of bowel obstruction or other intra-abdominal catastrophe. Patient has had no fever or chills or other infectious type complaint. No indication for hospitalization at this time. Will cover with Levaquin for 1 week per prior recommendations by Dr. Kearns under similar circumstances a few weeks ago Findings and discharge diagnosis discussed with patient/family followed by verbalization of understanding Return precautions discussed with patient/family whom verbalize understanding. Discharge Plan Departure Patient Disposition: Home Clinical Impression: Neutropenia, NHL (non-Hodgkin's lymphoma), Abdominal pain Instructions: DI for Neutropenia Activity Restrictions/Additional Instructions: *You have been diagnosed with [neutropenia and abdominal pain. As we discussed labs are otherwise reassuring, cultures are not yet back and the CT scan shows improvement in lymphadenopathy but no sign of obstruction or infectious process. Also as we discussed due to the low white blood cell count and increased potential for infection we will treat for 7 days of empiric Levaquin, similar to your visit earlier in the month under similar circumstances] *What to do: *Please continue to take your regular medications as directed. [ x] New medication prescriptions sent to your pharmacy: [[facility] ] [ ] New medication written as a paper prescription [ ] No new medications given *Please follow up with your primary care provider in 2-3 days, call for an appointment. Let them know you were seen in the Emergency Department and that we ask that you be seen in follow up. We will electronically transmit a record of today's note if your PCP is in our system *Return to Emergency Department if you should have any new, worsening or concerning symptoms, such as [fever greater than 101 F, shaking chills, worsening pain, persistent vomiting or other bothersome symptoms] Prescriptions: New levofloxacin 500 mg tablet 500 mg PO DAILY Qty: 6 0RF No Action imipramine HCl [Tofranil] 50 MG tablet 50 mg PO Q DAY Qty: 0 Rx Instructions: Takes at bedtime trazodone 100 mg tablet 100 mg PO BEDTIME PRN (Reason: insomnia) Qty: 30 0RF sertraline 100 mg Tablet 100 mg PO DAILY lorazepam 0.5 mg Tablet 0.5 mg PO BEDTIME PRN (Reason: Sleep, anxiety) Qty: 30 0RF oxycodone 10 mg Tablet 10 mg PO Q6H PRN (Reason: cancer pain) Qty: 60 0RF Rx Instructions: 1 pill by mouth every 6 hours on an as-needed basis prednisone 20 mg Tablet See Rx Instructions .ROUTE .COMPLEX Qty: 100 0RF Rx Instructions: Take 2 pills (60 mg) on days 1-5 every 21 days. allopurinol 100 mg Tablet 100 mg PO DAILY Qty: 30 4RF prednisone 20 mg Tablet 60 mg PO DIRECTED Qty: 30 0RF Rx Instructions: Take 3 tablets (60 mg) daily for 5 days on days 1-5 of each chemotherapy cycle allopurinol 100 mg Tablet 100 mg PO DAILY cholecalciferol (vitamin D3) [Vitamin D3] 50 mcg (2,000 unit) Tablet 50 mcg PO DAILY carvedilol 12.5 mg Tablet 6.25 mg PO BIDWMEAL Qty: 30 0RF Label Comments: states she missed her evening dose last night and am dose this morning Rx Instructions: must administer with a meal/food amlodipine [Norvasc] 2.5 mg Tablet 2.5 mg PO DAILY PRN (Reason: if blood pressure >180) Qty: 30 0RF gabapentin 100 mg capsule 100 mg PO BEDTIME Referrals: Ana Marie PA-C [Primary Care Provider] - Visit Report Forms: Patient Portal/API
[2022-02-16 22:24] LABS: RBC Urine 10-30/HPF (0-5/HPF); WBC Urine None Seen (0-5/HPF)
[2022-02-16 22:25] LABS: Bacteria Urine None Seen; Culture Indicated Urine Cult Not Indicated
--- NOTE | 2022-02-16 22:40 | DI.CT.S_ITS ---
PROCEDURE: CT CHEST ABD PEL WO CON INDICATIONS: Abdominal pain, sent by oncology. History of lymphoma. TECHNIQUE: 5 mm thick sections acquired from the lung apices to the symphysis pubis. 5 mm thick coronal and sagittal reformats acquired, with additional 7 mm coronal MIP reformats through the lungs. For radiation dose reduction, the following was used: automated exposure control, adjustment of mA and/or kV according to patient size. COMPARISON: [facility], RG, CT PET SKULL BASE TO MID THIGH, 12/01/2021, 14:39. [facility], CT, CT CHEST ABD PEL WO CON, 01/06/2022, 10:36. FINDINGS: Image quality: Excellent. Lower Neck: No lymphadenopathy by size criteria. Thyroid: Visualized thyroid demonstrates heterogeneous enlargement of the thyroid with ill-defined nodules. Axillae: No lymphadenopathy by size criteria. Chest Wall: Unremarkable. Bones: Visualized osseous structures demonstrate no suspicious lesions. Lungs and Airways: No acute consolidation. There is mild linear scarring anteriorly within the lung bases. No suspicious pulmonary nodules. The trachea and central airways are patent. Pleura: No pneumothorax or pleural effusions. Heart: Heart size is normal. No pericardial effusion. Thoracic Vessels: The aorta and pulmonary arteries are normal in size. Mediastinum and Jasmin: No lymphadenopathy by size criteria. There is interval decrease in size of the prominent mediastinal lymph nodes identified on the prior study. Esophagus: No wall thickening. No hiatal hernia. ABDOMEN: Liver: There is interval decrease in size of multiple hepatic mass lesions including a large infiltrative mass in the left hepatic lobe involving segments 2 and 4A. There is also decrease in size of a large mass inferiorly within segment 6 of the right hepatic lobe which now measures approximately 3.6 x 2.3 cm in transverse dimension compared to 7.0 x 5.9 cm on the 01/06/2022 study. Gallbladder: Within normal limits without calcified gallstones. Biliary ducts: No biliary ductal dilatation. Pancreas: Unremarkable. Spleen: Normal in size. Adrenal Glands: No adrenal nodules. Kidneys and Ureters: There is a left ureteral stent redemonstrated without hydronephrosis. Proximal coil is again noted in the left renal pelvis and distal coil demonstrated in the bladder. There is persistent encasement along the mid left ureter along the course of the stent redemonstrated with decrease in size of the encasing cuong tissue. A discrete left renal mass is not identified in the absence of intravenous contrast to correlate with the areas of abnormal uptake on the prior PET-CT. Right kidney demonstrates no hydronephrosis or discrete mass. Stomach and Bowel: Stomach, small bowel loops, and colon are normal in caliber and wall thickness. No pericecal inflammatory changes to suggest appendicitis. Peritoneum: No abnormal intraperitoneal fluid. No free air. Ventral Wall: No hernia. Abdominal Nodes: There is decrease in size of a confluent retroperitoneal cuong mass encasing the aorta and inferior vena cava. This measures approximately 7.0 x 5.9 cm in transverse dimension on series 2, image 66 compared to 10 x 9.9 cm on the prior study at a comparable level. There is also decrease in confluent mesenteric lymphadenopathy within the upper abdomen along the celiac axis and pancreas. There is also decrease in size of enlarged scattered mesenteric lymph nodes. A [employer] mesenteric node in the right abdomen measures 1.2 x 0.9 cm on series 2, image 74 compared to 1.7 x 1.3 cm previously. As noted above, the retroperitoneal cuong mass encases the mid left ureter. Vessels: Aorta and inferior vena cava are normal in size. PELVIS: Pelvic Organs: Unremarkable. Bladder: Unremarkable. Pelvic Nodes: No enlarged lymph nodes. Miscellaneous: No inguinal hernias are seen. Bones: Visualized osseous structures demonstrate no suspicious focal lesions. IMPRESSION: 1. Decrease in size of retroperitoneal, mesenteric, and mediastinal lymphadenopathy as described. 2. Decrease in size of multiple hepatic mass lesions. 3. The findings are consistent with partial response to therapy. 4. Left ureteral stent redemonstrated without hydronephrosis. Dictated by: Jose Ring M.D. on 02/17/2022 at 0:02 Approved by: Jose Ring M.D. on 02/17/2022 at 0:25
[2022-02-16] MEDS: SODIUM CHLORIDE 0.9% 500 ML 1000 ML IV (22:48)
[2022-02-17] VITALS: BP 182/77; PULSE 102; RESP 27; O2SAT 100
[2022-02-17 00:30] VITALS: PULSE 104; RESP 39; O2SAT 99
[2022-02-17 01:00] VITALS: BP 183/77; PULSE 103; RESP 18; O2SAT 99
[2022-02-17] MEDS: levoFLOXacin 250 MG TABLET 500 MG PO (01:36)
== END 2022-02-17 01:57 | disposition home or self-care (01) ==
PROVIDERS: Emergency Provider Emergency Medicine; Family Provider Internal Medicine; PCP Physician Assistant
DX: D70.9 Neutropenia, unspecified (principal); C85.90 Non-Hodgkin lymphoma, unspecified, unspecified site; R10.84 Generalized abdominal pain; C83.36 Diffuse large B-cell lymphoma, intrapelvic lymph nodes; C82.28 Follicular lymphoma grade III, unspecified, lymph nodes of multiple sites
CPT/HCPCS: 71250; 74176; 80053; 81003; 81015; 83615; 84550; 85025; 87040; 93005; 96361; 96365; 96523; 99284; J0692

== ENCOUNTER → 2022-06-16 15:35 | Outpatient (CLI) | payer MEDICARE, OTHER, SELFPAY ==
[2022-01-29 18:29] VITALS: BMI 26.0
--- NOTE | 2022-06-16 15:36 | DI.MRI.S_ITS ---
PROCEDURE: MR LUMBAR SPINE WO/W CON INDICATIONS: incontinence TECHNIQUE: Noncontrast sagittal T1 spin echo and T2 fast echo, sagittal STIR, and T2 fast spin echo through the lumbar spine. In cases with scoliosis, additional coronal T2 fast spin echo may be performed. COMPARISON: None. FINDINGS: Normal lumbar vertebral body height and alignment. No suspicious focal marrow signal abnormality or bone marrow edema. No pathologic enhancement in the vertebral column. No abnormal enhancement in the intradural space. Normal morphology and signal intensity of the visualized cord. Normal position of the conus. Regional soft tissues normal. T12-L1: No spinal canal or neural foraminal stenosis. L1-L2: No spinal canal or neural foraminal stenosis. L2-L3: Disc bulge flattens the ventral thecal sac. No mass effect upon the traversing L3 nerve roots. Foraminal components of the disc bulge and facet hypertrophy combine to produce mild bilateral neural foraminal narrowing. L3-L4: No spinal canal stenosis. Disc bulge flattens the ventral thecal sac slightly. Foraminal components of the disc bulge combine with facet hypertrophy to produce mild bilateral neural foraminal narrowing. L4-L5: Disc bulge flattens and indents the ventral thecal sac with abutment but no obvious displacement of the descending L5 nerve roots in both subarticular zones. Mild bilateral neural foraminal narrowing due to foraminal components of the disc bulge and facet hypertrophy. L5-S1: Diffuse disc bulge with abutment and perhaps slight displacement of the bilateral descending S1 nerve roots, more so on the left. Foraminal components of the disc bulge and facet hypertrophy combine to produce moderate right and mild left neural foraminal narrowing. IMPRESSION: Multilevel multifactorial degenerative changes worst at L5-S1 and L4-L5. Dictated by: Moises Elder M.D. on 06/17/2022 at 9:05 Approved by: Moises Elder M.D. on 06/17/2022 at 9:08
== END ==
PROVIDERS: Family Provider Internal Medicine; PCP Physician Assistant; Referring Provider Internal Medicine Hematology & Oncology; Visit Provider Internal Medicine Hematology & Oncology
DX: C83.36 Diffuse large B-cell lymphoma, intrapelvic lymph nodes; C82.28 Follicular lymphoma grade III, unspecified, lymph nodes of multiple sites; M47.816 Spondylosis without myelopathy or radiculopathy, lumbar region; M47.817 Spondylosis without myelopathy or radiculopathy, lumbosacral region; R59.1 Generalized enlarged lymph nodes; M54.50 Low back pain, unspecified
CPT/HCPCS: 72158; A9579

== ENCOUNTER → 2022-06-30 13:23 | Outpatient (CLI) | payer MEDICARE, OTHER, SELFPAY ==
[2022-01-29 18:29] VITALS: BMI 26.0
--- NOTE | 2022-06-30 13:24 | DI.NM.S_ITS ---
PROCEDURE: AR RENAL FUNCTION W LASIX RADIOPHARMACEUTICAL: 10.4 mCi Tc-99m MAG3 IV and 20 mg furosemide IV. INDICATIONS: left ureteral stent TECHNIQUE: The patient was hydrated orally before the examination was begun. After intravenous administration of Tc-99m MAG3, posterior abdominal radionuclide angiogram and sequential (1 minute each frame) renal images were obtained. A time-activity curve for each kidney was generated and analyzed. To evaluate for obstruction, the patient was given 40 mg furosemide via slow intravenous injection after the start of the examination. Sequential images were obtained for up to an additional 20 minutes. COMPARISON: [facility]ound, US, US RENAL COMPLETE, 11/03/2021, 15:09. [place], [place] PET CT FUSION SKULL 2 THIGH, 03/04/2022, 9:57. [facility], CT, CT CHEST ABD PEL WO CON, 02/16/2022, 22:49. [place], [place] RENAL FUNCTION W LASIX, 11/25/2021, 9:29. [place], [place] PET CT FUSION SKULL 2 THIGH, 06/17/2022, 8:18. FINDINGS: Perfusion: There is normal vascular flow to both kidneys. Morphology: Both kidneys are normal in size and shape. No dilated collecting systems are seen. The ureters and bladder fill with tracer, and appear normal. Function: Both kidneys demonstrate normal cortical tracer uptake, with [id number] activity ranging from 3 to 5 minutes. The right kidney contributes 66.2% of total renal function. The left kidney contributes 33.8% of total renal function. Lasix stimulation: There is prompt clearance of tracer activity from the right renal collecting system. The half-time of emptying of tracer activity from the right pelvicaliceal system is 10.7 minutes. The half-time of emptying from the left pelvicaliceal system cannot be calculated due to insufficient tracer activity in the left renal collecting system. Normal emptying half-times are less than 10 minutes; borderline ranges are from 10 to 20 minutes. IMPRESSION: 1. Decreased left renal function. Left kidney contributes 33.8% of total renal function (previously 26.8% on 11/25/2021). 2. Grossly normal right renal function. 3. Unable to calculate T1/2 for left kidney because of insufficient tracer activity in the left renal collecting system. The patient has a left ureteral stent. Dictated by: Maurice Deleon M.D. on 06/30/2022 at 15:29 Approved by: Maurice Deleon M.D. on 06/30/2022 at 15:45
== END ==
PROVIDERS: Family Provider Internal Medicine; PCP Physician Assistant; Referring Provider Specialist; Visit Provider Specialist
DX: N17.9 Acute kidney failure, unspecified (principal); N18.30 Chronic kidney disease, stage 3 unspecified; N13.30 Unspecified hydronephrosis; N28.89 Other specified disorders of kidney and ureter; Z96.0 Presence of urogenital implants
CPT/HCPCS: 78708; A9562

== ENCOUNTER → 2022-07-23 13:48 | Outpatient (CLI) | payer MEDICARE, OTHER, SELFPAY ==
[2022-01-29 18:29] VITALS: BMI 26.0
== END ==
PROVIDERS: Family Provider Internal Medicine; PCP Physician Assistant; Visit Provider Specialist
DX: N28.89 Other specified disorders of kidney and ureter (principal); N13.5 Crossing vessel and stricture of ureter without hydronephrosis
CPT/HCPCS: 81002; 87077; 87086; 99215

== ENCOUNTER 2022-08-17 06:37 | Day surgery (SDC) | payer MEDICARE, OTHER, SELFPAY ==
[2022-01-29 18:29] VITALS: BMI 26.0
--- NOTE | 2022-08-17 | DI.RAD.S_ITS ---
PROCEDURE: XR ABDOMEN 1V INDICATIONS: CYSTO. TECHNIQUE: 2 intra-operative images acquired by the Urology service. COMPARISON: [facility], CR, XR ABDOMEN 1V, 11/27/2021, 18:47. FINDINGS: Two spot fluoroscopic images were obtained for retrograde urethrogram with stent placement. Upper aspect of the stent appears in good position. For detailed report please see Dr. Galdamez procedure notes. IMPRESSION: Satisfactory appearance of visualized portions of proximal stent placement. Dictated by: Aron Collazo M.D. on 08/17/2022 at 13:37 Approved by: Aron Collazo M.D. on 08/17/2022 at 13:41
[2022-08-17 07:10] VITALS: BP 176/76; PULSE 73; RESP 16; TEMP 36.4; O2SAT 98; BMI 26.2
--- NOTE | 2022-08-17 07:10 | PM.PREOP ---
Pre-operative Note COVID-19 Criteria for continued procedure: Expected advancement of disease process, Delay expected to result in less-positive ultimate med/surg outcome and Non-surgical alternatives not available or appropriate per current SOC Interval Note History & Physical reviewed/Exam performed by Physician: Yes Changes to H&P: No
[2022-08-17] MEDS: LACTATED RINGERS 1,000 ML 21 ML IV (07:20)
[2022-08-17] MEDS: VANCOMYCIN 1,000 MG/200 ML PIGGYBACK 200 MG IV (07:21)
[2022-08-17] MEDS: GENTAMICIN 160 MG in SODIUM CHLORIDE 0.9% 100 ML 104 MG IV (08:17)
--- NOTE | 2022-08-17 08:21 | SUR.OPER ---
Lithotomy on padded OR bed, head on pillow, arms secured on padded arm boards at <90 degrees abduction. Legs secured in padded yellow fins stirrups.
[2022-08-17] MEDS: IOPAMIDOL 30 ML VIAL INTRAURETH (08:26)
[2022-08-17 08:41] VITALS: BP 106/61; PULSE 69; RESP 12; TEMP 36.4; O2SAT 98
--- NOTE | 2022-08-17 08:41 | P.OP_ITS ---
Operative Date/Time/Diagnoses Date of procedure: 08/17/22 Time of procedure: 08:34 Pre-op diagnosis: 1. Left ureteral obstruction. 2. Retained left ureteral stent. Post-op diagnosis: same Procedure & Clinicians Procedure: 1. Cystoscopy/removal left ureteral stent. 2. Cystoscopy/left retrograde pyelogram. 3. Cystoscopy/placement left metallic ureteral stent (24 cm). Same procedure as scheduled: Yes Indications: 1. Left ureteral obstruction. 2. Left retroperitoneal mass. 3. Retained left ureteral stent. Surgeon: Moira Galdamez Click Yes if Unassisted: Yes Anesthesia Type: General Operative Notes Findings: 1. 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 2. Unremarkable bladder urothelium. Retained left ureteral stent with moderate amount of mucoid adherent debris. Closure Type: not applicable Specimen(s): none sent Applied: other (24 cm left metallic ureteral stent (cook).) Estimated Blood Loss (mL): 0 Blood products transfused: none Procedure in detail: The patient was positioned in supine was administered general anesthesia. She was then repositioned in semi lithotomy in the lower abdomen, genitalia, and groin were then prepped and draped in sterile fashion. The 22 [place] ngo endoscope was inserted lower urinary tract with findings as described above. An alligator foreign body grasper was then utilized to engage the distal end of the stent and remove the distal coil just beyond the urethral meatus. A 0.35 hybrid guidewire was then advanced through the lumen of the retained ureteral stent advanced proximally under fluoroscopic guidance. Once the coil was documented within the intrarenal collecting system the retained stent was backloaded off the wire and discarded. Now a 5 [place] pollock catheter was advanced over the hybrid guidewire and advanced proximally under fluoroscopic guidance. The hybrid guidewire was then temporarily backloaded out of the [place] catheter. A left retrograde pyelogram was then performed for localization and anatomical or ientation. Mild left hydro caliectasis was noted. The [place] catheter was then front loaded into the ngo endoscope. The hybrid guidewire was again advanced through the lumen of the [place] catheter. The proximal tip of the [place] catheter was then positioned at the left ureteropelvic junction and a ureteral length measurement made, which was 24 cm. The [place] catheter and ngo endoscope were then backloaded off the wire. Now the metallic stent introducer sheath was advanced over the hybrid guidewire advanced proximally under fluoroscopic guidance. The proximal metallic marker was positioned just above the left ureteropelvic junction. The inner, introducer was then backloaded out of the introducer sheath. The metallic stent was then loaded into the lumen of the introducer sheath advanced proximally. The inner introducer was then advanced into the lumen of the outer sheath introducer and was advanced proximally under fluoroscopic guidance. The position of the introducer was maintained at the level of the left ureteropelvic junction as evidenced by the metallic marker seen fluoroscopically. A coil was created within the renal pelvis as the outer sheath and introducer were back gently off the ureteral stent. The ngo endoscope was then reintroduced and the distal coil was confirmed within the bladder lumen proper. The bladder was then emptied and the ngo endoscope removed. The patient was then repositioned in supine, was awakened, then transferred to a gurney awake and in stable condition. Complications: none Post-operative Condition: stable Disposition: PACU Plan for aftercare: Discharge home.
[2022-08-17 08:46] VITALS: BP 144/52; PULSE 66; RESP 17; O2SAT 98
[2022-08-17 08:51] VITALS: BP 140/55; PULSE 65; RESP 12; TEMP 36.4; O2SAT 99
[2022-08-17 08:52] LABS: Appearance Urine UA CLEAR; Bilirubin Urine UA NEGATIVE (NEGATIVE); Glucose Urine UA NEGATIVE (Negative); Ketones Urine UA NEGATIVE (NEGATIVE); Leukocyte Esterase Urine UA 3+ (NEGATIVE); Nitrite Urine UA NEGATIVE (Negative); Occult Blood Urine UA 3+ (Negative); Protein Urine UA NEGATIVE (Negative); Urobilinogen Urine UA 0.2 E.U./dL (0.2)
[2022-08-17 08:57] VITALS: BP 139/55; PULSE 59; RESP 16; TEMP 36.4; O2SAT 99
[2022-08-17 09:21] LABS: Color Urine UA STRAW; RBC Urine 5-10/HPF (0-5/HPF); WBC Urine 5-10/HPF (0-5/HPF)
[2022-08-17 09:22] LABS: Bacteria Urine Few (2-10); Culture Indicated Urine Specimen Cultured; Squamous Epithelial Cell Urine None Seen (0-5/HPF)
== END 2022-08-17 09:39 | disposition home or self-care (01) ==
PROVIDERS: Family Provider Internal Medicine; PCP Physician Assistant; Referring Provider Specialist; Visit Provider Specialist
PROC: (CPT 52332; principal; 2022-08-17 07:45)
DX: N13.9 Obstructive and reflux uropathy, unspecified (principal); Z46.6 Encounter for fitting and adjustment of urinary device; C85.10 Unspecified B-cell lymphoma, unspecified site; N36.2 Urethral caruncle; N95.2 Postmenopausal atrophic vaginitis
CPT/HCPCS: 52332; 74018; 76000; 81001; 87086; J2704; J3010; Q9967

== ENCOUNTER → 2022-09-21 10:11 | Outpatient (CLI) | payer MEDICARE, OTHER, SELFPAY ==
[2022-01-29 18:29] VITALS: BMI 26.0
--- NOTE | 2022-09-21 10:12 | DI.NM.S_ITS ---
PROCEDURE: [place] RENAL FUNCTION W LASIX RADIOPHARMACEUTICAL: 10.9 mCi Tc-99m MAG3 IV and 40 mg furosemide IV. INDICATIONS: Mag3 lasix renogram TECHNIQUE: The patient was hydrated orally before the examination was begun. After intravenous administration of Tc-99m MAG3, posterior abdominal radionuclide angiogram and sequential (1 minute each frame) renal images were obtained. A time-activity curve for each kidney was generated and analyzed. To evaluate for obstruction, the patient was given 40 mg furosemide via slow intravenous injection after the start of the examination. Sequential images were obtained for up to an additional 20 minutes. COMPARISON: [place], [place], [place] RENAL FUNCTION W LASIX, 06/30/2022, 14:07. FINDINGS: Perfusion: Delayed flow to the left kidney. Morphology: Normal shape of the kidneys. No significant collecting system dilation. Normal tracer accumulation in the bladder Function: Normal right renal cortical uptake, with time to peak of 8 minutes. Delayed left renal cortical uptake worsened from prior The right kidney contributes 73% % of total renal function. The left kidney contributes 27% % of total renal function. This asymmetry is worsened Lasix stimulation: After Lasix, there is retention of contrast in the left kidney, with no appreciable excretion. The half-time of emptying of tracer activity from the right pelvicaliceal system is 4.4 minutes. Normal emptying half-times are less than 10 minutes; borderline ranges are from 10 to 20 minutes. IMPRESSION: Worsened, asymmetric left renal dysfunction compared to 06/30/2022. Left kidney contributes 27% of function. There is no appreciable excretion of radiotracer following diuretic administration of left kidney. There is contrast seen accumulating over time. Dictated by: Luís Asencio M.D. on 09/21/2022 at 12:27 Approved by: Luís Asencio M.D. on 09/21/2022 at 12:37
== END ==
PROVIDERS: Family Provider Internal Medicine; PCP Physician Assistant; Referring Provider Specialist; Visit Provider Specialist
DX: N13.1 Hydronephrosis with ureteral stricture, not elsewhere classified; N28.89 Other specified disorders of kidney and ureter; N17.9 Acute kidney failure, unspecified
CPT/HCPCS: 78708; A9562